=== PATIENT | female | born 1940 | race Caucasian/White ===

== ENCOUNTER 2019-11-04 08:15 | Outpatient (CLI) | payer MEDICARE, SELFPAY ==
--- NOTE | ~2019-11-04 | CT_ITS ---
EXAMINATION: CT chest high resolution wo az DATE: 11/04/2019 10:12 INDICATION: Shortness of breath TECHNIQUE: Computed tomography (CT) of the chest was performed without intravenous contrast. The dose -length product (DLP) was 119.56 mGy-cm. Automated exposure control and iterative reconstruction tech nique were employed. COMPARISON: 06/19/2019 FINDINGS: The lungs are free of acute opacities. There is no pleural effusion or pneumothorax. Cardio megaly is noted. There is calcified coronary artery atherosclerosis. There are no pathologically enla rged thoracic lymph nodes. A cardiac loop recorder is implanted in the subcutaneous tissues of the le ft anterior chest wall. There is widespread calcified atherosclerosis. A right adrenal adenoma is aga in noted. There is severe thoracic spondylosis. IMPRESSION: 1. No acute cardiopulmonary abnormality. Reviewed, dictated and finalized at location A. DIVER
--- NOTE | 2019-11-06 21:38 | WPDPFTINT ---
PFT Interpretation PFT Interpretation: DOS: 11/04/2019 REQUESTING:Dr. Figueroa REASON FOR TESTING: Amiodarone PULMONARY FUNCTION TESTS Results are reproducible. Spirometry: Normal FEV1, FVC, FEV1%. No change after bronchodilator. Lung volumes: Normal total lung capacity. Mild increase in residual volume consistent with air trapping. Normal airway resistance. Diffusion: DLCO 94% normal. Flow volume loop: Normal. IMPRESSION: Normal spirometry with mild air trapping. Compared to a prior study 11/23/2018 air trapping has improved, residual volume was 148%, now 120%. Diffusion has improved. Previously DLCO was 66% now 94%. The patient's height is recorded as one inch shorter on this test, which will change the expected values minimally. Overall testing appears improved. No evidence of lung impairment from amiodarone. Libia Figueroa MD
== END 2019-11-04 08:16 | disposition home or self-care (01) ==
PROVIDERS: PCP Family Medicine; Visit Provider Internal Medicine Critical Care Medicine
DX: R06.09 Other forms of dyspnea (principal)
CPT/HCPCS: 71250; 94060; 94726; 94729

== ENCOUNTER 2019-12-29 12:26 | Observation (INO) | payer MEDICARE, SELFPAY ==
--- NOTE | ~2019-12-29 | US_ITS ---
EXAMINATION: US right upper quadrant DATE: 12/30/2019 09:16 INDICATION: Urinary tract infection. Elevated liver function tests. TECHNIQUE: Multiple grayscale and Doppler ultrasound images of the abdomen were obtained. COMPARISON: CT dated 11/16/2017 FINDINGS: The region of the pancreas is obscured by shadowing bowel gas. Liver has normal echogenicity and cont our, with a smooth surface. No liver lesion identified. No intrahepatic biliary duct dilation suspect ed. Portal venous flow was seen in the hepatopetal, normal direction and has normal Doppler waveform. The gallbladder is normal in appearance. There is no cholelithiasis. The common bile duct measures 6 mm, which is normal. Sonographic Medina sign was reported as negative by the supervisor underwriting clerks.The proxim al inferior vena cava is patent. Right kidney measures 8.6 x 5.5 x 5.2 cm with normal contour and ech ogenicity. No hydronephrosis. IMPRESSION: 1. Normal right upper quadrant ultrasound. Reviewed, dictated and finalized at location A.
[2019-12-29 12:21] VITALS: BP 124/83; PULSE 78; RESP 16; TEMP 36.7; O2SAT 98
[2019-12-29 12:48] LABS: Basophils Percent Auto 0.5 % (0.2-1.2); Eosinophils Absolute Auto 0.3 K/mm3 (0-0.3); Eosinophils Percent Auto 4.5 % (0-4.4); Hematocrit 39.5 % (37.0-47.0); Immature Granulocyte Absolute 0.02 K/mm3 (0.00-0.031); Immature Granulocyte Percent A 0.3 % (0-0.5); Lymphocytes Absolute Auto 0.91 K/mm3 (0.9-3.2); Lymphocytes Percent Auto 14.7 % (18.3-44.2); Mean Corpuscular HGB Conc 30.4 g/dl (32-36); Mean Corpuscular Hemoglobin 29.9 pg (26-34); Mean Corpuscular Volume 98.5 fl (80-100); Mean Platelet Volume 11.4 fl (7.4-10.4); Monocytes Absolute Auto 0.3 K/mm3 (0.1-0.6); Neutrophils Absolute Auto 4.6 K/mm3 (1.3-6.7); Platelet Count Result 192 k/mm3 (150-375); Red Blood Count 4.01 M/mm3 (4.2-5.4); Red Cell Distribution Width 14.8 % (11.5-14.5); White Blood Count 6.2 K/mm3 (4.5-10.0)
[2019-12-29 12:58] LABS: Alanine Aminotransferase 74 U/L (4-35); Albumin Level 3.8 g/dL (3.5-5.1); Alkaline Phosphatase 156 U/L (38-126); Aspartate Amino Transferase 122 U/L (14-36); Bilirubin,Total 0.4 mg/dL (0.2-1.3); Blood Urea Nitrogen 38 mg/dL (7-17); Carbon Dioxide 21 mmol/L (22-30); Chloride 111 mmol/L (98-107); Estimated CRCL calculation 21 ml/min; Estimated Glomerular Filt Rate 34; Glucose 85 mg/dL (65-105); Potassium 5.1 mmol/L (3.4-5.0); Sodium 137 mmol/L (137-145)
[2019-12-29 13:07] LABS: Add Urine Microscopic? YES; Appearance Urine Turbid (Clear); Bacteria Urine 2+ /hpf; Bilirubin Urine Negative (Negative); Blood Urine 3+ (Negative); Color Urine Yellow (Yellow); Glucose Urine UA Negative (Negative); Ketones Urine Negative (Negative); Leukocyte Esterase Ur 3+ LEU/UL (Negative); Mucus Urine Rare /lpf; Nitrate Urine Positive (Negative); Protein Urine 2+ mg/dL (Negative); RBC Urine >75 /hpf (0-2); Specific Grav Ur 1.015 (1.001-1.035); Urobilinogen Urine Negative mg/dL (<2.0); WBC Urine >75 /hpf
--- NOTE | 2019-12-29 13:33 | ED.FEMALEGU ---
HPI - Female Genitourinary General Chief complaint: Urogenital-Female Stated complaint: uti Time Seen by Provider: 12/29/19 13:10 Source: patient Mode of arrival: ambulatory Limitations: no limitations History of Present Illness HPI Narrative: Patient is a 79-year-old female who presents to the emergency department with complaint of UTI. Patient has had intermittent confusion, generalized weakness, falls, and foul urine for the last few days. Daughter reports prior history of UTIs with similar symptoms. Daughter also reports patient had severe sepsis secondary to a urinary tract infection in the past. Patient lives at home with her and is unable to care for her especially with her being confused and family had to come over last night and pick her up off the floor after she fell. Patient denies any injuries and does not remember falling. MD elicited complaint: UTI Pertinent past history: recurrent UTIs Related Data Home Medications Medication Instructions Recorded Confirmed amlodipine 5 mg tablet 0.5 mg PO DAILY 07/29/19 09/19/19 apixaban 5 mg tablet 5 mg PO BID 07/29/19 09/19/19 ezetimibe 10 mg tablet 10 mg PO DAILY 07/29/19 09/19/19 metoprolol succinate 50 mg 50 mg PO DAILY 07/29/19 09/19/19 tablet,extended release 24 hr pantoprazole 40 mg tablet,delayed 40 mg PO QAM 07/29/19 09/19/19 release allopurinol 300 mg PO DAILY 07/31/19 09/19/19 aspirin [Aspir-81] 81 mg PO BID 07/31/19 09/19/19 calcium carbonate [Calcium 600] 600 mg PO BID 07/31/19 09/19/19 ferrous gluconate 236 mg PO DAILY 07/31/19 09/19/19 glucosamine sulfate [Glucosamine] 500 mg PO BID 07/31/19 09/19/19 iron, carbonyl [Feosol] 45 mg PO DAILY 07/31/19 09/19/19 levothyroxine [Synthroid] 75 mcg PO DAILY 07/31/19 09/19/19 multivitamin 1 tablet PO DAILY 07/31/19 09/19/19 omega 2-pcw-eoi-fish oil [Fish Oil] 1 cap PO BID 07/31/19 09/19/19 Allergies Allergy/AdvReac Type Severity Reaction Status Date / Time amiodarone Allergy Unknown Unknown Verified 11/07/19 12:19 amoxicillin Allergy Unknown Unknown Verified 11/07/19 12:19 atorvastatin Allergy Unknown Unknown Verified 11/07/19 12:19 celecoxib Allergy Unknown Unknown Verified 11/07/19 12:19 clavulanic acid Allergy Unknown JOINT Verified 11/07/19 12:19 PAIN codeine Allergy Unknown Unknown Verified 11/07/19 12:19 levofloxacin Allergy Unknown Unknown Verified 11/07/19 12:19 lisinopril Allergy Unknown Unknown Verified 11/07/19 12:19 nitrofurantoin Allergy Unknown Diarrhea Verified 11/07/19 12:19 pitavastatin Allergy Unknown Unknown Verified 11/07/19 12:19 shellfish derived Allergy Unknown Unknown Verified 11/07/19 12:19 shrimp Allergy Unknown Unknown Verified 11/07/19 12:19 Mzogjov-Loz-Lha Reductase Allergy Unknown unknown Verified 11/07/19 12:19 Inhibitor Sulfa (Sulfonamide Allergy Unknown Unknown Verified 11/07/19 12:19 Antibiotics) sulfamethizole Allergy Unknown stomtits Verified 11/07/19 12:19 sulfamethoxazole Allergy Unknown unknown Verified 11/07/19 12:19 trimethoprim Allergy Unknown Unknown Verified 11/07/19 12:19 zolpidem Allergy Unknown Unknown Verified 11/07/19 12:19 Shrimp Allergy Unknown SWELLING Uncoded 10/28/19 09:22 ZOLPIDEM TARTRATE Allergy Unknown unknown Uncoded 10/28/19 09:22 Review of Systems Review of Systems: All systems reviewed & are unremarkable except as noted in HPI and below Constitutional: Constitutional: Denies fatigue and Reports weakness Genitourinary: Genitourinary: Reports dysuria, Reports urinary incontinence and Reports other (Foul-smelling urine) Neurologic: Reports confusion PMFSH Past Medical History Medical History Anemia Anxiety CAD (coronary artery disease) Chronic atrial fibrillation CKD (chronic kidney disease), stage III Depression Diabetic nephropathy associated with type 2 diabetes mellitus Diastolic heart failure Echocardiogram April 2017 demonstrated normal left ventricula
[2019-12-29 13:52] VITALS: BP 133/78; PULSE 87; RESP 18; O2SAT 98
--- NOTE | 2019-12-29 13:57 | PC.NURSE ---
Pt's daughter reports that pt has had some episodes of being confused overnight last night which is what prompted her to bring the patient in. Pt is currently alert and oriented x3. Pt has no recollection of this. Daughter made aware of no visitor policy; asks what will happen if the patient becomes confused again, if she can come and sit with the patient if one is needed. Daniel, Protective Signal Operator made aware, states that at this time they are not allowing family to sit because of covid, but that it could be a possibility and can address at the time. Daughter made aware that this RN will let make the floor aware in report.
--- NOTE | 2019-12-29 15:22 | ADMGEN ---
This patient, Jessica Srinivasan, was admitted to 2 Medical Room 246-. Patient/family oriented to hospital policies and general routines including ID bracelet, bed and alarms, visiting hours, pain management, procedures, bathroom and other care routines, personal items, smoking policy, room service/diet, and visiting hours. Valuables list has been completed. Information on how to activate the Rapid Response Team has been discussed. Patient/Family are encouraged to report perceived risks to care and to ask questions if they do not understand what they are told or what they should do.
[2019-12-29 15:26] VITALS: BP 114/94; PULSE 96; RESP 18; TEMP 36.1; O2SAT 92; BMI 28.0
--- NOTE | 2019-12-29 18:00 | PM.IMHP ---
H&P: HPI History of Present Illness Chief complaint: UTI Narrative: Jessica Srinivasan is a 79-year-old female with history of recurrent urinary tract infections, chronic kidney disease, paroxysmal atrial fibrillation, coronary artery disease, hypertension, and several other comorbidities who presented to the emergency department earlier this afternoon for evaluation of suspected urinary tract infection. She seems to be a pretty good historian, however several times throughout the interview she seemed to fall asleep briefly, then coming to while mumbling nonsensical words. She tells me that she has had frequent problems with urinary tract infections, and over the last several days she notes dysuria and malodorous urine. She has also become progressively weak and family members note that she has been intermittently confused, more so than usual. She tells me that she falls ?all the time? and apparently she fell last evening however she does not recall that. She denies fever, chills, and sweats. No nausea or vomiting. She denies focal weakness and paresthesias. She does not believe that she injured herself in the reported fall yesterday. When I inquire about possible dementia, she believe she may have some underlying memory issues ?and my daughter says I probably do.? Review of Systems Review of Systems: Narrative: Twelve systems were reviewed with pertinent positives and negatives as per HPI. No fever, chills, or sweats. No recent cold or flu symptoms. She denies recent travel and sick contacts. No chest pain or shortness of breath. No cough. No diarrhea. She denies vertigo, paresthesias, and focal weakness. She ambulates with a walker. Denies excessive daytime somnolence and does not believe she has sleep apnea. Except as documented, all other systems were reviewed and are negative. [facility] Past Medical History Medical History (Updated 12/29/19 @ 22:30 by Angelina Pierson PA-C) Anemia Anxiety CAD (coronary artery disease) With history of stents. CKD (chronic kidney disease), stage III Baseline creatinine ranges between 1.4 and 1.7. Depression Diabetic nephropathy associated with type 2 diabetes mellitus Diastolic heart failure Echocardiogram April 2017 demonstrated normal left ventricular systolic function, severe concentric left ventricular hypertrophy, pseudonormal diastolic dysfunction grade 2, ejection fraction 65%, severe left atrial enlargement with severe mitral valve calcifications, mild aortic regurgitation mild tricuspid regurgitation trivial regurgitation of pulmonic valve. DVT (deep venous thrombosis) Dyslipidemia Elevated liver enzymes Essential (primary) hypertension GERD (gastroesophageal reflux disease) GI bleed Glaucoma Gout Hiatal hernia HTN (hypertension) Hypothyroidism IBS (irritable bowel syndrome) Kidney stones MRSA colonization Occlusion and stenosis of right carotid artery Osteoarthritis Osteoporosis Overactive bladder With chronic urinary incontinence Paroxysmal atrial fibrillation Pneumonia Posterior cerebral artery syndrome Unspecified macular degeneration UTI (urinary tract infection) With history of ESBL E coli. Surgical History Surgical History H/O section H/O gastric bypass H/O heart artery stent H/O lithotripsy History of cardiac catheterization History of cataract extraction Maxwell teeth extracted Family History Family History Father Acute myocardial infarction Patient's father is Mother Patient's mother is Family history of thyroid disease Grandparent Diabetes mellitus Cerebrovascular accident Other Hypertension Social History Social History (Updated 12/29/19 @ 22:27 by Angelina Pierson PA-C) Social History: The patient is and lives with her in [place]. Her , Andrea, is her health
[2019-12-29 22:00] VITALS: BP 124/54; PULSE 84; RESP 21; TEMP 36.6; O2SAT 100
[2019-12-29 22:37] LABS: Alveolar/Arterial O2 Gradient 33.3 mmHg; Base Excess ABG -7.8 mEq/l (+/-2.0); Carboxyhemoglobin 0.2 % THb (0-2.0); Fractional Inspired Oxygen 21 %; HCO3 ABG 17.7 mEq/l (22.0-26.0); Methemoglobin ABG 0.3 %THb (0-1.5); Oxygen Saturation ABG 93.7 % (95.0-100.0); Oxyhemoglobin 93.4 % THb (90.0-100.0); PCO2 ABG 35.7 mmHg (35.0-45.0); PO2 ABG 73.7 mmHg (80.0-100.0); PO2 FiO2 Ratio Arterial Blood 3.51 %; Reduced Hemoglobin 6.1 %THb (0-5.0); Total Hemoglobin 11.4 g/dL (12.0-18.0); pH ABG 7.312 (7.350-7.450)
[2019-12-29 22:38] LABS: Device ROOM AIR; Modified Allen's Test Pass; Site Drawn RIGHT RADIAL
[2019-12-29 22:51] LABS: Blood Urea Nitrogen 37 mg/dL (7-17); Calcium 8.4 mg/dL (8.4-10.2); Carbon Dioxide 19 mmol/L (22-30); Chloride 112 mmol/L (98-107); Estimated CRCL calculation 22 ml/min; Estimated Glomerular Filt Rate 31; Glucose 149 mg/dL (65-105); Potassium 4.5 mmol/L (3.4-5.0); Sodium 137 mmol/L (137-145)
[2019-12-29] MEDS: allopurinoL 300 MG TABLET PO (23:04)
[2019-12-29] MEDS: PANTOPRAZOLE 40 MG TABLET PO (23:04)
[2019-12-29] MEDS: EZETIMIBE 10 MG TABLET PO (23:14)
[2019-12-29] MEDS: SODIUM CHLORIDE 0.9% IV 1,000 ML 100 ML IV CONT (23:14)
[2019-12-29 23:20] LABS: Ammonia < 9 umol/L (9-30)
[2019-12-29 23:47] LABS: Hepatitis B Surface Antigen Negative (Negative)
[2019-12-29 23:52] LABS: HAV RESULT Negative (Negative); Hepatitis B Core IgM Result Negative (Negative)
[2019-12-30 00:04] LABS: Hepatitis C Virus Antibody Negative (Negative)
[2019-12-30 05:16] LABS: Hematocrit 36.4 % (37.0-47.0); Hemoglobin 11.5 g/dL (12.0-15.0); Mean Corpuscular HGB Conc 31.6 g/dl (32-36); Mean Corpuscular Hemoglobin 30.4 pg (26-34); Mean Corpuscular Volume 96.3 fl (80-100); Mean Platelet Volume 11.3 fl (7.4-10.4); Platelet Count Result 196 k/mm3 (150-375); Red Blood Count 3.78 M/mm3 (4.2-5.4); Red Cell Distribution Width 14.6 % (11.5-14.5); White Blood Count 5.6 K/mm3 (4.5-10.0)
[2019-12-30 05:31] LABS: Alanine Aminotransferase 61 U/L (4-35); Albumin Level 3.3 g/dL (3.5-5.1); Alkaline Phosphatase 140 U/L (38-126); Aspartate Amino Transferase 62 U/L (14-36); Bilirubin,Total 0.3 mg/dL (0.2-1.3); Blood Urea Nitrogen 35 mg/dL (7-17); Calcium 8.4 mg/dL (8.4-10.2); Carbon Dioxide 22 mmol/L (22-30); Chloride 113 mmol/L (98-107); Estimated CRCL calculation 24 ml/min; Estimated Glomerular Filt Rate 34; Glucose 56 mg/dL (65-105); Magnesium 1.9 mg/dL (1.6-2.3); Phosphorus 3.6 mg/dL (2.5-4.5); Potassium 4.3 mmol/L (3.4-5.0); Sodium 139 mmol/L (137-145)
[2019-12-30 05:56] LABS: Glucose Point of Care 93 (65-105)
[2019-12-30 06:00] VITALS: BP 139/79; PULSE 103; RESP 18; TEMP 36.2; O2SAT 97
[2019-12-30] MEDS: LEVOTHYROXINE SODIUM 75 MCG TABLET PO (07:40)
[2019-12-30 08:07] LABS: Glucose Point of Care 80 (65-105)
[2019-12-30 11:52] LABS: Glucose Point of Care 150 (65-105)
[2019-12-30] MEDS: OMEGA 3 POLYUNSAT FATTY ACIDS 1 GM CAP PO ×2 (12:10→18:30)
[2019-12-30] MEDS: FERROUS GLUCONATE 324 MG TABLET PO (12:10)
[2019-12-30] MEDS: CALCIUM CARBONATE (TUMS) 500 MG (200 MG ELEMENTAL) PO (12:10)
[2019-12-30] MEDS: FLUOXETINE HCL 20 MG CAP 40 MG PO (12:10)
[2019-12-30] MEDS: AMLODIPINE BESYLATE 2.5 MG TABLET PO (12:10)
[2019-12-30] MEDS: FUROSEMIDE 20 MG TABLET PO (12:11)
[2019-12-30] MEDS: MULTIVITAMINS THERAPEUTIC TAB (*BKC) 1 TABLET PO ×2 (12:11→18:31)
[2019-12-30] MEDS: METOPROLOL SUCCINATE EXT REL 50 MG TABCR PO (12:11)
[2019-12-30] MEDS: OPTI-GEN TAB 1 TABLET PO (12:11)
--- NOTE | 2019-12-30 12:15 | PC.NURSE ---
Patient was delayed in taking 0900 medication due to an ultrasound she had to be NPO for and after that therapy was working with her and then the doctor came to assess her. All 0900 medications were then given with no issue.
[2019-12-30 14:00] VITALS: BP 139/93; PULSE 92; RESP 16; TEMP 36.6; O2SAT 98
--- NOTE | 2019-12-30 15:12 | PM.IMPN ---
Progress Note: A&P Assessment and Plan (1) Urinary tract infection: Qualifiers: Hematuria presence: without hematuria Urinary tract infection type: site unspecified Qualified Code(s): N39.0 - Urinary tract infection, site not specified Code(s): N39.0 - Urinary tract infection, site not specified Status: Acute Assessment and Plan: She has been started on ceftriaxone, pending urine culture. 12/30/19 15:12 patient is 79-year-old female with history of recurrent UTI was recently treated for UTI with Klebsiella pneumonia and E coli presented emergency department with a complaint of dysuria frequency of urination malodorous urine, at the time of admission patient was quite confused patient was started on Rocephin, this morning patient old alert oriented and cooperative is feeling much better compared to when she arrived presently see denies any dysuria frequency fever or chills, sees waiting for PT OT to work with her. Will follow up on urine culture and further recommendation to follow (2) Generalized weakness: Code(s): R53.1 - Weakness Status: Acute Assessment and Plan: Presumably secondary to above. No focal deficits to suggest any other pathology. Initiate fall precautions. PT/OT consulted. (3) Elevated liver enzymes: Code(s): R74.8 - Abnormal levels of other serum enzymes Status: Acute Assessment and Plan: This has been noted on previous labs. Check hepatitis panel, right upper quadrant ultrasound, and monitor. Patient is clinically stable denies any complaint abdominal pain nausea or vomiting hepatitis panel is negative as well as liver ultrasound. Most likely secondary to inflammation will continue to monitor (4) Hyperkalemia: Code(s): E87.5 - Hyperkalemia Status: Acute Assessment and Plan: Will repeat potassium this evening after IV fluid rehydration. Will will hydrate and monitor (5) Paroxysmal atrial fibrillation: Code(s): I48.0 - Paroxysmal atrial fibrillation Status: Acute Assessment and Plan: Currently in a sinus rhythm. Continue beta-amparo. She is on apixaban, however given her frequent falls I am going to put this on hold. We will need to further discuss whether or not it is appropriate for her to be on this medication. Rate is controlled (6) HTN (hypertension): Code(s): I10 - Essential (primary) hypertension Status: Acute Assessment and Plan: Blood pressures were reviewed and they are well controlled. Continue antihypertensives and monitor daily. (7) Hypothyroidism: Code(s): E03.9 - Hypothyroidism, unspecified Status: Acute Assessment and Plan: Continue levothyroxine and check TSH. TSH is within normal limits Subjective Date/time seen: 12/30/19 15:12 patient is 79-year-old female with history of recurrent UTI was recently treated for UTI with Klebsiella pneumonia and E coli presented emergency department with a complaint of dysuria frequency of urination malodorous urine, at the time of admission patient was quite confused patient was started on Rocephin, this morning patient old alert oriented and cooperative is feeling much better compared to when she arrived presently see denies any dysuria frequency fever or chills, sees waiting for PT OT to work with her. Review of Systems Review of Systems: All systems reviewed & are unremarkable except as noted in HPI and below Exam Const: General: comfortable and no acute distress HENMT: General nose exam: Normal nares present Mouth: Y
[2019-12-30 16:32] LABS: Glucose Point of Care 116 (65-105)
[2019-12-30] MEDS: allopurinoL 300 MG TABLET PO (20:50)
[2019-12-30] MEDS: EZETIMIBE 10 MG TABLET PO (20:50)
[2019-12-30] MEDS: PANTOPRAZOLE 40 MG TABLET PO (20:50)
[2019-12-30 21:06] LABS: Glucose Point of Care 88 (65-105)
[2019-12-30 22:00] VITALS: BP 142/57; PULSE 90; RESP 20; TEMP 36.6; O2SAT 98
[2019-12-31] MEDS: LEVOTHYROXINE SODIUM 75 MCG TABLET PO (05:50)
[2019-12-31 06:00] VITALS: BP 133/70; PULSE 100; RESP 20; TEMP 36.7; O2SAT 97
[2019-12-31 07:55] VITALS: PULSE 80
[2019-12-31] MEDS: METOPROLOL SUCCINATE EXT REL 50 MG TABCR PO (07:55)
[2019-12-31] MEDS: MULTIVITAMINS THERAPEUTIC TAB (*BKC) 1 TABLET PO ×2 (07:55→17:10)
[2019-12-31] MEDS: FERROUS GLUCONATE 324 MG TABLET PO (07:55)
[2019-12-31] MEDS: FUROSEMIDE 20 MG TABLET PO (07:57)
[2019-12-31] MEDS: AMLODIPINE BESYLATE 2.5 MG TABLET PO (07:57)
[2019-12-31] MEDS: FLUOXETINE HCL 20 MG CAP 40 MG PO (07:57)
[2019-12-31] MEDS: OMEGA 3 POLYUNSAT FATTY ACIDS 1 GM CAP PO ×2 (07:57→17:11)
[2019-12-31] MEDS: OPTI-GEN TAB 1 TABLET PO (07:57)
[2019-12-31] MEDS: CALCIUM CARBONATE (TUMS) 500 MG (200 MG ELEMENTAL) PO (07:58)
[2019-12-31 08:10] LABS: Hematocrit 37.9 % (37.0-47.0); Hemoglobin 11.7 g/dL (12.0-15.0); Mean Corpuscular HGB Conc 30.9 g/dl (32-36); Mean Corpuscular Hemoglobin 29.7 pg (26-34); Mean Corpuscular Volume 96.2 fl (80-100); Mean Platelet Volume 10.9 fl (7.4-10.4); Platelet Count Result 192 k/mm3 (150-375); Red Blood Count 3.94 M/mm3 (4.2-5.4); Red Cell Distribution Width 14.6 % (11.5-14.5); White Blood Count 6.1 K/mm3 (4.5-10.0)
[2019-12-31 08:17] LABS: Blood Urea Nitrogen 39 mg/dL (7-17); Calcium 8.8 mg/dL (8.4-10.2); Carbon Dioxide 23 mmol/L (22-30); Chloride 111 mmol/L (98-107); Estimated CRCL calculation 24 ml/min; Estimated Glomerular Filt Rate 34; Glucose 81 mg/dL (65-105); Potassium 4.1 mmol/L (3.4-5.0); Sodium 139 mmol/L (137-145)
[2019-12-31 08:20] LABS: Glucose Point of Care 73 (65-105)
[2019-12-31 12:18] LABS: Glucose Point of Care 144 (65-105)
[2019-12-31 13:37] VITALS: BP 133/88; PULSE 98; RESP 20; TEMP 36.3; O2SAT 100
--- NOTE | 2019-12-31 14:54 | PM.IMPN ---
Progress Note: A&P Assessment and Plan (1) Urinary tract infection: Qualifiers: Hematuria presence: without hematuria Urinary tract infection type: site unspecified Qualified Code(s): N39.0 - Urinary tract infection, site not specified Code(s): N39.0 - Urinary tract infection, site not specified Status: Acute Assessment and Plan: She has been started on ceftriaxone, and will continue after history even know urine is growing small colony count several organisms. patient is 79-year-old female with history of recurrent UTI was recently treated for UTI with Klebsiella pneumonia and E coli presented emergency department with a complaint of dysuria frequency of urination malodorous urine, at the time of admission patient was quite confused patient was started on Rocephin, this morning patient alert oriented and cooperative is feeling much better compared to when she arrived , denies any dysuria frequency fever or chills, PT OT to work with her. (2) Generalized weakness: Code(s): R53.1 - Weakness Status: Acute Assessment and Plan: Presumably secondary to above. No focal deficits to suggest any other pathology. PT/OT seeing. (3) Elevated liver enzymes: Code(s): R74.8 - Abnormal levels of other serum enzymes Status: Acute Assessment and Plan: This has been noted on previous labs. hepatitis panel and right upper quadrant ultrasound negative Patient is clinically stable denies any complaint abdominal pain nausea or vomiting hepatitis panel is negative as well as liver ultrasound. Most likely secondary to inflammation will continue to monitor serially (4) Hyperkalemia: Code(s): E87.5 - Hyperkalemia Status: Acute Assessment and Plan: repeat potassium this evening after IV fluid rehydration in regular range, 4.1 this am (5) Paroxysmal atrial fibrillation: Code(s): I48.0 - Paroxysmal atrial fibrillation Status: Acute Assessment and Plan: Currently in a sinus rhythm. Continue beta-amparo. She is on apixaban, however given her frequent falls I am going to put this on hold. We will need to further discuss whether or not it is appropriate for her to be on this medication. Rate is controlled (6) HTN (hypertension): Code(s): I10 - Essential (primary) hypertension Status: Acute Assessment and Plan: Blood pressures were reviewed and they are well controlled. Continue antihypertensives and monitor daily.( amlodipine and metoprolol) (7) Hypothyroidism: Code(s): E03.9 - Hypothyroidism, unspecified Status: Acute Assessment and Plan: Continue levothyroxine TSH is within normal limits Subjective Date/time seen: 12/31/19 14:54 Interval history: Date of visit 12/30. 79 year old white female with chronic renal failure stage 3 and recurrent UTI ice admitted with change mental status and recurrent UTI. Hydrated gingerly and given IV ceftriaxone and is much clearer mentally this a.m.. Minimal nausea but eating better and no fever chills Exam Narrative: Exam Narrative: Blood pressure 132/86 pulse is 98 afebrile Lungs clear CV regular rate rhythm Abdomen is soft nontender no masses Extremities without edema good distal pulses Neuro alert oriented x3 cooperative with no focal deficits Objective Data Vital Signs Vital Signs: Vital Signs - 24 hr 12/30/19 22:00 12/31/19 06:00 12/31/19 07:55 Temperature 36.6 C 36.7 C Pulse Rate 90 100 80 Respiratory Rate 20 20 Blood Pressure 142/57 H 133/70 Pulse Oximetry 98 97
[2019-12-31 20:00] VITALS: BP 122/72; PULSE 85; RESP 20; TEMP 36.8; O2SAT 97
[2019-12-31] MEDS: PANTOPRAZOLE 40 MG TABLET PO (20:01)
[2019-12-31] MEDS: EZETIMIBE 10 MG TABLET PO (20:01)
[2019-12-31] MEDS: allopurinoL 300 MG TABLET PO (20:01)
[2019-12-31 20:57] LABS: Glucose Point of Care 121 (65-105)
[2020-01-01 04:00] VITALS: BP 140/88; PULSE 103; RESP 20; TEMP 36.9; O2SAT 97
[2020-01-01] MEDS: LEVOTHYROXINE SODIUM 75 MCG TABLET PO (05:42)
[2020-01-01 06:13] LABS: Hematocrit 41.9 % (37.0-47.0); Hemoglobin 12.8 g/dL (12.0-15.0); Mean Corpuscular HGB Conc 30.5 g/dl (32-36); Mean Corpuscular Hemoglobin 29.6 pg (26-34); Mean Corpuscular Volume 96.8 fl (80-100); Mean Platelet Volume 11.7 fl (7.4-10.4); Platelet Count Result 231 k/mm3 (150-375); Red Blood Count 4.33 M/mm3 (4.2-5.4); Red Cell Distribution Width 14.6 % (11.5-14.5); White Blood Count 7.8 K/mm3 (4.5-10.0)
[2020-01-01 06:23] LABS: Alanine Aminotransferase 66 U/L (4-35); Albumin Level 4.1 g/dL (3.5-5.1); Alkaline Phosphatase 159 U/L (38-126); Aspartate Amino Transferase 69 U/L (14-36); Bilirubin,Total 0.4 mg/dL (0.2-1.3); Blood Urea Nitrogen 44 mg/dL (7-17); Calcium 9.1 mg/dL (8.4-10.2); Carbon Dioxide 24 mmol/L (22-30); Chloride 105 mmol/L (98-107); Estimated CRCL calculation 21 ml/min; Estimated Glomerular Filt Rate 29; Glucose 91 mg/dL (65-105); Potassium 4.1 mmol/L (3.4-5.0); Sodium 137 mmol/L (137-145)
[2020-01-01 07:41] LABS: Glucose Point of Care 90 (65-105)
[2020-01-01] MEDS: CALCIUM CARBONATE (TUMS) 500 MG (200 MG ELEMENTAL) PO (08:13)
[2020-01-01] MEDS: FUROSEMIDE 20 MG TABLET PO (08:13)
[2020-01-01] MEDS: OPTI-GEN TAB 1 TABLET PO (08:13)
[2020-01-01] MEDS: FLUOXETINE HCL 20 MG CAP 40 MG PO (08:13)
[2020-01-01 08:14] VITALS: PULSE 98
[2020-01-01] MEDS: METOPROLOL SUCCINATE EXT REL 50 MG TABCR PO (08:14)
[2020-01-01] MEDS: OMEGA 3 POLYUNSAT FATTY ACIDS 1 GM CAP PO (08:14)
[2020-01-01] MEDS: MULTIVITAMINS THERAPEUTIC TAB (*BKC) 1 TABLET PO (08:14)
[2020-01-01] MEDS: AMLODIPINE BESYLATE 2.5 MG TABLET PO (08:14)
[2020-01-01] MEDS: FERROUS GLUCONATE 324 MG TABLET PO (08:14)
[2020-01-01 11:26] LABS: Glucose Point of Care 125 (65-105)
--- NOTE | 2020-01-02 17:59 | PM.DS ---
DS: Diagnosis Admitting Diagnosis Admitting Diagnosis: Urinary tract infection, site not specified Discharge Diagnosis (1) Urinary tract infection: Qualifiers: Hematuria presence: without hematuria Urinary tract infection type: site unspecified Qualified Code(s): N39.0 - Urinary tract infection, site not specified Code(s): N39.0 - Urinary tract infection, site not specified Status: Acute Assessment and Plan: She was treated with 3 days of IV ceftriaxone, and will continue after history even know urine grew only small colony count several organisms Discharged home on cefdinir 300 b.i.d. for total 5 days treat. patient is 79-year-old female with history of recurrent UTI was recently treated for UTI with Klebsiella pneumonia and E coli presented emergency department with a complaint of dysuria frequency of urination malodorous urine, at the time of admission patient was quite confused patient was started on Rocephin, (2) Generalized weakness: Code(s): R53.1 - Weakness Status: Acute Assessment and Plan: Presumably secondary to above. No focal deficits to suggest any other pathology. PT/OT seeing and ambulating with PT before discharge. (3) Elevated liver enzymes: Code(s): R74.8 - Abnormal levels of other serum enzymes Status: Acute Assessment and Plan: This has been noted on previous labs. hepatitis panel and right upper quadrant ultrasound negative Patient is clinically stable denies any complaint abdominal pain nausea or vomiting hepatitis panel is negative as well as liver ultrasound. Most likely secondary to fatty infiltration (4) Paroxysmal atrial fibrillation: Code(s): I48.0 - Paroxysmal atrial fibrillation Status: Acute Assessment and Plan: Currently in a sinus rhythm. Continue beta-amparo. She is on apixaban, however given her frequent falls she will discuss with primary care whether to continue. Eliquis was restarted on discharge (5) HTN (hypertension): Code(s): I10 - Essential (primary) hypertension Status: Acute Assessment and Plan: Blood pressures were reviewed and they are well controlled. Continue antihypertensives and monitor daily.( amlodipine and metoprolol) (6) Hypothyroidism: Code(s): E03.9 - Hypothyroidism, unspecified Status: Acute Assessment and Plan: Continue levothyroxine TSH is within normal limits DS: Summary Hospital Course Hospital Course: 79-year-old hypertensive white female with paroxysmal AFib on anticoagulation admitted with confusion and falling. Found to have pyuria and with her history of recurring UTIs was empirically started on antibiotics. With antibiotics and mild fluid her mental status improved to baseline but urine culture grew only mixed organisms. With her history and her response we treated her with 3 days of IV ceftriaxone here and continue the cefdinir 300 b.i.d. at home for a total of 5 days treatment Her anticoagulation was continued and she will have further discussions with her primary care whether to continue with her episodes of falling Time Spent with Patient Time attestation: Total time spent providing and/or coordinating discharge services: 35 minutes Exam Narrative: Exam Narrative: Condition on discharge Blood pressure 140/84 pulse is 94 in regular sat 97% on room air afebrile Lungs clear CV regular rate rhythm Abdomen is soft nontender Extremities without edema Neuro alert cooperative pleasant oriented x3 at this point, has ambulated with physical therapy Discharge Plan Discharge Attending physician on
== END 2020-01-01 13:43 | disposition home health service (06) ==
LOC: ANHED 14:26 → ANH2MED 01-01 07:45
PROVIDERS: Family Medicine; Physician Assistant; Admitting Provider Internal Medicine; Emergency Provider Emergency Medicine; PCP Family Medicine; Visit Provider Physician Assistant
DX: N39.0 Urinary tract infection, site not specified (principal); Z87.440 Personal history of urinary (tract) infections; N32.81 Overactive bladder; R53.1 Weakness; R74.8 Abnormal levels of other serum enzymes; I48.0 Paroxysmal atrial fibrillation; E11.22 Type 2 diabetes mellitus with diabetic chronic kidney disease; I12.9 Hypertensive chronic kidney disease with stage 1 through stage 4 chronic kidney disease, or unspecified chronic kidney disease; N18.3 Chronic kidney disease, stage 3 (moderate); E87.5 Hyperkalemia; I25.10 Atherosclerotic heart disease of native coronary artery without angina pectoris; E78.5 Hyperlipidemia, unspecified; M10.9 Gout, unspecified; E03.9 Hypothyroidism, unspecified; W19.XXXA Unspecified fall, initial encounter; Z79.01 Long term (current) use of anticoagulants; Z79.82 Long term (current) use of aspirin; Z79.899 Other long term (current) drug therapy; Z86.718 Personal history of other venous thrombosis and embolism; Z87.891 Personal history of nicotine dependence; Z95.5 Presence of coronary angioplasty implant and graft
CPT/HCPCS: 36415; 36600; 51701; 76705; 80048; 80053; 80069; 80074; 80076; 81001; 82140; 82375; 82607; 82805; 83050; 83735; 84443; 85025; 85027; 87086; 87088; 94762; 96361; 96365; 96366; 97110; 97116; 97161; 97165; 97530; 99285; A9270; G0378; J0696; J7030

== ENCOUNTER 2020-02-12 08:15 | Outpatient (RCR) | payer MEDICARE, SELFPAY ==
--- NOTE | 2020-01-17 16:26 | PTOPEVAL ---
PHYSICAL THERAPY EVALUATION AND PLAN OF CARE Thank you for referring Jessica Srinivasan to [facility]. I recommend Jessica participate in physical therapy 2x/week for 4 weeks. Please review, sign, date and return this plan of care KEYANNA. I agree with and certify that the following plan of care is medically necessary. Referring Physician Date Attending Provider: Fer Arambula MD Evaluation Outpatient Past Medical History Cardiovascular History Hx Atrial Fibrillation Yes Hx Cardiac Catheterization Yes Hx Coronary Stent Yes Hx Hypertension Yes: controlled with weight loss Hx Other Cardiac Disorders Yes: implanted heart monitor Respiratory History Hx Asthma Yes Hx Pneumonia Yes Gastrointestinal History Hx Gastric Bypass Surgery Yes Genitourinary History Hx Kidney Stones Yes Hx Renal Disease Yes: stage 3 Hx Urinary Tract Infection Yes Musculoskeletal History Hx Arthritis Yes: knees Hematological History Hx Blood Transfusions Yes: x2 Hx Blood Transfusion Reaction Yes Endocrine History Hx Hypothyroidism Yes HEENT History Hx Cataracts Yes: removed Integumentary History Hx Skin Disorders No Significant History Reproductive History Hx Section Yes Hx Post Menopausal Yes Evaluation Information Problem Diagnosis bilateral knee pain, OA Onset 1month ago Subjective Information Jessica has a history of Query Text:As Reported By Patient/ bilateral knee OA. The knee Family pain is chronic, but several weeks ago she was having difficulty walking and hospitalized for UTI. The infection has resolved, but her walking and endurance have declined. Prior Level of Function Home Setting Home Type Single Level Environmental Barriers Railing, Bilateral,Stairs, 2-4 Living Situation With Spouse Mobility Assistive Devices (Used Last 3 Walker, Rollator Months) Bathing Equipment Grab Bars,Tub Seat With Back Self Report Pain Assessment Bilateral Knee(s) Reported Pain Level 2 Pain Description Aching,Sharp Lowest Pain Intensity 1 Greatest Pain Intensity 8 Pain Aggravating Factors Walking,Weight Bearing/ Standing Lower Extremity Range of Motion Knee Range of Motion Right Knee Flexion Range of Motion - Active 111 Knee Extension Range of Motion - Active -25 Query Text:
--- NOTE | 2020-02-05 08:28 | PCPTNOTE ---
Patient called & cancelled scheduled appointment this date due to not feeling well.
--- NOTE | 2020-02-14 08:46 | PCPTNOTE ---
Patient called & cancelled scheduled appointment this date due to illness.
--- NOTE | 2020-03-25 08:34 | PCPTNOTE ---
PHYSICAL THERAPY DISCHARGE NOTE Attending Provider: Fer Arambula MD Patient:Jessica Srinivasan Date of :1940 Jessica has not returned for any further treatments since 02/12/2020, therefore she will be discharged at this time. Patient?s initial visit was on 01/17/2020. The goals have not been met. Thank you for referring this patient to [facility]. Please review, sign, date and return this discharge summary KEYANNA. I have been updated about the patient's current status and I agree with discharge from the above service at this time. Referring Physician Date
== END 2020-03-26 14:10 | disposition home or self-care (01) ==
LOC: ANHPT 08:15
PROVIDERS: PCP Family Medicine; Visit Provider Family Medicine
DX: M17.0 Bilateral primary osteoarthritis of knee (principal)
CPT/HCPCS: 97014; 97110; 97162; G0283

== ENCOUNTER 2020-02-29 08:48 | Emergency (ER) | payer MEDICARE, SELFPAY ==
[2020-02-29 09:02] VITALS: BP 126/71; PULSE 80; RESP 16; TEMP 36.6; O2SAT 96
--- NOTE | 2020-02-29 09:49 | ED.EAR ---
HPI - Ear Problem General Chief complaint: Ear Stated complaint: earache x 3 weeks Time Seen by Provider: 02/29/20 08:54 History of Present Illness HPI Narrative: Patient is a 79-year-old female who presents the ER with right ear pain. Was seen 2 weeks ago at her PCPs office and diagnosed with otitis externa. She was given eardrops. Pain persisted so she went to a dentist who thought she may be suffering from TMJ and grinding her teeth but had no actual dental issues. Pain has continued to persist. No fevers or chills or sweats. No change in her ability to hear. Pain is nonradiating. No drainage from her ear. She will take prescribed pain medications and still wake up at night with pain in her ear. No rash to her face or numbness or tingling over her cheek or forehead. She has not been in any hot tubs or lakes. Related Data Home Medications Medication Instructions Recorded Confirmed amlodipine 5 mg tablet 0.5 mg PO DAILY 07/29/19 02/24/20 apixaban 5 mg tablet 10 mg PO BID 07/29/19 02/24/20 ezetimibe 10 mg tablet 10 mg PO HS 07/29/19 02/24/20 metoprolol succinate 50 mg 50 mg PO DAILY 07/29/19 02/24/20 tablet,extended release 24 hr allopurinol 300 mg PO HS 07/31/19 02/24/20 calcium carbonate [Calcium 600] 600 mg PO DAILY 07/31/19 02/24/20 ferrous gluconate 236 mg PO DAILY 07/31/19 02/24/20 glucosamine sulfate [Glucosamine] 500 mg PO BID 07/31/19 02/24/20 iron, carbonyl [Feosol] 45 mg PO DAILY 07/31/19 02/24/20 multivitamin 1 tablet PO BID 07/31/19 02/24/20 omega 5-gnj-tjd-fish oil [Fish Oil] 1 cap PO BID 07/31/19 02/24/20 Bone Density Calcium + D 600 mg PO DAILY 12/29/19 02/24/20 PreserVision AREDS 1 tablet PO DAILY 12/29/19 02/24/20 cranberry extract 500 mg PO DAILY 12/29/19 02/24/20 d-mannose 500 ea PO TID 12/29/19 02/24/20 Allergies Allergy/AdvReac Type Severity Reaction Status Date / Time amiodarone Allergy Unknown Unknown Verified 02/24/20 14:16 amoxicillin Allergy Unknown Unknown Verified 02/24/20 14:16 atorvastatin Allergy Unknown Unknown Verified 02/24/20 14:16 celecoxib Allergy Unknown Unknown Verified 02/24/20 14:16 clavulanic acid Allergy Unknown JOINT Verified 02/24/20 14:16 PAIN codeine Allergy Unknown Unknown Verified 02/24/20 14:16 levofloxacin Allergy Unknown Unknown Verified 02/24/20 14:16 lisinopril Allergy Unknown Unknown Verified 02/24/20 14:16 nitrofurantoin Allergy Unknown Diarrhea Verified 02/24/20 14:16 pitavastatin Allergy Unknown Unknown Verified 02/24/20 14:16 shellfish derived Allergy Unknown Unknown Verified 02/24/20 14:16 shrimp Allergy Unknown Unknown Verified 02/24/20 14:16 Trtjbzk-Bzy-Sys Reductase Allergy Unknown unknown Verified 02/24/20 14:16 Inhibitor Sulfa (Sulfonamide Allergy Unknown Unknown Verified 02/24/20 14:16 Antibiotics) sulfamethizole Allergy Unknown stomtits Verified 02/24/20 14:16 sulfamethoxazole Allergy Unknown unknown Verified 02/24/20 14:16 trimethoprim Allergy Unknown Unknown Verified 02/24/20 14:16 zolpidem Allergy Unknown Unknown Verified 02/24/20 14:16 Shrimp Allergy Unknown SWELLING Uncoded 02/05/20 11:28 ZOLPIDEM TARTRATE Allergy Unknown unknown Uncoded 02/05/20 11:28 Review of Systems Constitutional: Constitutional: Denies chills and Denies fever(s) ENT: Denies nasal congestion and Denies sore throat Comments: Right ear pain PMFSH Social History Social History Social History: The patient is and lives with her in [place]. Her , Andrea, is her healthcare power of resident care assistant. She is listed as a full code. She apparently smoked for 7 years, remotely. No alcohol or drug abuse. Years smoked: 7 Smoking status: Former smoker Tobacco type: cigarettes Second hand tobacco smoke exposure: Yes Smoking end date: 09/11/11 Alcohol intake: never Substance use: never Gender identity (if verbalized by the patient): Female Spiritual care concerns: No Agree
== END 2020-02-29 10:12 | disposition home or self-care (01) ==
PROVIDERS: Emergency Provider Emergency Medicine; PCP Family Medicine
DX: H60.01 Abscess of right external ear (principal); Z87.891 Personal history of nicotine dependence; Z79.01 Long term (current) use of anticoagulants; D64.9 Anemia, unspecified; I25.10 Atherosclerotic heart disease of native coronary artery without angina pectoris; F41.9 Anxiety disorder, unspecified; F32.9 Major depressive disorder, single episode, unspecified; Z86.718 Personal history of other venous thrombosis and embolism; E78.5 Hyperlipidemia, unspecified; E11.22 Type 2 diabetes mellitus with diabetic chronic kidney disease; I13.0 Hypertensive heart and chronic kidney disease with heart failure and stage 1 through stage 4 chronic kidney disease, or unspecified chronic kidney disease; N18.3 Chronic kidney disease, stage 3 (moderate); I50.30 Unspecified diastolic (congestive) heart failure; H40.9 Unspecified glaucoma; K21.9 Gastro-esophageal reflux disease without esophagitis; M10.9 Gout, unspecified; E03.9 Hypothyroidism, unspecified; K58.9 Irritable bowel syndrome, unspecified; Z87.442 Personal history of urinary calculi; Z86.14 Personal history of Methicillin resistant Staphylococcus aureus infection; M19.90 Unspecified osteoarthritis, unspecified site; N32.81 Overactive bladder; M81.0 Age-related osteoporosis without current pathological fracture; Z87.440 Personal history of urinary (tract) infections; H35.30 Unspecified macular degeneration; Z98.84 Bariatric surgery status; Z95.5 Presence of coronary angioplasty implant and graft; Z98.49 Cataract extraction status, unspecified eye
CPT/HCPCS: 99281

== ENCOUNTER 2020-03-15 00:01 | Emergency (ER) | payer MEDICARE, SELFPAY ==
--- NOTE | ~2020-03-15 | CT_ITS ---
EXAMINATION: CT IAC/mastoids BI wo con DATE: 03/15/2020 00:59 INDICATION: Right ear pain TECHNIQUE: Computed tomography (CT) of the temporal bones was performed without intravenous contrast. The dose-length product was 429.71 mGy-cm. COMPARISON: Head CT dated 02/10/2019 FINDINGS: Symmetric increased prominence of the sulci and ventricles consistent with mild age-appropriate diffu se volume loss. There is moderate scattered white matter hypoattenuation consistent with chronic smal l vessel ischemic disease. No acute intracranial hemorrhage, acute infarction or abnormal extra axial fluid collection within the visualized calvarium. Changes of bilateral intraocular lens replacement. . Intracranial calcified cerebral atherosclerosis is noted. RIGHT TEMPORAL BONE: There is prominent soft tissue thickening around the external auditory canal consistent with otitis e xterna. Small right mastoid effusion. There is mild thickening of the right tympanic membrane and min imal density at Prussak space. The internal auditory canal, cochlea, vestibule, semicircular canals, oval window, vestibular aqueduct, ossicles and scutum appear unremarkable. No abnormalities identifie d along the course of the facial nerve. LEFT TEMPORAL BONE: The internal auditory canal, cochlea, vestibule, semicircular canals, oval window, vestibular aqueduc t, ossicles, scutum, Prussak space, facial nerve course, mastoid air cells, tympanic membrane and ext ernal auditory canal normal. IMPRESSION: 1. Right otitis externa with thickening of the tympanic membrane and small right mastoid effusion whi ch could be reactive or related to associated mastoiditis. Minimal density at Prussak space potential ly developing otitis interna. Reviewed, dictated and finalized at location A. IMPRESSION: 1. Right otitis externa with thickening of the tympanic membrane and small righ t mastoid effusion which could be reactive or related to associated mastoiditis . Minimal density at Prussak space potentially developing otitis interna.
[2020-03-15 00:11] VITALS: BP 100/81; PULSE 98; RESP 20; TEMP 36.8; O2SAT 99
--- NOTE | 2020-03-15 00:22 | ED.EAR ---
HPI - Ear Problem General Chief complaint: Ear Stated complaint: earache for 3 weeks Time Seen by Provider: 03/15/20 00:05 Source: RN notes reviewed and old records reviewed History of Present Illness HPI Narrative: Patient presents emergency department from home for right ear pain. Patient states symptoms been ongoing for the past 3 weeks. Patient has been seen in the emergency department as well as by ENT and had an abscess in the right ear drained on 11 March. Patient is currently on clindamycin as well as antibiotic drops. States continues to have pain. States she took Motrin this evening and around 6 PM with no relief. She denies any fevers or chills rhinorrhea sore throat or any other symptoms Related Data Home Medications Medication Instructions Recorded Confirmed amlodipine 5 mg tablet 0.5 mg PO DAILY 07/29/19 03/04/20 apixaban 5 mg tablet 10 mg PO BID 07/29/19 03/04/20 ezetimibe 10 mg tablet 10 mg PO HS 07/29/19 03/04/20 metoprolol succinate 50 mg 50 mg PO DAILY 07/29/19 03/04/20 tablet,extended release 24 hr allopurinol 300 mg PO HS 07/31/19 03/04/20 calcium carbonate [Calcium 600] 600 mg PO DAILY 07/31/19 03/04/20 ferrous gluconate 236 mg PO DAILY 07/31/19 03/04/20 glucosamine sulfate [Glucosamine] 500 mg PO BID 07/31/19 03/04/20 iron, carbonyl [Feosol] 45 mg PO DAILY 07/31/19 03/04/20 multivitamin 1 tablet PO BID 07/31/19 03/04/20 omega 5-pns-hfx-fish oil [Fish Oil] 1 cap PO BID 07/31/19 03/04/20 Bone Density Calcium + D 600 mg PO DAILY 12/29/19 03/04/20 PreserVision AREDS 1 tablet PO DAILY 12/29/19 03/04/20 cranberry extract 500 mg PO DAILY 12/29/19 03/04/20 d-mannose 500 ea PO TID 12/29/19 03/04/20 clindamycin HCl 300 mg PO 03/15/20 coQ10 (ubiquinol) PO 03/15/20 garlic 1,000 mg PO DAILY 03/15/20 [id number]-mapssqzld-SR drp 03/15/20 Allergies Allergy/AdvReac Type Severity Reaction Status Date / Time amiodarone Allergy Unknown Unknown Verified 03/15/20 00:14 amoxicillin Allergy Unknown Unknown Verified 03/15/20 00:14 atorvastatin Allergy Unknown Unknown Verified 03/15/20 00:14 celecoxib Allergy Unknown Unknown Verified 03/15/20 00:14 clavulanic acid Allergy Unknown JOINT Verified 03/15/20 00:14 PAIN codeine Allergy Unknown Unknown Verified 03/15/20 00:14 levofloxacin Allergy Unknown Unknown Verified 03/15/20 00:14 lisinopril Allergy Unknown Unknown Verified 03/15/20 00:14 nitrofurantoin Allergy Unknown Diarrhea Verified 03/15/20 00:14 pitavastatin Allergy Unknown Unknown Verified 03/15/20 00:14 shellfish derived Allergy Unknown Unknown Verified 03/15/20 00:14 shrimp Allergy Unknown Unknown Verified 03/15/20 00:14 Eovcbtd-Spc-Rre Reductase Allergy Unknown unknown Verified 03/15/20 00:14 Inhibitor Sulfa (Sulfonamide Allergy Unknown Unknown Verified 03/15/20 00:14 Antibiotics) sulfamethizole Allergy Unknown stomtits Verified 03/15/20 00:14 sulfamethoxazole Allergy Unknown unknown Verified 03/15/20 00:14 trimethoprim Allergy Unknown Unknown Verified 03/15/20 00:14 zolpidem Allergy Unknown Unknown Verified 03/15/20 00:14 Shrimp Allergy Unknown SWELLING Uncoded 02/05/20 11:28 ZOLPIDEM TARTRATE Allergy Unknown unknown Uncoded 02/05/20 11:28 Review of Systems Review of Systems: Narrative: Gen.: Denies fevers or chills Eyes: Denies eye pain or visual change ENT: See HPI Respiratory: Denies shortness of breath or cough CV: Denies chest pain GI: Denies abdominal pain nausea, emesis Musculoskeletal: Denies neck pain Neuro: Denies headache Skin: Denies rash Except as documented, all other systems reviewed and negative PMFSH Past Medical History Medical History Anemia Anxiety CAD (coronary artery disease) With history of stents. CKD (chronic kidney disease), stage III Baseline creatinine ranges between 1.4 and 1.7. Depression Diabetic nephropathy associated with type 2 diabetes mellitus Diastolic heart failure Echocardiogram April 2017 d
--- NOTE | 2020-03-15 00:45 | PC.NURSE ---
Patient taken to CT.
[2020-03-15 02:11] VITALS: BP 141/88; PULSE 98; RESP 20; O2SAT 99
== END 2020-03-15 02:15 | disposition home or self-care (01) ==
PROVIDERS: Emergency Provider Emergency Medicine; PCP Family Medicine
DX: H60.91 Unspecified otitis externa, right ear (principal); H70.001 Acute mastoiditis without complications, right ear; Z87.891 Personal history of nicotine dependence; D64.9 Anemia, unspecified; F41.9 Anxiety disorder, unspecified; I13.0 Hypertensive heart and chronic kidney disease with heart failure and stage 1 through stage 4 chronic kidney disease, or unspecified chronic kidney disease; E11.22 Type 2 diabetes mellitus with diabetic chronic kidney disease; N18.3 Chronic kidney disease, stage 3 (moderate); I50.30 Unspecified diastolic (congestive) heart failure; Z79.84 Long term (current) use of oral hypoglycemic drugs; F32.9 Major depressive disorder, single episode, unspecified; E11.42 Type 2 diabetes mellitus with diabetic polyneuropathy; E78.5 Hyperlipidemia, unspecified; K21.9 Gastro-esophageal reflux disease without esophagitis; M19.90 Unspecified osteoarthritis, unspecified site; Z87.442 Personal history of urinary calculi; Z87.440 Personal history of urinary (tract) infections
CPT/HCPCS: 70480; 99284; A9270

== ENCOUNTER 2020-03-25 04:39 | Emergency (ER) | payer MEDICARE, SELFPAY ==
[2020-03-25 04:42] VITALS: BP 137/65; PULSE 120; RESP 18; TEMP 36.8; O2SAT 97
--- NOTE | 2020-03-25 04:52 | ED.EAR ---
HPI - Ear Problem General Chief complaint: Ear Stated complaint: EAR PAIN Time Seen by Provider: 03/25/20 04:42 Source: patient and family Mode of arrival: EMS History of Present Illness HPI Narrative: This patient is a 79 year old female who presents for evaluation of right ear pain. PAtient has been dealing with right ear pain and infection over 1 dinorah. She was evaluated by Dr. Phillips for right ear abscess in the beginning a March. Patient was then referred to [facility] for further treatment of her right ear infection. Her states on patient had an abscess drained in right ear at [facility]. She has been using cipro dex ear drops and she has been taking hydrocodone. PAtient has come to ER because she is having severe pain. Denies nausea, vomiting, fever or dizziness. MD Complaint: ear pain and ear discharge Related Data Home Medications Medication Instructions Recorded Confirmed amlodipine 5 mg tablet 0.5 mg PO DAILY 07/29/19 03/04/20 apixaban 5 mg tablet 10 mg PO BID 07/29/19 03/04/20 ezetimibe 10 mg tablet 10 mg PO HS 07/29/19 03/04/20 metoprolol succinate 50 mg 50 mg PO DAILY 07/29/19 03/04/20 tablet,extended release 24 hr allopurinol 300 mg PO HS 07/31/19 03/04/20 calcium carbonate [Calcium 600] 600 mg PO DAILY 07/31/19 03/04/20 ferrous gluconate 236 mg PO DAILY 07/31/19 03/04/20 glucosamine sulfate [Glucosamine] 500 mg PO BID 07/31/19 03/04/20 iron, carbonyl [Feosol] 45 mg PO DAILY 07/31/19 03/04/20 multivitamin 1 tablet PO BID 07/31/19 03/04/20 omega 8-inz-ocb-fish oil [Fish Oil] 1 cap PO BID 07/31/19 03/04/20 Bone Density Calcium + D 600 mg PO DAILY 12/29/19 03/04/20 PreserVision AREDS 1 tablet PO DAILY 12/29/19 03/04/20 cranberry extract 500 mg PO DAILY 12/29/19 03/04/20 d-mannose 500 ea PO TID 12/29/19 03/04/20 clindamycin HCl 300 mg PO 03/15/20 coQ10 (ubiquinol) PO 03/15/20 garlic 1,000 mg PO DAILY 03/15/20 [id number]-AV drp 03/15/20 Allergies Allergy/AdvReac Type Severity Reaction Status Date / Time amiodarone Allergy Unknown Unknown Verified 03/17/20 13:47 amoxicillin Allergy Unknown Unknown Verified 03/17/20 13:47 atorvastatin Allergy Unknown Unknown Verified 03/17/20 13:47 celecoxib Allergy Unknown Unknown Verified 03/17/20 13:47 clavulanic acid Allergy Unknown JOINT Verified 03/17/20 13:47 PAIN codeine Allergy Unknown Unknown Verified 03/17/20 13:47 levofloxacin Allergy Unknown Unknown Verified 03/17/20 13:47 lisinopril Allergy Unknown Unknown Verified 03/17/20 13:47 nitrofurantoin Allergy Unknown Diarrhea Verified 03/17/20 13:47 pitavastatin Allergy Unknown Unknown Verified 03/17/20 13:47 shellfish derived Allergy Unknown Unknown Verified 03/17/20 13:47 shrimp Allergy Unknown Unknown Verified 03/17/20 13:47 Xkmogpm-Abw-Puw Reductase Allergy Unknown unknown Verified 03/17/20 13:47 Inhibitor Sulfa (Sulfonamide Allergy Unknown Unknown Verified 03/17/20 13:47 Antibiotics) sulfamethizole Allergy Unknown stomtits Verified 03/17/20 13:47 sulfamethoxazole Allergy Unknown unknown Verified 03/17/20 13:47 trimethoprim Allergy Unknown Unknown Verified 03/17/20 13:47 zolpidem Allergy Unknown Unknown Verified 03/17/20 13:47 Shrimp Allergy Unknown SWELLING Uncoded 03/17/20 13:47 Review of Systems Review of Systems: All systems reviewed & are unremarkable except as noted in HPI and below Constitutional: Constitutional: Denies chills and Denies fever(s) ENT: Denies vertigo, Denies dizziness, Reports ear discharge and Reports otalgia Respiratory: Respiratory: Denies cough and Denies dyspnea Gastrointestinal: Gastrointestinal: Denies nausea and Denies vomiting PMFSH Past Medical History Medical History Anemia Anxiety CAD (coronary artery disease) With history of stents. CKD (chronic kidney disease), stage III Baseline creatinine ranges between 1.4 and 1.7. Depression Diabetic nephropathy associated with type 2 diab
[2020-03-25] MEDS: ONDANSETRON HCL ODT 4 MG TABLET PO (04:56)
--- NOTE | 2020-03-25 05:00 | PC.NURSE ---
pt incontinent of urine upon arrival. rasta care provided and full linen change. pt at bedside. pt medicated at this time, will continue to monitor pt for baseline status changes.
[2020-03-25 06:40] VITALS: BP 156/83; PULSE 80; RESP 18; TEMP 36.9; O2SAT 96
== END 2020-03-25 06:53 | disposition home or self-care (01) ==
PROVIDERS: Emergency Provider General Practice; PCP Family Medicine
DX: H60.501 Unspecified acute noninfective otitis externa, right ear (principal); Z87.891 Personal history of nicotine dependence; Z95.5 Presence of coronary angioplasty implant and graft; Z98.84 Bariatric surgery status; Z98.49 Cataract extraction status, unspecified eye; D64.9 Anemia, unspecified; I25.10 Atherosclerotic heart disease of native coronary artery without angina pectoris; E78.5 Hyperlipidemia, unspecified; Z86.718 Personal history of other venous thrombosis and embolism; E11.22 Type 2 diabetes mellitus with diabetic chronic kidney disease; I13.0 Hypertensive heart and chronic kidney disease with heart failure and stage 1 through stage 4 chronic kidney disease, or unspecified chronic kidney disease; N18.3 Chronic kidney disease, stage 3 (moderate); I50.30 Unspecified diastolic (congestive) heart failure; K21.9 Gastro-esophageal reflux disease without esophagitis; H40.9 Unspecified glaucoma; E03.9 Hypothyroidism, unspecified; K58.9 Irritable bowel syndrome, unspecified; M10.9 Gout, unspecified; Z87.442 Personal history of urinary calculi; Z86.14 Personal history of Methicillin resistant Staphylococcus aureus infection; M81.0 Age-related osteoporosis without current pathological fracture; M19.90 Unspecified osteoarthritis, unspecified site; N32.81 Overactive bladder; I48.0 Paroxysmal atrial fibrillation; Z79.01 Long term (current) use of anticoagulants; Z79.84 Long term (current) use of oral hypoglycemic drugs
CPT/HCPCS: 96372; 99283; A9270; J1170

== ENCOUNTER 2020-04-04 16:40 | Inpatient (IN) | payer MEDICARE, SELFPAY ==
--- NOTE | ~2020-04-04 | CT_ITS ---
EXAMINATION: CT abdomen pelvis wo con DATE: 04/08/2020 13:10 INDICATION: Bilateral kidney stones. TECHNIQUE: Computed tomography (CT) of the abdomen and pelvis was performed without intravenous contr ast. Automated exposure control and iterative reconstruction technique were employed. The dose-length product was 305.87 mGy-cm. COMPARISON: CT abdomen and pelvis 11/16/2017 FINDINGS: The visualized portions of the lung bases demonstrate small pleural effusions and mild depe ndent atelectasis. There is left atrial enlargement of the heart. There are coronary artery calcifica tions. No pericardial effusion. There are surgical changes of the stomach. There are widespread arter ial calcifications. The liver, gallbladder, spleen, pancreas, and left adrenal gland are normal. Ther e is a 3.8 cm mass in right adrenal gland measuring low-attenuation without change in size, consisten t with an adenoma. Right kidney is normal. There are three 2 mm stones in left kidney. There is gas i n the bladder lumen, likely from recent instrumentation. There are no dilated loops of bowel. There a re no pathologically enlarged lymph nodes. There is no free intraperitoneal fluid. There is severe th oracic spondylosis and moderate lumbar spondylosis. IMPRESSION: 1. Small nonobstructing left kidney stones. 2. Small pleural effusions. Reviewed, dictated and finalized at location A.
--- NOTE | ~2020-04-04 | CT_ITS ---
EXAMINATION: CT brain wo con DATE: 04/07/2020 10:05 INDICATION: Altered mental status. TECHNIQUE: Computed tomography (CT) of the head was performed without intravenous contrast. The mA wa s adjusted according to patient size. Iterative reconstruction technique was employed. The dose-lengt h product was 605.33 mGy-cm. COMPARISON: Head CT 02/10/2019 FINDINGS: There are scattered areas of low attenuation in the cerebral white matter. There is no intr acranial hemorrhage, acute infarction, or abnormal intracranial mass lesion. The ventricles are sam l in size. There are likely changes of ocular lens replacement surgeries. The paranasal sinuses are c lear. There is a small right mastoid effusion. There is thickening of the wall of right external harriett tory canal. IMPRESSION: 1. Extensive nonspecific cerebral white matter disease, which likely represents chronic small vessel ischemic disease. 2. Thickening of the wall of right external auditory canal, which may be cerumen or otitis externa. C orrelate with physical exam. Reviewed, dictated and finalized at location A. IMPRESSION: 1. Extensive nonspecific cerebral white matter disease, which likely represents chronic small vessel ischemic disease. 2. Thickening of the wall of right external auditory canal, which may be cerume n or otitis externa. Correlate with physical exam.
--- NOTE | ~2020-04-04 | MR_ITS ---
EXAMINATION: MR brain/brain stem wo con EXAM DATE: 04/08/2020 13:07 INDICATION: Persistent altered mental status. Atrial fibrillation. TECHNIQUE: Magnetic resonance imaging (MRI) of the brain/brain stem obtained without contrast. Sagitt al T1, axial diffusion, gradient echo (T2*), T1, T2, FLAIR sequences obtained. Correlation is made t o head CT from yesterday. FINDINGS: There are no areas of restricted diffusion to suggest acute infarction. There are 2 punctat e old right cerebellar infarctions. There is punctate old right thalamic hemosiderin deposit. No intr aparenchymal brain mass lesion. There is moderate periventricular and subcortical T2/FLAIR signal hyp erintensity, nonspecific but probably related to small vessel ischemic disease (microangiopathy). T here is mild prominence of the sulci and ventricles related to cerebral atrophy. There are no extra -axial collections. Flow voids are seen in the cerebral arteries on the T2-weighted sequences consis tent with their expected patency. The orbits are unremarkable. Soft tissue is unremarkable. IMPRESSION: 1. No acute intracranial findings. 2. Chronic age related findings. 3. Old right cerebellar, right thalamic infarctions. Reviewed, dictated and finalized at location A.
--- NOTE | ~2020-04-04 | XR_ITS ---
EXAMINATION: XR abdomen/kub 1V EXAM DATE: 04/08/2020 13:27 INDICATION: Acute kidney insufficiency, chronic urinary tract infection. TECHNIQUE: Frontal projection(s) of the abdomen for interpretation. Correlation is made to CT abdomen pelvis earlier same date. FINDINGS: There is large amount of bowel gas obscuring the renal contours. It is difficult to identi fy the left nephrolithiasis through this. Some bony degenerative changes. Extensive arteriosclerosis. Gastroesophageal junction surgical changes. There is no organomegaly. IMPRESSION: Cannot identify left nephrolithiasis. Reviewed, dictated and finalized at location A.
[2020-04-04 17:02] VITALS: BP 112/72; PULSE 72; RESP 16; TEMP 37.1; O2SAT 100
[2020-04-04] MEDS: SODIUM CHLORIDE 0.9% IV 500 ML 999 ML IV CONT (18:06)
[2020-04-04] MEDS: ERTAPENEM 1 GM/NS 50 ML 1 GM/50 ML BAG IVPB (18:06)
[2020-04-04 18:07] LABS: Basophils Absolute Auto 0.1 K/mm3 (0.0-0.1); Basophils Percent Auto 0.9 % (0.2-1.2); Eosinophils Absolute Auto 0.4 K/mm3 (0-0.3); Eosinophils Percent Auto 6.8 % (0-4.4); Hematocrit 36.1 % (37.0-47.0); Hemoglobin 10.9 g/dL (12.0-15.0); Immature Granulocyte Absolute 0.03 K/mm3 (0.00-0.031); Immature Granulocyte Percent A 0.5 % (0-0.5); Lymphocytes Absolute Auto 1.17 K/mm3 (0.9-3.2); Lymphocytes Percent Auto 18.2 % (18.3-44.2); Mean Corpuscular HGB Conc 30.2 g/dl (32-36); Mean Corpuscular Volume 99.4 fl (80-100); Monocytes Absolute Auto 0.4 K/mm3 (0.1-0.6); Monocytes Percent Auto 6.7 % (2.6-8.5); Neutrophils Absolute Auto 4.3 K/mm3 (1.3-6.7); Neutrophils Percent Auto 66.9 % (45.5-73.1); Platelet Count Result 288 k/mm3 (150-375); Red Blood Count 3.63 M/mm3 (4.2-5.4); White Blood Count 6.4 K/mm3 (4.5-10.0)
[2020-04-04 18:15] LABS: Add Urine Microscopic? YES; Appearance Urine Turbid (Clear); Bacteria Urine 4+ /hpf; Bilirubin Urine Negative (Negative); Blood Urine 3+ (Negative); Color Urine Red (Yellow); Glucose Urine UA Negative (Negative); Ketones Urine Negative (Negative); Leukocyte Esterase Ur 3+ LEU/UL (Negative); Mucus Urine Few /lpf; Nitrate Urine Positive (Negative); Protein Urine 2+ mg/dL (Negative); RBC Urine >75 /hpf (0-2); Specific Grav Ur 1.015 (1.001-1.035); Urobilinogen Urine Negative mg/dL (<2.0); WBC Urine >75 /hpf
[2020-04-04 18:19] LABS: Lactic Acid Reflex 0.8 mmol/L (0.7-2.1)
[2020-04-04 18:19] LABS: Alanine Aminotransferase 44 U/L (4-35); Albumin Level 3.6 g/dL (3.5-5.1); Alkaline Phosphatase 79 U/L (38-126); Anion Gap 12.2 mmol/L (7-16); Aspartate Amino Transferase 61 U/L (14-36); Bilirubin,Total 0.3 mg/dL (0.2-1.3); Blood Urea Nitrogen 42 mg/dL (7-17); Calcium 8.3 mg/dL (8.4-10.2); Carbon Dioxide 20 mmol/L (22-30); Chloride 110 mmol/L (98-107); Estimated CRCL calculation 18 ml/min; Estimated Glomerular Filt Rate 24; Glucose 86 mg/dL (65-105); Potassium 5.2 mmol/L (3.4-5.0); Sodium 137 mmol/L (137-145)
[2020-04-04 19:11] VITALS: BP 147/90; PULSE 87; O2SAT 95
--- NOTE | 2020-04-04 19:11 | ED.ABDPAIN ---
HPI - Abdominal Pain General Chief Complaint: Urogenital-Female Stated Complaint: UTI Time Seen by Provider: 04/04/20 17:30 Source: patient and family Mode of arrival: ambulatory Limitations: no limitations History of Present Illness HPI narrative: Patient is a 79-year-old female who presents per request of outside hospital where she was recently admitted after a near surgery for evaluation of positive urinary cultures is currently on ciprofloxacin and has been compliant with it patient was having symptoms what sounded like discolored urine in her hospital visit but has since noting she does not have any current dysuria hematuria or abdominal pain. Patient notes mild discomfort with her right ear that is unchanged since the surgery. Patient has had frequent urinary tract infection history . Patient denies fever chills nausea vomiting or URI symptoms Related Data Home Medications Medication Instructions Recorded Confirmed amlodipine 5 mg tablet 0.5 mg PO DAILY 07/29/19 03/04/20 apixaban 5 mg tablet 10 mg PO BID 07/29/19 03/04/20 ezetimibe 10 mg tablet 10 mg PO HS 07/29/19 03/04/20 metoprolol succinate 50 mg 50 mg PO DAILY 07/29/19 03/04/20 tablet,extended release 24 hr allopurinol 300 mg PO HS 07/31/19 03/04/20 calcium carbonate [Calcium 600] 600 mg PO DAILY 07/31/19 03/04/20 ferrous gluconate 236 mg PO DAILY 07/31/19 03/04/20 glucosamine sulfate [Glucosamine] 500 mg PO BID 07/31/19 03/04/20 iron, carbonyl [Feosol] 45 mg PO DAILY 07/31/19 03/04/20 multivitamin 1 tablet PO BID 07/31/19 03/04/20 omega 4-bwh-nmf-fish oil [Fish Oil] 1 cap PO BID 07/31/19 03/04/20 Bone Density Calcium + D 600 mg PO DAILY 12/29/19 03/04/20 PreserVision AREDS 1 tablet PO DAILY 12/29/19 03/04/20 cranberry extract 500 mg PO DAILY 12/29/19 03/04/20 d-mannose 500 ea PO TID 12/29/19 03/04/20 clindamycin HCl 300 mg PO 03/15/20 coQ10 (ubiquinol) PO 03/15/20 garlic 1,000 mg PO DAILY 03/15/20 [id number]-VU drp 03/15/20 Allergies Allergy/AdvReac Type Severity Reaction Status Date / Time amiodarone Allergy Unknown Unknown Verified 03/17/20 13:47 amoxicillin Allergy Unknown Unknown Verified 03/17/20 13:47 atorvastatin Allergy Unknown Unknown Verified 03/17/20 13:47 celecoxib Allergy Unknown Unknown Verified 03/17/20 13:47 clavulanic acid Allergy Unknown JOINT Verified 03/17/20 13:47 PAIN codeine Allergy Unknown Unknown Verified 03/17/20 13:47 levofloxacin Allergy Unknown Unknown Verified 03/17/20 13:47 lisinopril Allergy Unknown Unknown Verified 03/17/20 13:47 nitrofurantoin Allergy Unknown Diarrhea Verified 03/17/20 13:47 pitavastatin Allergy Unknown Unknown Verified 03/17/20 13:47 shellfish derived Allergy Unknown Unknown Verified 03/17/20 13:47 shrimp Allergy Unknown Unknown Verified 03/17/20 13:47 Pjtekis-Mno-Wmc Reductase Allergy Unknown unknown Verified 03/17/20 13:47 Inhibitor Sulfa (Sulfonamide Allergy Unknown Unknown Verified 03/17/20 13:47 Antibiotics) sulfamethizole Allergy Unknown stomtits Verified 03/17/20 13:47 sulfamethoxazole Allergy Unknown unknown Verified 03/17/20 13:47 trimethoprim Allergy Unknown Unknown Verified 03/17/20 13:47 zolpidem Allergy Unknown Unknown Verified 03/17/20 13:47 Shrimp Allergy Unknown SWELLING Uncoded 03/17/20 13:47 Review of Systems Review of Systems: All systems reviewed & are unremarkable except as noted in HPI and below PMFSH Past Medical History Medical History Anemia Anxiety CAD (coronary artery disease) With history of stents. CKD (chronic kidney disease), stage III Baseline creatinine ranges between 1.4 and 1.7. Depression Diabetic nephropathy associated with type 2 diabetes mellitus Diastolic heart failure Echocardiogram April 2017 demonstrated normal left ventricular systolic function, severe concentric left ventricular hypertrophy, pseudonormal diastolic dysfunction grade 2, ejection fraction 65%, severe left atrial enla
[2020-04-04 20:18] VITALS: BP 132/55; PULSE 94; RESP 20; O2SAT 95
[2020-04-04 21:35] VITALS: BP 143/81; PULSE 92; RESP 18; TEMP 36.3; O2SAT 100; BMI 27.3
[2020-04-04 21:40] VITALS: BMI 27.3
--- NOTE | 2020-04-04 22:15 | ADMGEN ---
This patient, Jessica Srinivasan, was admitted to [facility] Surg Room 315-01 at 2135. Patient/family oriented to hospital policies and general routines including ID bracelet, bed and alarms, visiting hours, pain management, procedures, bathroom and other care routines, personal items, smoking policy, room service/diet, and visiting hours. Valuables list has been completed. Information on how to activate the Rapid Response Team has been discussed. Patient/Family are encouraged to report perceived risks to care and to ask questions if they do not understand what they are told or what they should do.
[2020-04-04] MEDS: LACTATED RINGERS 1,000 ML 75 ML IV CONT (22:31)
[2020-04-04] MEDS: FAMOTIDINE 20 MG/2 ML VIAL IV PUSH (22:32)
[2020-04-05 06:00] VITALS: BP 153/74; PULSE 81; RESP 18; TEMP 36.6; O2SAT 97
[2020-04-05 06:43] LABS: Basophils Absolute Auto 0.1 K/mm3 (0.0-0.1); Eosinophils Absolute Auto 0.5 K/mm3 (0-0.3); Eosinophils Percent Auto 7.7 % (0-4.4); Hemoglobin 9.8 g/dL (12.0-15.0); Immature Granulocyte Absolute 0.01 K/mm3 (0.00-0.031); Immature Granulocyte Percent A 0.2 % (0-0.5); Lymphocytes Absolute Auto 1.27 K/mm3 (0.9-3.2); Lymphocytes Percent Auto 21.7 % (18.3-44.2); Mean Corpuscular HGB Conc 30.6 g/dl (32-36); Mean Corpuscular Volume 97.9 fl (80-100); Mean Platelet Volume 10.7 fl (7.4-10.4); Monocytes Absolute Auto 0.5 K/mm3 (0.1-0.6); Monocytes Percent Auto 7.7 % (2.6-8.5); Neutrophils Absolute Auto 3.6 K/mm3 (1.3-6.7); Neutrophils Percent Auto 61.7 % (45.5-73.1); Platelet Count Result 236 k/mm3 (150-375); Red Blood Count 3.27 M/mm3 (4.2-5.4); Red Cell Distribution Width 14.8 % (11.5-14.5); White Blood Count 5.9 K/mm3 (4.5-10.0)
[2020-04-05 06:57] LABS: Anion Gap 9.7 mmol/L (7-16); Blood Urea Nitrogen 36 mg/dL (7-17); Calcium 8.4 mg/dL (8.4-10.2); Carbon Dioxide 22 mmol/L (22-30); Chloride 110 mmol/L (98-107); Estimated CRCL calculation 20 ml/min; Estimated Glomerular Filt Rate 27; Glucose 80 mg/dL (65-105); Potassium 4.7 mmol/L (3.4-5.0); Sodium 137 mmol/L (137-145)
[2020-04-05] MEDS: FAMOTIDINE 20 MG/2 ML VIAL IV PUSH ×2 (08:17→21:08)
--- NOTE | 2020-04-05 09:35 | PM.IMHP ---
H&P: HPI History of Present Illness Chief complaint: urinary tract infection Narrative: Jessica Srinivasan is a 79 year old female who presented to the emergency room after being called and told by [facility] that she had a resistant UTI and needs IV antibiotics. The patient was just hospitalized and underwent an ear biopsy and had a UTI with a urine culture on March 31. Records are in the chart. She states she is not having any pain or burning but she is having some confusion which is usually her typical symptoms of UTIs. She has about 6 per year and used to see Dr. Marcum but got frustrated with that and has not followed up. She used to be on suppressive therapy but no longer is. She has lots of antibiotic allergies but she has never seen an motel operator to sort these out. She gets diarrhea on and off but has not had any in the last few days. She has never been diagnosed with C diff. She feels weak but that is been going on for a while and the UTI she thinks is making it worse. She denies nausea, vomiting, fevers, chills, chest pain, shortness of breath, rashes or wounds or back pain. Her ear is feeling better. she ate a big breakfast with no issues. Review of Systems Review of Systems: All systems reviewed & are unremarkable except as noted in HPI and below PMFSH Past Medical History Medical History (Updated 04/05/20 @ 10:51 by Raegan Pereira PA-C) Anemia Anxiety CAD (coronary artery disease) With history of stents. CKD (chronic kidney disease), stage III Baseline creatinine ranges between 1.4 and 1.7. Depression Diastolic heart failure Echocardiogram April 2017 demonstrated normal left ventricular systolic function, severe concentric left ventricular hypertrophy, pseudonormal diastolic dysfunction grade 2, ejection fraction 65%, severe left atrial enlargement with severe mitral valve calcifications, mild aortic regurgitation mild tricuspid regurgitation trivial regurgitation of pulmonic valve. DVT (deep venous thrombosis) Dyslipidemia Elevated liver enzymes Essential (primary) hypertension GERD (gastroesophageal reflux disease) GI bleed Glaucoma Gout Hallucinations Hiatal hernia HTN (hypertension) Hypothyroidism IBS (irritable bowel syndrome) Kidney calculus Kidney stones MRSA colonization Occlusion and stenosis of right carotid artery Osteoarthritis Osteoporosis Overactive bladder With chronic urinary incontinence Paroxysmal atrial fibrillation Pneumonia Posterior cerebral artery syndrome Unspecified macular degeneration UTI (urinary tract infection) With history of ESBL E coli. Surgical History Surgical History (Updated 04/05/20 @ 09:38 by Raegan Pereira PA-C) H/O section H/O gastric bypass H/O heart artery stent H/O lithotripsy History of cardiac catheterization History of cataract extraction S/P ear surgery [place] teeth extracted Family History Family History Father Acute myocardial infarction Patient's father is Hypertension Mother Patient's mother is Family history of thyroid disease Grandparent Diabetes mellitus Cerebrovascular accident Social History Social History (Updated 04/05/20 @ 10:52 by Raegan Pereira PA-C) Social History: Patient would like Her Andrea as her surrogate decision maker if needed. She smoked for couple years in high school but has not smoked since. She does not do drugs or drink alcohol. She is retired clerical worker. Years smoked: 7 Smoking status: Former smoker Tobacco type: cigarettes Second hand tobacco smoke exposure: Yes Smoking end date: 09/11/11 Alcohol intake: never Substance use: never Gender identity (if verbalized by the patient): Female Spiritual care concerns: No Agree to blood products: Yes Meds Home Medications and Allergies Home Medications Medication Instructions Recorded Confirmed Type amlo
[2020-04-05] MEDS: FLUoxetine HCL 20 MG CAPSULE 40 MG PO (10:37)
[2020-04-05] MEDS: APIXABAN 5 MG TABLET PO ×2 (10:37→17:46)
[2020-04-05] MEDS: ASPIRIN 81 MG CHEWABLE TABLET PO (10:37)
[2020-04-05] MEDS: amLODIPine BESYLATE 5 MG TABLET PO (10:38)
[2020-04-05] MEDS: FERROUS GLUCONATE 324 MG TABLET PO (10:38)
[2020-04-05] MEDS: FUROSEMIDE 20 MG TABLET PO (10:38)
[2020-04-05] MEDS: OPTI-GEN TAB 1 TABLET PO (10:38)
[2020-04-05 10:39] VITALS: PULSE 106
[2020-04-05] MEDS: METOPROLOL SUCCINATE EXT REL 50 MG TABCR PO (10:39)
[2020-04-05 14:00] VITALS: BP 125/93; PULSE 95; RESP 18; TEMP 36.7; O2SAT 99
--- NOTE | 2020-04-05 14:31 | PCPTNOTE ---
This patient has a h/o TKA surgery, and she remarks that as a result, knee is weak, and tends to buckle with standing/ambulatory surgery...her sometimes stands by at home when patient is ambulating...situation explained to nursing, and patient may ambulate with nursing staff...she is at her baseline and has been d/c'd from PT
[2020-04-05] MEDS: ERTAPENEM 1 GM/NS 50 ML 1 GM/50 ML BAG IVPB (17:47)
[2020-04-05] MEDS: PHARMACIST COMMUNICATION ORDER 1 EACH XX (18:03)
[2020-04-05] MEDS: PANTOPRAZOLE 40 MG TABLET PO (21:08)
[2020-04-05] MEDS: EZETIMIBE 10 MG TABLET PO (21:08)
[2020-04-05 21:44] VITALS: BP 145/54; PULSE 78; RESP 16; TEMP 36.9; O2SAT 99
[2020-04-06 06:00] VITALS: BP 140/71; PULSE 96; RESP 20; TEMP 36.6; O2SAT 98
[2020-04-06] MEDS: LEVOTHYROXINE SODIUM 75 MCG TABLET PO (06:10)
[2020-04-06 06:29] LABS: Hematocrit 30.3 % (37.0-47.0); Hemoglobin 9.5 g/dL (12.0-15.0); Mean Corpuscular HGB Conc 31.4 g/dl (32-36); Mean Corpuscular Volume 95.6 fl (80-100); Mean Platelet Volume 10.5 fl (7.4-10.4); Platelet Count Result 228 k/mm3 (150-375); Red Blood Count 3.17 M/mm3 (4.2-5.4); Red Cell Distribution Width 14.5 % (11.5-14.5); White Blood Count 6.6 K/mm3 (4.5-10.0)
[2020-04-06 07:04] LABS: Anion Gap 11.3 mmol/L (7-16); Blood Urea Nitrogen 34 mg/dL (7-17); Calcium 8.3 mg/dL (8.4-10.2); Carbon Dioxide 24 mmol/L (22-30); Chloride 106 mmol/L (98-107); Estimated CRCL calculation 20 ml/min; Estimated Glomerular Filt Rate 27; Glucose 77 mg/dL (65-105); Magnesium 1.9 mg/dL (1.6-2.3); Phosphorus 3.6 mg/dL (2.5-4.5); Potassium 4.3 mmol/L (3.4-5.0); Sodium 137 mmol/L (137-145)
[2020-04-06 08:00] VITALS: PULSE 96; RESP 20; O2SAT 98
[2020-04-06] MEDS: APIXABAN 5 MG TABLET PO (09:22)
[2020-04-06] MEDS: ASPIRIN 81 MG CHEWABLE TABLET PO (09:22)
[2020-04-06] MEDS: FUROSEMIDE 20 MG TABLET PO (09:22)
[2020-04-06] MEDS: METOPROLOL SUCCINATE EXT REL 50 MG TABCR PO (09:23)
[2020-04-06] MEDS: FERROUS GLUCONATE 324 MG TABLET PO (09:23)
[2020-04-06] MEDS: FLUoxetine HCL 20 MG CAPSULE 40 MG PO (09:23)
[2020-04-06] MEDS: OPTI-GEN TAB 1 TABLET PO (09:25)
[2020-04-06] MEDS: amLODIPine BESYLATE 5 MG TABLET PO (09:25)
[2020-04-06] MEDS: FAMOTIDINE 20 MG/2 ML VIAL IV PUSH ×2 (09:26→21:16)
--- NOTE | 2020-04-06 11:01 | PM.IMPN ---
Progress Note: A&P Assessment and Plan (1) Urinary tract infection: Code(s): N39.0 - Urinary tract infection, site not specified Status: Acute Assessment and Plan: ----- patient had a urine culture positive at [facility] on March 31 which grew resistant bacteria. They are both sensitive to meropenem so we will continue ertapenem. We have sent a UA at this time and are awaiting our urine culture. she is now having gross hematuria so catheter will be placed. It is likely that it is from her UTI. Her creatinine is stable. I suspect this will improve with treatment.patient has had about 6 UTIs any year and sees Dr. Marcum and was on some type of suppression therapy for while but that ended. She also has lots of allergies to medications but has never seen an test clerk. I suggested that she do this. The patient is feeling better, will monitor (2) Chronic atrial fibrillation: Code(s): I48.20 - Chronic atrial fibrillation, unspecified Status: Chronic Assessment and Plan: ----- patient has chronic atrial fibrillation and is currently rate controlled. Will continue metoprolol and Eliquis at this time. She currently does not have any chest pain. (3) CKD (chronic kidney disease), stage III: Code(s): N18.3 - Chronic kidney disease, stage 3 (moderate) Status: Acute Assessment and Plan: Creatinine is 1.8 today with a GFR of 27. This is chronic (4) Elevated liver enzymes: Code(s): R74.8 - Abnormal levels of other serum enzymes Status: Acute Assessment and Plan: ----- patient was seen by her primary care physician in january for this. She has a negative right upper quadrant ultrasound and a negative hepatitis panel. Unknown etiology. Her primary care plans to have her follow-up with GI outpatient. (5) HTN (hypertension): Code(s): I10 - Essential (primary) hypertension Status: Acute Assessment and Plan: ----- Last blood pressure 140/71. We will continue metoprolol, amlodipine, and Lasix. (6) Diastolic heart failure: Qualifiers: Heart failure chronicity: chronic Qualified Code(s): I50.32 - Chronic diastolic (congestive) heart failure Code(s): I50.30 - Unspecified diastolic (congestive) heart failure Status: Chronic Assessment and Plan: ----- Echo April 2017 showed severe concentric left hypertrophy with grade 2 diastolic dysfunction in the EF is 65%. She is currently euvolemic at this time. Monitor. Continue hypertensive medications and aspirin. (7) S/P ear surgery: Code(s): Z98.890 - Other specified postprocedural states Status: Acute Assessment and Plan: looks like she had a biopsy a [facility] and will follow-up with [facility] on April 10 for results. Continue home ear drops. is going to bring them in Time Spent With Patient Time with patient: 25 - 35 minutes Subjective Date/time seen: 04/06/20 11:01 Interval history: Pt is a 79-year-old female here for resistant UTI. Patient was seen today and states she feels okay. Her confusion and dysuria is better. Nursing staff states that she started to have red blood in her depends. Patient is unsure when that started. Pt denies nausea, vomiting, fevers, chills, constipation, diarrhea, chest pain, sob, or abdominal pain. She is eating and drinking well Review of Systems Review of Systems: All systems reviewed & are unremarkable except as noted in HPI and below Exam Narrative: Exam Narrative: General:Well developed well nourished patient HEENT: Normocephalic, atraumatic, PERRL, Sclerae anicteric, oral mucosa moist. outer portion of the right ear within normal limits , slight pain to palpation. Neck: Supple Resp: CTA Heart: irregularly irregular with no murmurs Abd: Soft, nontender. No pain to palpation. Positive bowel sounds Skin: Warm and dry Extremities: No swelling, erythema or pain to palpation
[2020-04-06 14:00] VITALS: BP 149/89; PULSE 66; RESP 16; TEMP 37; O2SAT 99
[2020-04-06] MEDS: ERTAPENEM 1 GM/NS 50 ML 1 GM/50 ML BAG IVPB (16:55)
--- NOTE | 2020-04-06 17:21 | PC.NURSE ---
Returned from OR per [BED ]. Report received from [RR.
[2020-04-06] MEDS: EZETIMIBE 10 MG TABLET PO (21:16)
[2020-04-06] MEDS: PANTOPRAZOLE 40 MG TABLET PO (21:16)
[2020-04-06 22:00] VITALS: BP 162/93; PULSE 98; RESP 16; TEMP 36.2; O2SAT 98
[2020-04-07] MEDS: LEVOTHYROXINE SODIUM 75 MCG TABLET PO (05:49)
[2020-04-07 06:00] VITALS: BP 155/92; PULSE 92; RESP 18; TEMP 37.1; O2SAT 99
[2020-04-07 06:15] LABS: Hematocrit 34.8 % (37.0-47.0); Hemoglobin 11.1 g/dL (12.0-15.0); Mean Corpuscular HGB Conc 31.9 g/dl (32-36); Mean Corpuscular Hemoglobin 30.4 pg (26-34); Mean Corpuscular Volume 95.3 fl (80-100); Mean Platelet Volume 10.7 fl (7.4-10.4); Platelet Count Result 245 k/mm3 (150-375); Red Blood Count 3.65 M/mm3 (4.2-5.4); Red Cell Distribution Width 14.3 % (11.5-14.5); White Blood Count 5.9 K/mm3 (4.5-10.0)
[2020-04-07 06:45] LABS: Alanine Aminotransferase 45 U/L (4-35); Albumin Level 3.5 g/dL (3.5-5.1); Alkaline Phosphatase 85 U/L (38-126); Anion Gap 9.3 mmol/L (7-16); Aspartate Amino Transferase 59 U/L (14-36); Bilirubin,Total 0.2 mg/dL (0.2-1.3); Blood Urea Nitrogen 28 mg/dL (7-17); CRP < 0.5 mg/dL (<1.0); Calcium 8.8 mg/dL (8.4-10.2); Carbon Dioxide 28 mmol/L (22-30); Chloride 105 mmol/L (98-107); Estimated CRCL calculation 22 ml/min; Estimated Glomerular Filt Rate 31; Glucose 86 mg/dL (65-105); Potassium 4.3 mmol/L (3.4-5.0); Sodium 138 mmol/L (137-145)
[2020-04-07] MEDS: FLUoxetine HCL 20 MG CAPSULE 40 MG PO (08:45)
[2020-04-07] MEDS: ASPIRIN 81 MG CHEWABLE TABLET PO (08:45)
[2020-04-07] MEDS: OPTI-GEN TAB 1 TABLET PO (08:45)
[2020-04-07] MEDS: amLODIPine BESYLATE 5 MG TABLET PO (08:45)
[2020-04-07] MEDS: METOPROLOL SUCCINATE EXT REL 50 MG TABCR PO (08:45)
[2020-04-07] MEDS: FUROSEMIDE 20 MG TABLET PO (08:45)
[2020-04-07] MEDS: FAMOTIDINE 20 MG/2 ML VIAL IV PUSH (08:46)
[2020-04-07 10:12] LABS: Lactic Acid Reflex 0.8 mmol/L (0.7-2.1)
[2020-04-07 10:31] LABS: Ammonia < 9 umol/L (9-30)
--- NOTE | 2020-04-07 13:41 | WPDINFPN2 ---
Progress Note: A&P Assessment and Plan (1) Asymptomatic bacteriuria: Code(s): R82.71 - Bacteriuria Status: Acute Assessment and Plan: Asymptomatic bacteriuria, CRI, chronic overactive bladder with incontinence, past kidney stones, multiple allergies REC Pull Coulter, stop antibiotic, observe for any symptoms specific for uti Subjective Date/time seen: 04/07/20 13:41 Objective Data Vital Signs Vital Signs: Vital Signs - 24 hr 04/06/20 14:00 04/06/20 22:00 04/07/20 06:00 Temperature 37.0 C 36.2 C L 37.1 C Pulse Rate 66 98 92 Respiratory Rate 16 16 18 Blood Pressure 149/89 H 162/93 H 155/92 H Pulse Oximetry 99 98 99 Intake/Output Intake/Output: Intake & Output 04/04/20 04/05/20 04/06/20 04/07/20 23:59 23:59 23:59 23:59 Intake Total 550 1570 850 340 Output Total 155 1000 1350 Balance 550 1415 -150 -1010 Meds/Results Medications: Active Medications Generic Name Dose Route Start Last Admin Trade Name Mikeq PRN Reason Stop Dose Admin Amlodipine Besylate 5 mg 04/05/20 09:00 04/07/20 08:45 Norvasc PO 5 mg DAILY ANURAG Administration Apixaban 5 mg 04/05/20 09:40 04/06/20 09:22 Eliquis PO 5 mg BID ANURAG Administration Aspirin 81 mg 04/05/20 09:00 04/07/20 08:45 Aspirin Chewable PO 81 mg DAILY ANURAG Administration Ezetimibe 10 mg 04/05/20 21:00 04/06/20 21:16 Zetia PO 10 mg HS ANURAG Administration Famotidine 20 mg 04/04/20 21:00 04/07/20 08:46 Pepcid Iv IV PUSH 20 mg Q12HR ANURAG Administration Ferrous Gluconate 324 mg 04/05/20 09:00 04/06/20 09:23 Ferrous Gluconate PO 324 mg DAILY ANURAG Administration Fluoxetine HCl 40 mg 04/05/20 09:00 04/07/20 08:45 Prozac PO 40 mg DAILY ANURAG Administration Furosemide 20 mg 04/05/20 09:00 04/07/20 08:45 Lasix Tablet PO 20 mg DAILY ANURAG Administration Ertapenem 1 gm in 50 mls @ 100 mls/hr 04/05/20 18:00 04/06/20 17:25 Invanz 1 Gm/Ns 50 Ml IVPB Infused Q24H ANURAG Infusion Levothyroxine Sodium 75 mcg 04/05/20 06:30 04/07/20 05:49 Synthroid PO 75 mcg DAILY@0630 ANURAG Administration Metoprolol Succinate 50 mg 04/05/20 09:00 04/07/20 08:45 Toprol Xl PO 50 mg DAILY ANURAG Administration Multivitamins/Minerals 1 tablet 04/05/20 09:00 04/07/20 08:45 Ocuvite PO 05/06/20 09:01 1 tablet DAILY ANURAG Administration Ondansetron HCl 4 mg 04/04/20 19:21 Zofran Inj IV PUSH Q4H PRN Nausea Pantoprazole Sodium 40 mg 04/05/20 21:00 04/06/20 21:16 Protonix PO 40 mg HS ANURAG Administration Radiology Results: ITS Impressions Head CT 04/07/20 10:08 IMPRESSION: 1. Extensive nonspecific cerebral white matter disease, which likely represents chronic small vessel ischemic disease. 2. Thickening of the wall of right external auditory canal, which may be cerumen or otitis externa. Correlate with physical exam. Labs Labs: Laboratory Results - last 24 hr 04/07/20 04/07/20 04/07/20 06:01 06:01 09:50 WBC 5.9 RBC 3.65 L Hgb 11.1 L Hct 34.8 L MCV 95.3 MCH 30.4 MCHC 31.9 L RDW 14.3 Plt Count 245 MPV 10.7 H Sodium 138 Potassium 4.3 Chloride 105 Carbon Dioxide 28 Anion Gap 9.3 BUN 28 H Creatinine 1.60 H Estim Creat Clear Calc 22 Estimated GFR 31 L Glucose 86 Lactic Acid 0.8 Calcium 8.8 Total Bilirubin 0.2 Direct Bilirubin 0.0 AST 59 H ALT 45 H Alkaline Phosphatase 85 Ammonia C-Reactive Protein < 0.5 Total Protein 6.0 L Albumin 3.5 TSH (Reflex) 04/07/20 04/07/20 09:50 09:50 WBC RBC Hgb Hct MCV MCH MCHC RDW Plt Count MPV Sodium Potassium Chloride Carbon Dioxide Anion Gap BUN Creatinine Estim Creat Clear Calc Estimated GFR Glucose Lactic Acid Calcium Total Bilirubin Direct Bilirubin AST ALT Alkaline Phosphatase Ammonia < 9 L C-Reac
--- NOTE | 2020-04-07 13:44 | PM.IMPN ---
Progress Note: A&P Assessment and Plan (1) Urinary tract infection: Code(s): N39.0 - Urinary tract infection, site not specified Status: Acute Assessment and Plan: ----- patient had a urine culture positive at [facility] on March 31 which grew resistant bacteria. They are both sensitive to meropenem so we will continue ertapenem. She was having hematuria, dysuria, and confusing which are getting better with treatment. We have sent a UA which confirms the UTI. Hematuria is better. Will restart anticoagulation and watch to see how her urine is. It is likely that it is from her UTI. Her creatinine is stable. I suspect this will improve with treatment.patient has had about 6 UTIs any year and sees Dr. Marcum and was on some type of suppression therapy for while but that ended. She also has lots of allergies to medications but has never seen an brazing machine setter. I suggested that she do this. (2) Chronic atrial fibrillation: Code(s): I48.20 - Chronic atrial fibrillation, unspecified Status: Chronic Assessment and Plan: ----- patient has chronic atrial fibrillation and is currently rate controlled. Will continue metoprolol and Eliquis tonight. She currently does not have any chest pain. (3) CKD (chronic kidney disease), stage III: Code(s): N18.3 - Chronic kidney disease, stage 3 (moderate) Status: Acute Assessment and Plan: Creatinine is 1.6. This is chronic (4) Elevated liver enzymes: Code(s): R74.8 - Abnormal levels of other serum enzymes Status: Acute Assessment and Plan: ----- patient was seen by her primary care physician in january for this. She has a negative right upper quadrant ultrasound and a negative hepatitis panel. Unknown etiology. Her primary care plans to have her follow-up with GI outpatient. (5) HTN (hypertension): Code(s): I10 - Essential (primary) hypertension Status: Acute Assessment and Plan: ----- Last blood pressure 155/92 before her home meds this AM. We will continue metoprolol, amlodipine, and Lasix. (6) Diastolic heart failure: Qualifiers: Heart failure chronicity: chronic Qualified Code(s): I50.32 - Chronic diastolic (congestive) heart failure Code(s): I50.30 - Unspecified diastolic (congestive) heart failure Status: Chronic Assessment and Plan: ----- Echo April 2017 showed severe concentric left hypertrophy with grade 2 diastolic dysfunction in the EF is 65%. She is currently euvolemic at this time. Monitor. Continue hypertensive medications and aspirin. (7) S/P ear surgery: Code(s): Z98.890 - Other specified postprocedural states Status: Acute Assessment and Plan: looks like she had a biopsy a [facility] which was positive for infection but no other pathology. She is to finish up her ear drops and f/u with them outpt. Subjective Date/time seen: 04/07/20 13:44 Interval history: Pt is a 79-year-old female here for resistant UTI. Patient was seen today after being told by the nursing staff that she was confused this morning. Patient's was in the room and states that patient was confused and is doing a little bit better but not at baseline. He says he has seen her worse than this but this is not how she normally is. She typically gets like this with a UTI. They both agree that her urine is looking better. Prior to admission it was dark, tea like with blood. She is eating and drinking well. No diarrhea, cp, sob, or fevers. Exam Narrative: Exam Narrative: General:Well developed well nourished patient resting in the chair in NAD HEENT: Normocephalic, atraumatic, PERRL, Sclerae anicteric, oral mucosa moist. outer portion of the right ear within normal limits , slight pain to palpation. Neck: Supple Resp: CTA Heart: irregularly irregular with no murmurs Abd: Soft, nontender. No pain to palpation. Positive bowel sounds S
[2020-04-07 14:00] VITALS: BP 159/89; PULSE 88; RESP 16; TEMP 36.4; O2SAT 100
--- NOTE | 2020-04-07 15:07 | CONS_ITS ---
DATE OF CONSULTATION: 04/07/2020 REASON FOR CONSULTATION: Abnormal UA. HISTORY OF PRESENT ILLNESS: The patient is a 79-year-old female who has had chronic overactive bladder and urinary incontinence. She has seen Dr. Marcum as well as Dr. Addison. In the past, she has had previous lithotripsy for staghorn calculus. Her renal ultrasound, September of 2018 showed a single nonobstructing calculus that was small. She also had findings of medical renal disease and in fact does have stage 3 chronic renal insufficiency. A Coulter catheter was placed here 2 days after admission, yesterday, otherwise no chronic catheter. Placement apparently was for I and O monitoring. She has had a known right otic mass and was admitted to an [facility] 4 days before admission. A urinalysis was obtained apparently as a preop investigation only. The operation was carried out on involving at least a biopsy and perhaps full excision. The mass was found to be nonmalignant and she was discharged from that hospital one-day before admission. The same hospital called her on the day of admission and are suggested that she go to the emergency room due to two organisms in her urine culture that were not predicted to respond to oral antibiotics. She did so. She has been on ertapenem. Consultation requested this morning. The patient herself had noted dark colored urine and has had gross hematuria in the past. She reports multiple urinary tract infections in the past at least one of which was manifested by urethral burning. However, she has currently no other symptoms of urine infection. She has been on no recent antibiotics and no fever, chills, sweats, CVA pain or flank pain. ALLERGIES: MULTIPLE, WHICH ARE REVIEWED. HABITS: She quit smoking 8 years ago. No alcohol. PRESENT MEDICATIONS: No immunosuppressants. PAST MEDICAL HISTORY: In addition to the above, cataract extractions, cardiac cath, coronary stents, gastric bypass, , macular degeneration, posterior cerebral artery defect, past pneumonia, PAF, osteoporosis, osteoarthritis, MRSA colonized, IBS, hypothyroidism, hypertension, hiatal hernia, gout, glaucoma, GI hemorrhage, GERD, hypertension, hyperlipidemia, DVT, diastolic heart failure, depression, anxiety, and anemia. REVIEW OF SYSTEMS: 14-point review otherwise negative. FAMILY HISTORY: Not pertinent to her present illness. SOCIAL HISTORY: She is , retired, lives locally. PHYSICAL EXAMINATION: GENERAL: This is an elderly female appears her actual age. VITAL SIGNS: She has been afebrile since arrival, 155/92, 92, 18, 99% room air. SKIN: No generalized rashes. Some ecchymoses consistent with phlebotomy and IV sticks. NODES: No cervical adenopathy. EENT: Pupils equal, round, and reactive to light. No conjunctival injection. Oropharynx, oral mucosa normal. NECK: No masses. No meningismus. LUNGS: Clear to auscultation and percussion. BACK: No CVAT. CARDIAC: Regular rate and rhythm. No murmurs or gallops. Pulses 1+. ABDOMEN: Nontender, soft. No organomegaly. Lower abdominal scar noted with abnormal contour. : Coulter catheter draining clear yellow urine, mildly dark in color. EXTREMITIES: Without clubbing, cyanosis, or edema. LABORATORY DATA: White blood cell count consistently normal. I reviewed her other labs. Urine culture in process. Blood cultures, no growth so far. RADIOLOGY: Previous ultrasound as above. ASSESSMENT: 1. Asymptomatic bacteria. I discussed with the patient that dark-colored urine is not a symptom in itself of urine infection. I think that she does not have a true urine infection, but I would like to have the Coulter catheter removed in order to further assess. 2. Chronic overactive bladder with urinary incont
[2020-04-07] MEDS: FERROUS GLUCONATE 324 MG TABLET PO (18:19)
[2020-04-07] MEDS: APIXABAN 5 MG TABLET PO (18:21)
[2020-04-07] MEDS: MELATONIN 5 MG TABLET PO (20:35)
[2020-04-07] MEDS: EZETIMIBE 10 MG TABLET PO (20:35)
[2020-04-07] MEDS: LORazepam 0.5 MG TABLET PO (20:35)
[2020-04-07] MEDS: PANTOPRAZOLE 40 MG TABLET PO (20:36)
[2020-04-07 22:00] VITALS: BP 145/54; PULSE 121; RESP 16; TEMP 36.2; O2SAT 99
[2020-04-08 06:00] VITALS: BP 144/74; PULSE 78; RESP 16; TEMP 36.6; O2SAT 99
[2020-04-08 06:14] LABS: Hematocrit 33.1 % (37.0-47.0); Hemoglobin 10.3 g/dL (12.0-15.0)
[2020-04-08] MEDS: LEVOTHYROXINE SODIUM 75 MCG TABLET PO (06:27)
[2020-04-08 06:42] LABS: Blood Urea Nitrogen 36 mg/dL (7-17); Calcium 8.5 mg/dL (8.4-10.2); Carbon Dioxide 28 mmol/L (22-30); Chloride 105 mmol/L (98-107); Estimated CRCL calculation 21 ml/min; Estimated Glomerular Filt Rate 29; Glucose 86 mg/dL (65-105); Sodium 138 mmol/L (137-145)
[2020-04-08] MEDS: APIXABAN 5 MG TABLET PO ×2 (09:51→17:08)
[2020-04-08] MEDS: OPTI-GEN TAB 1 TABLET PO (09:51)
[2020-04-08 09:52] VITALS: PULSE 78
[2020-04-08] MEDS: METOPROLOL SUCCINATE EXT REL 50 MG TABCR PO (09:52)
[2020-04-08] MEDS: amLODIPine BESYLATE 5 MG TABLET PO (09:52)
[2020-04-08] MEDS: FUROSEMIDE 20 MG TABLET PO (09:52)
[2020-04-08] MEDS: FLUoxetine HCL 20 MG CAPSULE 40 MG PO (09:52)
[2020-04-08] MEDS: FAMOTIDINE 20 MG TABLET PO ×2 (09:53→21:04)
[2020-04-08] MEDS: FERROUS GLUCONATE 324 MG TABLET PO (09:53)
[2020-04-08] MEDS: ASPIRIN 81 MG CHEWABLE TABLET PO (09:53)
--- NOTE | 2020-04-08 12:38 | WPDURCON ---
Assessment and Plan Assessment and plan (1) Acute kidney injury superimposed on chronic kidney disease: Code(s): N17.9 - Acute kidney failure, unspecified; N18.9 - Chronic kidney disease, unspecified Status: Acute Assessment and Plan: Will obtain a CT/KUB to rule out obstruction from known bilateral kidney stones. (2) Kidney calculus: Code(s): N20.0 - Calculus of kidney Status: Acute (3) UTI (urinary tract infection): Code(s): N39.0 - Urinary tract infection, site not specified Status: Acute Assessment and Plan: Continue Ertapenem, will ensure infection isn't from an obstructing stone. Patient is aware of stones but was not interested in a Litho to remove them as a source of infection. Cysto was negative in 04/28. This has been an ongoing issue for her for many years. She was recommended to treat her infections as they come along by Dr. Marcum d/t high resistance to antibioitcs and allergies to antibiotics. She also uses Estrace cream to prevent UTI's. Urology Consult Note HPI Date Seen: 04/08/20 Requesting Physician: Raegan Pereira PA-C Primary Care Provider: Fer Arambula MD Consult Narrative Narrative: Jessica Srinivasan is a 79 year old female who presented to the ER after recently being discharge from an outside hospital for re-evaluation of UTI. She has two strands of bacteria growing in her culture E-Coli and Klebsiella, both sensitive to Ertapenem which she continues to be on. She has a normal WBC, however he creatinine is slowly rising, and is now at 1.70. She is a patient of Dr. Marcum and myself and has been seen many times d/t chronic UTI's in the office. Most recently she was seen in 04/29 by me. She has had a negative cystoscopy in 04/28 and a BRANT in 2018 as well that showed bilateral renal stones that were non obstructive. She had decided to not pursue a lithotripsy for those stones, but was aware that they could be a source of recurrent infection. The patient is confused today and is not a good historian. All information came from the chart. Review of Systems Review of Systems: ROS unobtainable: Yes unobtainable due to mental status PMFSH Past Medical History Medical History Anemia Anxiety CAD (coronary artery disease) With history of stents. CKD (chronic kidney disease), stage III Baseline creatinine ranges between 1.4 and 1.7. Depression Diastolic heart failure Echocardiogram April 2017 demonstrated normal left ventricular systolic function, severe concentric left ventricular hypertrophy, pseudonormal diastolic dysfunction grade 2, ejection fraction 65%, severe left atrial enlargement with severe mitral valve calcifications, mild aortic regurgitation mild tricuspid regurgitation trivial regurgitation of pulmonic valve. DVT (deep venous thrombosis) Dyslipidemia Elevated liver enzymes Essential (primary) hypertension GERD (gastroesophageal reflux disease) GI bleed Glaucoma Gout Hallucinations Hiatal hernia HTN (hypertension) Hypothyroidism IBS (irritable bowel syndrome) Kidney calculus Kidney stones MRSA colonization Occlusion and stenosis of right carotid artery Osteoarthritis Osteoporosis Overactive bladder With chronic urinary incontinence Paroxysmal atrial fibrillation Pneumonia Posterior cerebral artery syndrome Unspecified macular degeneration UTI (urinary tract infection) With history of ESBL E coli. Surgical History Surgical History H/O section H/O gastric bypass H/O heart artery stent H/O lithotripsy History of cardiac catheterization History of cataract extraction S/P ear surgery [place] teeth extracted Family History Family History Father Acute myocardial infarction Patient's father is Hypertension Mother Patient's mother i
--- NOTE | 2020-04-08 12:49 | PC.NURSE ---
pt to MRI per stretcher.
[2020-04-08 14:00] VITALS: BP 140/71; PULSE 80; RESP 18; TEMP 36.8; O2SAT 100
--- NOTE | 2020-04-08 14:08 | PM.IMPN ---
Progress Note: A&P Assessment and Plan (1) Acute encephalopathy: Code(s): G93.40 - Encephalopathy, unspecified Status: Acute Assessment and Plan: ----- etiology unclear at this time. Initially thought to be due to UTI but the patient was not getting any better with treatment. TSH, ammonia, and electrolytes are within normal limits. Patient had a normal brain CT and MRI. There shows an old stroke but nothing acute. She has no signs of meningitis or other infection. Medications reviewed, I do not suspect medication induced confusion is the etiology at this time. There is a possibility that this is hospital delirium/lack of sleep. states she was not confused when she got the phone call by her doctor to come into the emergency room because she had a resistant UTI. The confusion did not start until being in the hospital. I have consulted Neurology and I recommend their recommendations. For completeness sake, I will order an ABG. Check b12 in AM. CRP normal with no fevers, bacteremia less likely. At this juncture, hospital psychosis may be the etiology. it also could be from the imipenem since that is only new medication she is taking. This was stopped late last night so we will see how she does without overnight. I have given her medications to help her sleep to see if that improves her mental status. (2) Urinary tract infection: Code(s): N39.0 - Urinary tract infection, site not specified Status: Acute Assessment and Plan: ----- patient had a urine culture positive at [facility] on March 31 which grew resistant bacteria. They are both sensitive to meropenem And she was started on that But that has been discontinued. See above (3) Chronic atrial fibrillation: Code(s): I48.20 - Chronic atrial fibrillation, unspecified Status: Chronic Assessment and Plan: ----- patient has chronic atrial fibrillation and is currently rate controlled. Will continue metoprolol and Eliquis tonight. She currently does not have any chest pain. (4) CKD (chronic kidney disease), stage III: Code(s): N18.3 - Chronic kidney disease, stage 3 (moderate) Status: Acute Assessment and Plan: Creatinine is 1.7. This is chronic (5) Elevated liver enzymes: Code(s): R74.8 - Abnormal levels of other serum enzymes Status: Acute Assessment and Plan: ----- patient was seen by her primary care physician in january for this. She has a negative right upper quadrant ultrasound and a negative hepatitis panel. Unknown etiology. Her primary care plans to have her follow-up with GI outpatient. (6) HTN (hypertension): Code(s): I10 - Essential (primary) hypertension Status: Acute Assessment and Plan: ----- Last blood pressure 144/74 before her home meds this AM. We will continue metoprolol, amlodipine, and Lasix. (7) Diastolic heart failure: Qualifiers: Heart failure chronicity: chronic Qualified Code(s): I50.32 - Chronic diastolic (congestive) heart failure Code(s): I50.30 - Unspecified diastolic (congestive) heart failure Status: Chronic Assessment and Plan: ----- Echo April 2017 showed severe concentric left hypertrophy with grade 2 diastolic dysfunction in the EF is 65%. She is currently euvolemic at this time. Monitor. Continue hypertensive medications and aspirin. (8) S/P ear surgery: Code(s): Z98.890 - Other specified postprocedural states Status: Acute Assessment and Plan: looks like she had a biopsy a [facility] which was positive for otitis externa but no other pathology. She is to finish up her ear drops and f/u with them outpt. Subjective Date/time seen: 04/08/20 14:08 Interval history: Pt is a 79-year-old female here altered mental status. Patient was seen today with at bedside. Patient is still confused and not at baseline. Although she can't ans
[2020-04-08 14:36] LABS: Alveolar/Arterial O2 Gradient 18.9 mmHg; Carboxyhemoglobin 0.4 % THb (0-2.0); Fractional Inspired Oxygen 21 %; HCO3 ABG 23.4 mEq/l (22.0-26.0); Methemoglobin ABG 0.3 %THb (0-1.5); Oxygen Saturation ABG 96.6 % (95.0-100.0); Oxyhemoglobin 94.9 % THb (90.0-100.0); PCO2 ABG 37.6 mmHg (35.0-45.0); PO2 ABG 85.8 mmHg (80.0-100.0); PO2 FiO2 Ratio Arterial Blood 4.09 %; Reduced Hemoglobin 4.4 %THb (0-5.0); Total Hemoglobin 11.9 g/dL (12.0-18.0); pH ABG 7.411 (7.350-7.450)
[2020-04-08 14:37] LABS: Device ROOM AIR; Modified Allen's Test Pass; Site Drawn RIGHT RADIAL
--- NOTE | 2020-04-08 14:51 | WPDNEURCNPN ---
Assessment and Plan Assessment and plan (1) Acute encephalopathy: Code(s): G93.40 - Encephalopathy, unspecified Status: Acute (2) Asymptomatic bacteriuria: Code(s): R82.71 - Bacteriuria Status: Acute (3) S/P ear surgery: Code(s): Z98.890 - Other specified postprocedural states Status: Acute (4) CKD (chronic kidney disease), stage III: Code(s): N18.3 - Chronic kidney disease, stage 3 (moderate) Status: Acute (5) Acute dehydration: Code(s): E86.0 - Dehydration Status: Acute (6) Atrial fibrillation: Code(s): I48.91 - Unspecified atrial fibrillation Status: Acute (7) Atherosclerotic heart disease of [place] coronary artery with other forms of angina pectoris: Code(s): I25.118 - Atherosclerotic heart disease of [place] coronary artery with other forms of angina pectoris Status: Acute (8) HTN (hypertension): Code(s): I10 - Essential (primary) hypertension Status: Acute (9) Weakness: Code(s): R53.1 - Weakness Status: Acute Additional Plan at this point we should continue observing her for any further changes in her mental status and left have follow-up at the [facility] for her ear problems I will be happy to follow her up tomorrow see how well she is doing Consult date: 04/08/20 Time Seen: 14:00 HPI: Jessica Srinivasan is a 79 year old female she is a right-handed and was admitted because of presumed urinary tract infection however the Infectious Disease felt it is bacteriuria rather than true urinary tract infection and the antibiotic has been stopped she has some confusional state since she has been in the hospital which seems like clearing it up and she gave me a relatively proper history about her issues with lesion in her ear but at times drifted off she denies any headache nausea vomiting chest pain shortness of breath fever chills or sore throat Patient's CT brain and the MRI is unremarkable as for as any new lesion is concerned The patient has follow-up appointment at [facility] for the results of the biopsy taken from her lesion in the right ear At the time of this examination the patient seems to me that if she did is have some confusional state is definitely getting better Is worth mentioning that the review of the records from [facility] reveals the woman does have an incidental finding of 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 CKD (chronic kidney disease), stage III Baseline creatinine ranges between 1.4 and 1.7. Depression Diastolic heart failure Echocardiogram April 2017 demonstrated normal left ventricular systolic function, severe concentric left ventricular hypertrophy, pseudonormal diastolic dysfunction grade 2, ejection fraction 65%, severe left atrial enlargement with severe mitral valve calcifications, mild aortic regurgitation mild tricuspid regurgitation trivial regurgitation of pulmonic valve. DVT (deep venous thrombosis) Dyslipidemia Elevated liver enzymes Essential (primary) hypertension GERD (gastroesophageal reflux disease) GI bleed Glaucoma Gout Hallucinations Hiatal hernia HTN (hypertension) Hypothyroidism IBS (irritable bowel syndrome) Kidney calculus Kidney stones MRSA colonization Occlusion and stenosis of right carotid artery Osteoarthritis Osteoporosis Overactive bladder With chronic urinary incontinence Paroxysmal atrial fibrillation Pneumonia Posterior cerebral artery syndrome Unspecified macular degeneration UTI (urinary tract infectio
--- NOTE | 2020-04-08 16:49 | WPDINFPN2 ---
Progress Note: A&P Assessment and Plan (1) Asymptomatic bacteriuria: Code(s): R82.71 - Bacteriuria Status: Acute Assessment and Plan: 1. Asymptomatic bacteriuria, 2 ESBL producerss, but with ongoing hematuria raising possibility of hemorrhagic infectious cystitis. CT shows air in bladder (perhaps from [place] yesterday), no wall thckening. 2. CRI 3. chronic overactive bladder with incontinence 4. kidney stones, more now than last imaging September last year 5. multiple allergies REC Given above possibilities, will resume antibiotic using imipenem 250 q8, 7 days Subjective Date/time seen: 04/08/20 16:49 Interval history: she notes subjective hematuria. + chronic incontinence. No dysuria no frequency. Feels like she cannot think quite straight, Dr. Mei has seen Exam Narrative: Exam Narrative: afebrile Const: General: no acute distress Neck: Neck: supple Resp: Effort & Inspection: normal respiratory effort Auscultation: clear to auscultation bilaterally Cardio: Rate: regular rate Rhythm: regular rhythm GI: Inspection: non-distended GI Palp: Yes Soft to palpation and No Tenderness to palpation present (GI) Skin: General skin exam: normal color and no rashes or lesions noted Objective Data Vital Signs Vital Signs: Vital Signs - 24 hr 04/07/20 22:00 04/08/20 06:00 04/08/20 09:52 Temperature 36.2 C L 36.6 C Pulse Rate 121 H 78 78 Respiratory Rate 16 16 Blood Pressure 145/54 H 144/74 H Pulse Oximetry 99 99 04/08/20 14:00 Temperature 36.8 C Pulse Rate 80 Respiratory Rate 18 Blood Pressure 140/71 Pulse Oximetry 100 Intake/Output Intake/Output: Intake & Output 04/05/20 04/06/20 04/07/20 04/08/20 23:59 23:59 23:59 23:59 Intake Total 1570 850 880 540 Output Total 155 1000 2150 Balance 1415 -150 -1270 540 Meds/Results Medications: Active Medications Generic Name Dose Route Start Last Admin Trade Name Freq PRN Reason Stop Dose Admin Amlodipine Besylate 5 mg 04/05/20 09:00 04/08/20 09:52 Norvasc PO 5 mg DAILY ANURAG Administration Apixaban 5 mg 04/05/20 09:40 04/08/20 09:51 Eliquis PO 5 mg BID ANURAG Administration Aspirin 81 mg 04/05/20 09:00 04/08/20 09:53 Aspirin Chewable PO 81 mg DAILY ANURAG Administration Ezetimibe 10 mg 04/05/20 21:00 04/07/20 20:35 Zetia PO 10 mg HS ANURAG Administration Famotidine 20 mg 04/07/20 21:00 04/08/20 09:53 Pepcid PO 20 mg Q12HR ANURAG Administration Ferrous Gluconate 324 mg 04/05/20 09:00 04/08/20 09:53 Ferrous Gluconate PO 324 mg DAILY ANURAG Administration Fluoxetine HCl 40 mg 04/05/20 09:00 04/08/20 09:52 Prozac PO 40 mg DAILY ANURAG Administration Furosemide 20 mg 04/05/20 09:00 04/08/20 09:52 Lasix Tablet PO 20 mg DAILY ANURAG Administration Levothyroxine Sodium 75 mcg 04/05/20 06:30 04/08/20 06:27 Synthroid PO 75 mcg DAILY@0630 ANURAG Administration Lorazepam 0.5 mg 04/07/20 19:41 04/07/20 20:35 Ativan Tablet PO 0.5 mg Q6H PRN Administration Anxiety Melatonin 5 mg 04/07/20 21:00 04/07/20 20:35 Melatonin PO 5 mg HS ANURAG Administration Metoprolol Succinate 50 mg 04/05/20 09:00 04/08/20 09:52 Toprol Xl PO 50 mg DAILY ANURAG Administration Multivitamins/Minerals 1 tablet 04/05/20 09:00 04/08/20 09:51 Ocuvite PO 05/06/20 09:01 1 tablet DAILY ANURAG Administration Ondansetron HCl 4 mg 04/07/20 19:39 Zofran Odt PO Q6H PRN Nausea And Vomiting Pantoprazole Sodium 40 mg 04/05/20 21:00 04/07/20 20:36 Protonix PO 40 mg HS ANURAG Administration Radiology Results: ITS Impressions Head CT 04/07/20 10:08 IMPRESSION: 1. Extensive nonspecific cerebral white matter disease, which likely represents chronic small vessel ischemic disease. 2. Thickening of the wall of right external auditory canal, which may be cerumen or otitis externa. Correlate with physical exam. Brain MRI 0
[2020-04-08] MEDS: IMIPENEM/CILASTATIN SODIUM 250 MG in DEXTROSE 5% 100 ML 300 MG IVPB (18:06)
[2020-04-08] MEDS: EZETIMIBE 10 MG TABLET PO (21:03)
[2020-04-08] MEDS: PANTOPRAZOLE 40 MG TABLET PO (21:04)
[2020-04-08] MEDS: MELATONIN 5 MG TABLET PO (21:04)
[2020-04-08] MEDS: LORazepam 0.5 MG TABLET PO (21:04)
[2020-04-08 22:00] VITALS: BP 133/65; PULSE 80; RESP 18; TEMP 36.5; O2SAT 99
[2020-04-09] MEDS: IMIPENEM/CILASTATIN SODIUM 250 MG in DEXTROSE 5% 100 ML 300 MG IVPB ×3 (00:07→18:27)
[2020-04-09 05:55] VITALS: BP 116/80; PULSE 87; RESP 18; TEMP 36.2; O2SAT 98
[2020-04-09] MEDS: LEVOTHYROXINE SODIUM 75 MCG TABLET PO (05:59)
[2020-04-09 06:15] LABS: Basophils Absolute Auto 0.1 K/mm3 (0.0-0.1); Basophils Percent Auto 0.9 % (0.2-1.2); Eosinophils Absolute Auto 0.3 K/mm3 (0-0.3); Eosinophils Percent Auto 5.5 % (0-4.4); Hematocrit 30.6 % (37.0-47.0); Hemoglobin 9.5 g/dL (12.0-15.0); Immature Granulocyte Absolute 0.03 K/mm3 (0.00-0.031); Immature Granulocyte Percent A 0.5 % (0-0.5); Lymphocytes Absolute Auto 1.25 K/mm3 (0.9-3.2); Lymphocytes Percent Auto 21.6 % (18.3-44.2); Mean Corpuscular Volume 96.5 fl (80-100); Mean Platelet Volume 11.1 fl (7.4-10.4); Monocytes Absolute Auto 0.4 K/mm3 (0.1-0.6); Monocytes Percent Auto 6.9 % (2.6-8.5); Neutrophils Absolute Auto 3.7 K/mm3 (1.3-6.7); Neutrophils Percent Auto 64.6 % (45.5-73.1); Platelet Count Result 231 k/mm3 (150-375); Red Blood Count 3.17 M/mm3 (4.2-5.4); Red Cell Distribution Width 14.4 % (11.5-14.5); White Blood Count 5.8 K/mm3 (4.5-10.0)
[2020-04-09 06:28] LABS: Alanine Aminotransferase 61 U/L (4-35); Albumin Level 3.1 g/dL (3.5-5.1); Alkaline Phosphatase 69 U/L (38-126); Anion Gap 10.1 mmol/L (7-16); Aspartate Amino Transferase 93 U/L (14-36); Bilirubin,Total 0.4 mg/dL (0.2-1.3); Blood Urea Nitrogen 42 mg/dL (7-17); Calcium 8.3 mg/dL (8.4-10.2); Carbon Dioxide 26 mmol/L (22-30); Chloride 103 mmol/L (98-107); Estimated CRCL calculation 22 ml/min; Estimated Glomerular Filt Rate 31; Glucose 85 mg/dL (65-105); Phosphorus 3.5 mg/dL (2.5-4.5); Potassium 4.1 mmol/L (3.4-5.0); Sodium 135 mmol/L (137-145)
[2020-04-09] MEDS: FAMOTIDINE 20 MG TABLET PO ×2 (09:50→21:06)
[2020-04-09] MEDS: APIXABAN 5 MG TABLET PO ×2 (09:50→18:32)
[2020-04-09] MEDS: FERROUS GLUCONATE 324 MG TABLET PO (09:50)
[2020-04-09] MEDS: amLODIPine BESYLATE 5 MG TABLET PO (09:50)
[2020-04-09] MEDS: FUROSEMIDE 20 MG TABLET PO (09:50)
[2020-04-09] MEDS: OPTI-GEN TAB 1 TABLET PO (09:50)
[2020-04-09 09:51] VITALS: PULSE 100
[2020-04-09] MEDS: ASPIRIN 81 MG CHEWABLE TABLET PO (09:51)
[2020-04-09] MEDS: METOPROLOL SUCCINATE EXT REL 50 MG TABCR PO (09:51)
[2020-04-09] MEDS: FLUoxetine HCL 20 MG CAPSULE 40 MG PO (09:51)
[2020-04-09 10:58] LABS: Folic Acid > 20.0 ng/mL (2.76->20)
--- NOTE | 2020-04-09 12:31 | PM.IMPN ---
Progress Note: A&P Assessment and Plan (1) Acute encephalopathy: Code(s): G93.40 - Encephalopathy, unspecified Status: Acute Assessment and Plan: Etiology unclear at this time. Initially thought to be due to UTI but the patient was not getting any better with treatment. TSH, ammonia, and electrolytes are within normal limits. Patient had a normal brain CT and MRI. There shows an old stroke but nothing acute. She has no signs of meningitis or other infection. states she was not confused when she got the phone call by her doctor to come into the emergency room because she had a resistant UTI. The confusion did not start until being in the hospital. Considerations include adverse medication reaction and hospital delirium/lack of sleep. Neurology is on board and input is appreciated. ABG was normal. Vitamin B12 is sufficient and CRP is also normal. Ammonia level was normal. At this juncture, hospital psychosis may be the etiology. Additional considerations include imipenem since that is only new medication she is taking. She did get some sleep overnight and her feels that her mental status is improving today. She is much less confused and is no longer anxious or tangential. Continue to monitor. (2) Urinary tract infection: Code(s): N39.0 - Urinary tract infection, site not specified Status: Acute Assessment and Plan: Urine culture was positive at [facility] on March 31 and grew resistant bacteria. They are both sensitive to meropenem. Meropenem was discontinued and imipenem was initiated. See above. (3) Chronic atrial fibrillation: Code(s): I48.20 - Chronic atrial fibrillation, unspecified Status: Chronic Assessment and Plan: Patient has chronic atrial fibrillation and is currently rate controlled. Continue metoprolol and Eliquis. She currently does not have any chest pain. (4) CKD (chronic kidney disease), stage III: Code(s): N18.3 - Chronic kidney disease, stage 3 (moderate) Status: Acute Assessment and Plan: Creatinine is 1.6 and BUN 42. This is chronic. Avoid nephrotoxins and renally dose medications. Continue to monitor. (5) Elevated liver enzymes: Code(s): R74.8 - Abnormal levels of other serum enzymes Status: Acute Assessment and Plan: She was seen by her primary care physician in January for this. She has a negative right upper quadrant ultrasound and a negative hepatitis panel. Unknown etiology. Her primary care plans to have her follow-up with GI outpatient. Continue to monitor. (6) HTN (hypertension): Code(s): I10 - Essential (primary) hypertension Status: Acute Assessment and Plan: Blood pressures were reviewed and are well-controlled. Continue metoprolol, amlodipine, and Lasix. (7) Diastolic heart failure: Qualifiers: Heart failure chronicity: chronic Qualified Code(s): I50.32 - Chronic diastolic (congestive) heart failure Code(s): I50.30 - Unspecified diastolic (congestive) heart failure Status: Chronic Assessment and Plan: Echo April 2017 showed severe concentric left hypertrophy with grade 2 diastolic dysfunction in the EF is 65%. She is currently euvolemic at this time. Monitor. Continue hypertensive medications and aspirin. (8) S/P ear surgery: Code(s): Z98.890 - Other specified postprocedural states Status: Acute Assessment and Plan: She had a biopsy at [facility] which was positive for otitis externa but no other pathology. She is to finish up her ear drops and f/u with them outpt. Follow-up with U as scheduled. Subjective Date/time seen: 04/09/20 12:31 Interval history: Mrs. Srinivasan is a 79 y.o. female who is seen in follow-up for altered mental status and drug-resistant UTI. Her is at the bedside and thinks that her mental status is improving. She exhibits mild confusion but he notes that she
--- NOTE | 2020-04-09 13:55 | WPDINFPN2 ---
Progress Note: A&P Assessment and Plan (1) Asymptomatic bacteriuria: Code(s): R82.71 - Bacteriuria Status: Acute Assessment and Plan: 1. Asymptomatic bacteriuria, 2 ESBL producerss, but with ongoing hematuria raising possibility of hemorrhagic infectious cystitis. CT shows air in bladder (perhaps from [place] yesterday), no wall thckening. 2. CRI 3. chronic overactive bladder with incontinence 4. kidney stones, more now than last imaging September last year 5. multiple allergies REC imipenem 250 q8, # 2 / 7 days. Ok discharge planning, though she is not inclined to go to any temporary SNF, due to coronavirus concern. DIscussed Subjective Date/time seen: 04/09/20 13:55 Interval history: less hematuria by her observation. No SP pain Exam Narrative: Exam Narrative: afebrile Const: General: no acute distress Resp: Effort & Inspection: normal respiratory effort Auscultation: clear to auscultation bilaterally Cardio: Rate: regular rate Rhythm: regular rhythm Heart sounds: no murmurs GI: Inspection: non-distended GI Palp: Yes Soft to palpation, No Tenderness to palpation present (GI) and No Guarding due to palpation present (GI) Objective Data Vital Signs Vital Signs: Vital Signs - 24 hr 04/08/20 14:00 04/08/20 22:00 04/09/20 05:55 Temperature 36.8 C 36.5 C 36.2 C L Pulse Rate 80 80 87 Respiratory Rate 18 18 18 Blood Pressure 140/71 133/65 116/80 Pulse Oximetry 100 99 98 04/09/20 09:51 Temperature Pulse Rate 100 Respiratory Rate Blood Pressure Pulse Oximetry Intake/Output Intake/Output: Intake & Output 04/06/20 04/07/20 04/08/20 04/09/20 23:59 23:59 23:59 23:59 Intake Total 348 243 4307 190 Output Total 1000 2150 Balance -150 -1270 1110 190 Meds/Results Medications: Active Medications Generic Name Dose Route Start Last Admin Trade Name Freq PRN Reason Stop Dose Admin Amlodipine Besylate 5 mg 04/05/20 09:00 04/09/20 09:50 Norvasc PO 5 mg DAILY ANURAG Administration Apixaban 5 mg 04/05/20 09:40 04/09/20 09:50 Eliquis PO 5 mg BID ANURAG Administration Aspirin 81 mg 04/05/20 09:00 04/09/20 09:51 Aspirin Chewable PO 81 mg DAILY ANURAG Administration Ezetimibe 10 mg 04/05/20 21:00 04/08/20 21:03 Zetia PO 10 mg HS ANURAG Administration Famotidine 20 mg 04/07/20 21:00 04/09/20 09:50 Pepcid PO 20 mg Q12HR ANURAG Administration Ferrous Gluconate 324 mg 04/05/20 09:00 04/09/20 09:50 Ferrous Gluconate PO 324 mg DAILY ANURAG Administration Fluoxetine HCl 40 mg 04/05/20 09:00 04/09/20 09:51 Prozac PO 40 mg DAILY ANURAG Administration Furosemide 20 mg 04/05/20 09:00 04/09/20 09:50 Lasix Tablet PO 20 mg DAILY ANURAG Administration Imipenem/Cilastatin Sodium 250 100 mls @ 300 mls/hr 04/08/20 17:00 04/09/20 09:54 mg/ Dextrose IVPB 04/15/20 17:01 300 mls/hr Q8H ANURAG Administration Levothyroxine Sodium 75 mcg 04/05/20 06:30 04/09/20 05:59 Synthroid PO 75 mcg DAILY@0630 ANURAG Administration Lorazepam 0.5 mg 04/07/20 19:41 04/08/20 21:04 Ativan Tablet PO 0.5 mg Q6H PRN Administration Anxiety Melatonin 5 mg 04/07/20 21:00 04/08/20 21:04 Melatonin PO 5 mg HS ANURAG Administration Metoprolol Succinate 50 mg 04/05/20 09:00 04/09/20 09:51 Toprol Xl PO 50 mg DAILY ANURAG Administration Multivitamins/Minerals 1 tablet 04/05/20 09:00 04/09/20 09:50 Ocuvite PO 05/06/20 09:01 1 tablet DAILY ANURAG Administration Ondansetron HCl 4 mg 04/07/20 19:39 Zofran Odt PO Q6H PRN Nausea And Vomiting Pantoprazole Sodium 40 mg 04/05/20 21:00 04/08/20 21:04 Protonix PO 40 mg HS ANURAG Administration Radiology Results: ITS Impressions Head CT 04/07/20 10:08 IMPRESSION: 1. Extensive nonspecific cerebral white matter disease, which likely represents chronic small vessel ischemic disease. 2. Thickening of the wall of right external au
[2020-04-09 14:00] VITALS: BP 98/61; PULSE 86; RESP 18; TEMP 36.9; O2SAT 98
[2020-04-09] MEDS: LORazepam 0.5 MG TABLET PO (18:31)
[2020-04-09 20:00] VITALS: PULSE 93; RESP 18; O2SAT 98
[2020-04-09] MEDS: EZETIMIBE 10 MG TABLET PO (21:06)
[2020-04-09] MEDS: MELATONIN 5 MG TABLET PO (21:06)
[2020-04-09] MEDS: PANTOPRAZOLE 40 MG TABLET PO (21:06)
[2020-04-09 22:00] VITALS: BP 114/71; PULSE 93; RESP 18; TEMP 36.4; O2SAT 98
[2020-04-10] MEDS: IMIPENEM/CILASTATIN SODIUM 250 MG in DEXTROSE 5% 100 ML 300 MG IVPB ×3 (00:30→17:19)
[2020-04-10] MEDS: LEVOTHYROXINE SODIUM 75 MCG TABLET PO (05:11)
[2020-04-10 06:00] VITALS: BP 120/75; PULSE 76; RESP 18; TEMP 36.4; O2SAT 99
[2020-04-10 06:19] LABS: Basophils Percent Auto 0.6 % (0.2-1.2); Eosinophils Absolute Auto 0.3 K/mm3 (0-0.3); Eosinophils Percent Auto 5.1 % (0-4.4); Hematocrit 31.6 % (37.0-47.0); Immature Granulocyte Absolute 0.01 K/mm3 (0.00-0.031); Immature Granulocyte Percent A 0.2 % (0-0.5); Lymphocytes Absolute Auto 1.35 K/mm3 (0.9-3.2); Lymphocytes Percent Auto 21.7 % (18.3-44.2); Mean Corpuscular HGB Conc 31.6 g/dl (32-36); Mean Corpuscular Hemoglobin 30.2 pg (26-34); Mean Corpuscular Volume 95.5 fl (80-100); Mean Platelet Volume 11.3 fl (7.4-10.4); Monocytes Absolute Auto 0.5 K/mm3 (0.1-0.6); Monocytes Percent Auto 7.9 % (2.6-8.5); Neutrophils Percent Auto 64.5 % (45.5-73.1); Platelet Count Result 223 k/mm3 (150-375); Red Blood Count 3.31 M/mm3 (4.2-5.4); Red Cell Distribution Width 14.2 % (11.5-14.5); White Blood Count 6.2 K/mm3 (4.5-10.0)
[2020-04-10 07:21] LABS: Alanine Aminotransferase 62 U/L (4-35); Albumin Level 3.2 g/dL (3.5-5.1); Alkaline Phosphatase 80 U/L (38-126); Anion Gap 9.4 mmol/L (7-16); Aspartate Amino Transferase 77 U/L (14-36); Bilirubin,Total 0.3 mg/dL (0.2-1.3); Blood Urea Nitrogen 47 mg/dL (7-17); Calcium 8.5 mg/dL (8.4-10.2); Carbon Dioxide 28 mmol/L (22-30); Chloride 103 mmol/L (98-107); Estimated CRCL calculation 20 ml/min; Estimated Glomerular Filt Rate 27; Glucose 82 mg/dL (65-105); Magnesium 2.1 mg/dL (1.6-2.3); Potassium 4.4 mmol/L (3.4-5.0); Sodium 136 mmol/L (137-145)
[2020-04-10] MEDS: FLUoxetine HCL 20 MG CAPSULE 40 MG PO (09:00)
[2020-04-10 09:46] VITALS: PULSE 92
[2020-04-10] MEDS: METOPROLOL SUCCINATE EXT REL 50 MG TABCR PO (09:46)
[2020-04-10] MEDS: APIXABAN 5 MG TABLET PO ×2 (09:47→17:22)
[2020-04-10] MEDS: FAMOTIDINE 20 MG TABLET PO ×2 (09:47→20:34)
[2020-04-10] MEDS: OPTI-GEN TAB 1 TABLET PO (09:47)
[2020-04-10] MEDS: amLODIPine BESYLATE 5 MG TABLET PO (09:47)
[2020-04-10] MEDS: ASPIRIN 81 MG CHEWABLE TABLET PO (09:47)
[2020-04-10] MEDS: FUROSEMIDE 20 MG TABLET PO (09:47)
[2020-04-10] MEDS: FERROUS GLUCONATE 324 MG TABLET PO (09:47)
[2020-04-10] MEDS: LIDOCAINE HCL 1% LOCAL INJ 2 ML AMPUL 5 ML INFILTRATE (13:45)
[2020-04-10 14:00] VITALS: BP 102/69; PULSE 87; RESP 18; TEMP 36.7; O2SAT 99
--- NOTE | 2020-04-10 16:03 | PM.IMPN ---
Progress Note: A&P Assessment and Plan (1) Acute encephalopathy: Code(s): G93.40 - Encephalopathy, unspecified Status: Acute Assessment and Plan: Etiology unclear at this time. Initially thought to be due to UTI and probably is. TSH, ammonia, and electrolytes are within normal limits. Patient had a normal brain CT and MRI. There shows an old stroke but nothing acute. . states she was not confused when she got the phone call by her doctor to come into the emergency room because she had a resistant UTI. The confusion did not start until being in the hospital. Considerations include adverse medication reaction and hospital delirium/lack of sleep. Neurology is on board and input is appreciated. ABG was normal. Vitamin B12 is sufficient and CRP is also normal. Ammonia level was normal. At this juncture, hospital psychosis may be the etiology. Additional considerations include imipenem since that is only new medication she is taking. She is much less confused and is no longer anxious or tangential and feels is at her baseline. . Continue to monitor. (2) Urinary tract infection: Code(s): N39.0 - Urinary tract infection, site not specified Status: Acute Assessment and Plan: Urine culture was positive at [facility] on March 31 and grew resistant bacteria. ESBL ecoli and klebsiella They are both sensitive to meropenem. Meropenem was discontinued and imipenem was initiated. See above. (3) Chronic atrial fibrillation: Code(s): I48.20 - Chronic atrial fibrillation, unspecified Status: Chronic Assessment and Plan: Patient has chronic atrial fibrillation and is currently rate controlled. Continue metoprolol and Eliquis. She currently does not have any chest pain. (4) CKD (chronic kidney disease), stage III: Code(s): N18.3 - Chronic kidney disease, stage 3 (moderate) Status: Acute Assessment and Plan: Creatinine is 1.8 and BUN 47. This is chronic. . Continue to monitor. (5) Elevated liver enzymes: Code(s): R74.8 - Abnormal levels of other serum enzymes Status: Acute Assessment and Plan: She was seen by her primary care physician in January for this. She has a negative right upper quadrant ultrasound and a negative hepatitis panel. Unknown etiology. Her primary care plans to have her follow-up with GI outpatient. Continue to monitor. (6) HTN (hypertension): Code(s): I10 - Essential (primary) hypertension Status: Acute Assessment and Plan: Blood pressures were reviewed and are well-controlled toward low side . Continue metoprolol, amlodipine, and Lasix. (7) Diastolic heart failure: Qualifiers: Heart failure chronicity: chronic Qualified Code(s): I50.32 - Chronic diastolic (congestive) heart failure Code(s): I50.30 - Unspecified diastolic (congestive) heart failure Status: Chronic Assessment and Plan: Echo April 2017 showed severe concentric left hypertrophy with grade 2 diastolic dysfunction in the EF is 65%. She is currently euvolemic at this time. Monitor. Continue hypertensive medications and aspirin. (8) S/P ear surgery: Code(s): Z98.890 - Other specified postprocedural states Status: Acute Assessment and Plan: She had a biopsy at [facility] which was positive for otitis externa but no other pathology. She is to finish up her ear drops and f/u with them outpt. Follow-up with [facility] as scheduled. Subjective Date/time seen: 04/10/20 16:03 Interval history: Date of visit. Mrs. Srinivasan is a 79 y.o. female who is seen in follow-up for altered mental status and drug-resistant UTI. Her is at the bedside and thinks that her mental status is about at her baseline . She exhibits mild confusion but apparently she is forgetfull and rarely knows day or date. . She reports chronic incontinence but denies hematuria, dysuria, and urgency. She
--- NOTE | 2020-04-10 16:08 | WPDNEUROPN ---
Progress Note: A&P Assessment and Plan (1) Acute encephalopathy: Code(s): G93.40 - Encephalopathy, unspecified Status: Acute (2) UTI (urinary tract infection): Code(s): N39.0 - Urinary tract infection, site not specified Status: Acute (3) S/P ear surgery: Code(s): Z98.890 - Other specified postprocedural states Status: Acute (4) CKD (chronic kidney disease), stage III: Code(s): N18.3 - Chronic kidney disease, stage 3 (moderate) Status: Acute (5) Atrial fibrillation: Code(s): I48.91 - Unspecified atrial fibrillation Status: Acute (6) Atherosclerotic heart disease of [place] coronary artery with other forms of angina pectoris: Code(s): I25.118 - Atherosclerotic heart disease of [place] coronary artery with other forms of angina pectoris Status: Acute (7) Weakness: Code(s): R53.1 - Weakness Status: Acute Additional Plan patient is being discharged to home with the IV antibiotic I believe she needs to be evaluated for slowly progressive dementia based on my evaluation however at this point it is difficult to discern the encephalopathic process her related to ongoing UTI which is being treated with IV antibiotics as per Infectious Disease Review of Systems Review of Systems: All systems reviewed & are unremarkable except as noted in HPI and below Exam Const: General: comfortable and no acute distress HENMT: General nose exam: Normal nares present Mouth: Yes moist mucous membranes Eyes: General: appearance normal, both eyes and all related structures Neck: Neck: supple and no JVD Resp: Effort & Inspection: normal respiratory effort Auscultation: clear to auscultation bilaterally Cardio: Rate: regular rate Rhythm: regular rhythm GI: Auscultation: normal bowel sounds Neuro: Other: patient is awake alert oriented x3 however does have cognitive deficit and drifts off from the conversation point she also has evidence of peripheral neuropathy and the knee joint arthritis which is complicating the factor for her ability to ambulate otherwise no lateralizing focal motor weakness is noted Extrem: Other: arthritic changes in the lower extremities particularly the knees Psych: Other: encephalopathy superimposed probably on underlying slowly coming on dementia Objective Data Vital Signs Vital Signs: Vital Signs - 24 hr 04/09/20 20:00 04/09/20 22:00 04/10/20 06:00 Temperature 36.4 C L 36.4 C L Pulse Rate 93 93 76 Respiratory Rate 18 18 18 Blood Pressure 114/71 120/75 Pulse Oximetry 98 98 99 04/10/20 09:46 04/10/20 14:00 Temperature 36.7 C Pulse Rate 92 87 Respiratory Rate 18 Blood Pressure 102/69 Pulse Oximetry 99 Intake/Output Intake/Output: Intake & Output 04/07/20 04/08/20 04/09/20 04/10/20 23:59 23:59 23:59 23:59 Intake Total 880 1110 1540 440 Output Total 2150 Balance -1270 1110 1540 440 Meds/Results Medications: Active Medications Generic Name Dose Route Start Last Admin Trade Name Freq PRN Reason Stop Dose Admin Amlodipine Besylate 5 mg 04/05/20 09:00 04/10/20 09:47 Norvasc PO 5 mg DAILY ANURAG Administration Apixaban 5 mg 04/05/20 09:40 04/10/20 09:47 Eliquis PO 5 mg BID ANURAG Administration Aspirin 81 mg 04/05/20 09:00 04/10/20 09:47 Aspirin Chewable PO 81 mg DAILY ANURAG Administration Ezetimibe 10 mg 04/05/20 21:00 04/09/20 21:06 Zetia PO 10 mg HS ANURAG Administration Famotidine 20 mg 04/07/20 21:00 04/10/20 09:47 Pepcid PO 20 mg Q12HR ANURAG Administration Ferrous Gluconate 324 mg 04/05/20 09:00 04/10/20 09:47 Ferrous Gluconate PO 324 mg DAILY ANURAG Administration Fluoxetine HCl 40 mg 04/05/20 09:00 04/09/20 09:51 Prozac PO 40 mg DAILY ANURAG Administration Furosemide 20 mg 04/05/20 09:00 04/10/20 09:47 Lasix Tablet PO 20 mg DAILY ANURAG Administration Imipenem/Cilastatin Sodium 250 100 mls @ 300 mls
[2020-04-10] MEDS: EZETIMIBE 10 MG TABLET PO (20:34)
[2020-04-10] MEDS: MELATONIN 5 MG TABLET PO (20:34)
[2020-04-10] MEDS: PANTOPRAZOLE 40 MG TABLET PO (20:34)
[2020-04-10] MEDS: SALINE LOCK FLUSH 10 ML IV PUSH (20:34)
[2020-04-10 22:00] VITALS: BP 106/61; PULSE 77; RESP 18; TEMP 37; O2SAT 98
[2020-04-11] MEDS: IMIPENEM/CILASTATIN SODIUM 250 MG in DEXTROSE 5% 100 ML 300 MG IVPB ×2 (01:26→08:52)
[2020-04-11 06:00] VITALS: BP 136/77; PULSE 86; RESP 18; TEMP 36.2; O2SAT 97
[2020-04-11] MEDS: LEVOTHYROXINE SODIUM 75 MCG TABLET PO (06:16)
[2020-04-11] MEDS: SALINE LOCK FLUSH 10 ML IV PUSH (06:17)
[2020-04-11 06:46] LABS: Blood Urea Nitrogen 44 mg/dL (7-17); Calcium 8.5 mg/dL (8.4-10.2); Carbon Dioxide 30 mmol/L (22-30); Chloride 100 mmol/L (98-107); Estimated CRCL calculation 19 ml/min; Estimated Glomerular Filt Rate 26; Glucose 91 mg/dL (65-105); Sodium 136 mmol/L (137-145)
[2020-04-11] MEDS: FLUoxetine HCL 20 MG CAPSULE 40 MG PO (08:47)
[2020-04-11] MEDS: FAMOTIDINE 20 MG TABLET PO (08:47)
[2020-04-11] MEDS: APIXABAN 5 MG TABLET PO (08:47)
[2020-04-11] MEDS: ASPIRIN 81 MG CHEWABLE TABLET PO (08:47)
[2020-04-11] MEDS: FUROSEMIDE 20 MG TABLET PO (08:48)
[2020-04-11] MEDS: amLODIPine BESYLATE 5 MG TABLET PO (08:48)
[2020-04-11 08:49] VITALS: PULSE 92
[2020-04-11] MEDS: OPTI-GEN TAB 1 TABLET PO (08:49)
[2020-04-11] MEDS: METOPROLOL SUCCINATE EXT REL 50 MG TABCR PO (08:49)
[2020-04-11] MEDS: FERROUS GLUCONATE 324 MG TABLET PO (11:00)
--- NOTE | 2020-04-11 17:24 | PM.DS ---
DS: Admitting Diagnosis Admitting Diagnosis Admitting Diagnosis: Urinary tract infection, site not specified DS: Discharge Diagnosis Discharge Diagnosis (1) Acute encephalopathy: Code(s): G93.40 - Encephalopathy, unspecified Status: Acute Assessment and Plan: Etiology unclear at this time. Initially thought to be due to UTI and probably is. TSH, ammonia, and electrolytes are within normal limits. Patient had a normal brain CT and MRI. There shows an old stroke but nothing acute. The confusion did not start until being in the hospital. Considerations include adverse medication reaction and hospital delirium/lack of sleep. Neurology is on board and feel as I do that the patient probably has ongoing dementia. ABG was normal. Vitamin B12 is sufficient and CRP is also normal. Ammonia level was normal. She is much less confused and is no longer anxious or tangential and feels is at her baseline. able to be discharged home (2) Urinary tract infection: Code(s): N39.0 - Urinary tract infection, site not specified Status: Acute Assessment and Plan: Urine culture was positive at [facility] on March 31 and grew resistant bacteria. ESBL ecoli and klebsiella They are both sensitive to meropenem. Meropenem was discontinued and imipenem was initiated. seen by ID who recommended full 7 day treatment. mid 9 IV was placed and she will continue 4 more days of antibiotic at home to complete the course (3) Chronic atrial fibrillation: Code(s): I48.20 - Chronic atrial fibrillation, unspecified Status: Chronic Assessment and Plan: Patient has chronic atrial fibrillation and is currently rate controlled. Continue metoprolol and Eliquis. She currently does not have any chest pain. (4) CKD (chronic kidney disease), stage III: Code(s): N18.3 - Chronic kidney disease, stage 3 (moderate) Status: Acute Assessment and Plan: Creatinine is 1.9 at discharge and will have BMP drawn in 1 week. (5) Elevated liver enzymes: Code(s): R74.8 - Abnormal levels of other serum enzymes Status: Acute Assessment and Plan: She was seen by her primary care physician in January for this. She has a negative right upper quadrant ultrasound and a negative hepatitis panel. Unknown etiology. Her primary care plans to have her follow-up with GI outpatient. Continue to monitor. (6) HTN (hypertension): Code(s): I10 - Essential (primary) hypertension Status: Acute Assessment and Plan: Blood pressures were reviewed and are well-controlled toward low side . Continue metoprolol, amlodipine, and Lasix. (7) Diastolic heart failure: Qualifiers: Heart failure chronicity: chronic Qualified Code(s): I50.32 - Chronic diastolic (congestive) heart failure Code(s): I50.30 - Unspecified diastolic (congestive) heart failure Status: Chronic Assessment and Plan: Echo April 2017 showed severe concentric left hypertrophy with grade 2 diastolic dysfunction in the EF is 65%. She is currently euvolemic at this time. Continue hypertensive medications and aspirin. (8) S/P ear surgery: Code(s): Z98.890 - Other specified postprocedural states Status: Acute Assessment and Plan: She had a biopsy at [facility] which was positive for otitis externa but no other pathology. She is to finish up her ear drops and f/u with them outpt. Follow-up with [facility] as scheduled. DS: Summary Hospital Course Hospital Course: 79-year-old hypertensive female with chronic renal failure stage 3 to 4 with recurrent urinary tract infections and recently cultured ESBL E coli and Klebsiella both sensitive to imipenem. No oral medication covered the pathogens and she was contacted to come to the emergency room and be admitted for treatment of the same. Here she was more confused and had an extensive workup for altered mental statu
== END 2020-04-11 11:35 | disposition home health service (06) | DRG 690 ==
LOC: ANHED 19:33 → ANH3MEDSUR 19:58
PROVIDERS: Emergency Medicine Emergency Medical Services; Internal Medicine; Physician Assistant; Admitting Provider Internal Medicine; Emergency Provider Emergency Medicine; PCP Family Medicine; Visit Provider Physician Assistant
DX: N39.0 Urinary tract infection, site not specified (principal); G93.49 Other encephalopathy; I50.32 Chronic diastolic (congestive) heart failure; I48.20 Chronic atrial fibrillation, unspecified; I13.0 Hypertensive heart and chronic kidney disease with heart failure and stage 1 through stage 4 chronic kidney disease, or unspecified chronic kidney disease; N17.9 Acute kidney failure, unspecified; B96.20 Unspecified Escherichia coli [E. coli] as the cause of diseases classified elsewhere; B96.1 Klebsiella pneumoniae [K. pneumoniae] as the cause of diseases classified elsewhere; E86.0 Dehydration; D64.9 Anemia, unspecified; I25.10 Atherosclerotic heart disease of native coronary artery without angina pectoris; I12.9 Hypertensive chronic kidney disease with stage 1 through stage 4 chronic kidney disease, or unspecified chronic kidney disease; E11.22 Type 2 diabetes mellitus with diabetic chronic kidney disease; N18.3 Chronic kidney disease, stage 3 (moderate); E11.42 Type 2 diabetes mellitus with diabetic polyneuropathy; K21.9 Gastro-esophageal reflux disease without esophagitis; H40.9 Unspecified glaucoma; K46.9 Unspecified abdominal hernia without obstruction or gangrene; M19.90 Unspecified osteoarthritis, unspecified site; M81.0 Age-related osteoporosis without current pathological fracture; R74.8 Abnormal levels of other serum enzymes; H35.30 Unspecified macular degeneration; R31.9 Hematuria, unspecified; N32.81 Overactive bladder; F03.90 Unspecified dementia, unspecified severity, without behavioral disturbance, psychotic disturbance, mood disturbance, and anxiety; R32 Unspecified urinary incontinence; K58.9 Irritable bowel syndrome, unspecified; F41.8 Other specified anxiety disorders; E78.5 Hyperlipidemia, unspecified; E03.9 Hypothyroidism, unspecified; M1A.9XX0 Chronic gout, unspecified, without tophus (tophi); Z98.890 Other specified postprocedural states; Z98.42 Cataract extraction status, left eye; Z98.41 Cataract extraction status, right eye; Z95.5 Presence of coronary angioplasty implant and graft; Z87.891 Personal history of nicotine dependence; Z86.718 Personal history of other venous thrombosis and embolism; Z98.84 Bariatric surgery status
CPT/HCPCS: 36415; 36569; 36600; 51701; 70450; 70551; 74018; 74176; 80048; 80053; 80076; 81001; 82140; 82375; 82607; 82746; 82805; 83050; 83605; 83735; 84100; 84443; 85014; 85018; 85025; 85027; 86140; 87040; 87077; 87086; 87088; 87186; 96365; 96366; 96367; 96375; 96376; 97110; 97161; 97165; 97530; 97535; 99285; A9270; C1751; G0378; J0131; J0743; J1335; J7040; J7120

== ENCOUNTER 2020-05-13 11:17 | Outpatient (CLI) | payer MEDICARE, SELFPAY ==
--- NOTE | ~2020-05-13 | DEXA_ITS ---
Bone Density Report Name: Jessica Srinivasan Age: 79 Sex: Female Ethnicity: White Date of : 1940 Indication: postmenopausal; height loss; Referring Provider: Sade Gomez Study: Bone densitometry was performed. Exam Date: May 13, 2020 Accession number: [id number] Bone Density: Region BMD T-score Z-score Classification AP Spine (L1-L4) 1.216 1.5 4.1 Normal Femoral Neck (Left) 0.695 -1.4 0.8 Osteopenia Total Hip (Left) 0.800 -1.2 0.8 Osteopenia Total Hip Bilateral Avg 0.764 -1.5 0.5 Osteopenia Femoral Neck (Right) 0.692 -1.4 0.8 Osteopenia Total Hip (Right) 0.727 -1.8 0.2 Osteopenia World Health Organization criteria for BMD impression classify patients as: Normal (T-score at or above -1.0), Osteopenia (T-score between -1.0 and -2.5), or Osteoporosis (T-score at or below -2.5). 10-year Fracture Risk(1): Major Osteoporotic Fracture 12% Hip Fracture 2.6% Reported Risk Factors: [place] (), Neck BMD=0.692, BMI=26.8 (1) FRAX(R) Version 3.08. Fracture probability calculated for an untreated patient. Fracture probability may be lower if the patient has received treatment. Previous Exams: Region Exam Age BMD T-score BMD Change BMD Change Date g/cm2 vs Baseline vs Previous AP Spine(L1-L4) 05/13/2020 79 1.216 1.5 -0.139(-10.3%) -0.049(-3.9%)* 08/04/2017 77 1.265 2.0 -0.090(-6.6%)# -0.175(-12.2%) 03/22/2012 71 1.440 3.6 0.085(6.3%)# 0.085(6.3%)# 02/20/2007 66 1.355 2.8 Total Hip(Left) 05/13/2020 79 0.800 -1.2 -0.329(-29.1%) -0.104(-11.5%) 08/04/2017 77 0.905 -0.3 -0.225(-19.9%) -0.222(-19.7%) 03/22/2012 71 1.127 1.5 -0.002(-0.2%)# -0.002(-0.2%)# 02/20/2007 66 1.130 1.5 Total Hip(Right) 05/13/2020 79 0.727 -1.8 -0.383(-34.5%) -0.185(-20.2%) 08/04/2017 77 0.912 -0.2 -0.198(-17.9%) -0.133(-12.7%) 03/22/2012 71 1.045 0.8 -0.065(-5.9%)# -0.065(-5.9%)# 02/20/2007 66 1.110 1.4 *Denotes significance at 95% confidence level, LSC for AP Spine = 0.022 g/cm2, LSC for Total Hip = 0.027 g/cm2 Clinical Information Provided by Patient: Has used the following medications: Vitamin D, Calcium Patient maximum height was 61.5 Menopause Age: 52 No regular weight bearing exercise Onset of menses at age 12 Number of children 1 Impression: The patient has low bone mass, based on the Right Total Hip T-score. The patient has an estimated ten-year risk of hip frac
--- NOTE | ~2020-05-13 | MM_ITS ---
EXAMINATION: MM screening [facility] BI w [facility] HISTORY: Screening TECHNIQUE: Craniocaudal and mediolateral oblique 3-D tomosynthesis images were obtained and synthetic 2-D images were generated. CAD analysis was submitted and interpreted. COMPARISON: Comparison to multiple prior studies sequentially, with oldest reviewed study dated 03/2014. BREAST PARENCHYMAL COMPOSITION: The breasts are heterogeneously dense, which may obscure small masses . FINDINGS: There are benign bilateral breast calcifications. There is no evidence of suspicious mass, calcification, or architectural distortion to suggest malignancy in either breast. There has been no suspicious interval change. IMPRESSION: 1. No mammographic evidence of malignancy. 2. Recommend routine screening mammography in one year. BI-RADS Category 2: Benign finding(s). Reviewed, dictated and finalized at location A.
== END 2020-05-13 11:18 | disposition home or self-care (01) ==
PROVIDERS: PCP Family Medicine; Visit Provider Student in an Organized Health Care Education/Training Program
DX: Z12.31 Encounter for screening mammogram for malignant neoplasm of breast (principal); Z78.0 Asymptomatic menopausal state; M85.89 Other specified disorders of bone density and structure, multiple sites
CPT/HCPCS: 77063; 77067; 77080

== ENCOUNTER 2020-07-31 07:44 | Outpatient (RCR) | payer MEDICARE, SELFPAY ==
[2020-07-31 07:55] VITALS: BP 108/56; PULSE 65; RESP 16; TEMP 36.2; O2SAT 97
--- NOTE | 2020-07-31 10:59 | PC.NURSE ---
0750 Patient to treatment room per w/c for Midline insertion and first dose of Ertapenem 500 mg IV. Patient alert and oriented x 4.
== END 2020-10-29 23:59 | disposition home or self-care (01) ==
LOC: ANHVASCINF 07:44
PROVIDERS: PCP Family Medicine; Visit Provider Internal Medicine Infectious Disease
DX: N39.0 Urinary tract infection, site not specified (principal)
CPT/HCPCS: 36569; 96365; C1751; J1335

== ENCOUNTER 2020-08-04 12:29 | Outpatient (NON) | payer MEDICARE, SELFPAY ==
[2020-08-04 13:29] LABS: Hemoglobin 11.6 g/dL (12.0-15.0); Mean Corpuscular HGB Conc 31.4 g/dl (32-36); Mean Corpuscular Hemoglobin 29.7 pg (26-34); Mean Corpuscular Volume 94.6 fl (80-100); Mean Platelet Volume 11.1 fl (7.4-10.4); Platelet Count Result 224 k/mm3 (150-375); Red Blood Count 3.91 M/mm3 (4.2-5.4); Red Cell Distribution Width 14.2 % (11.5-14.5)
[2020-08-04 13:46] LABS: Alanine Aminotransferase 110 U/L (4-35); Albumin Level 3.1 g/dL (3.5-5.1); Alkaline Phosphatase 92 U/L (38-126); Anion Gap 6 mmol/L (8-16); Aspartate Amino Transferase 97 U/L (14-36); Bilirubin,Total 0.1 mg/dL (0.2-1.3); Blood Urea Nitrogen 39 mg/dL (7-17); Calcium 8.4 mg/dL (8.4-10.2); Carbon Dioxide 21 mmol/L (22-30); Chloride 112 mmol/L (98-107); Estimated Glomerular Filt Rate 34; Glucose 115 mg/dL (65-105); Potassium 4.7 mmol/L (3.4-5.0); Sodium 139 mmol/L (137-145)
== END 2020-08-04 12:30 ==
PROVIDERS: PCP Family Medicine; Visit Provider Internal Medicine Infectious Disease
DX: Z45.2 Encounter for adjustment and management of vascular access device (principal); Z79.2 Long term (current) use of antibiotics; N39.0 Urinary tract infection, site not specified; I10 Essential (primary) hypertension
CPT/HCPCS: 80053; 85027

== ENCOUNTER 2020-08-10 10:36 | Observation (INO) | payer MEDICARE, SELFPAY ==
--- NOTE | ~2020-08-10 | XR_ITS ---
EXAMINATION: XR chest 1V portable DATE: 08/10/2020 11:26 INDICATION: Altered mental status. TECHNIQUE: A single frontal view of the chest was obtained. COMPARISON: Chest 2 views 07/31/2019, CT abdomen and pelvis 04/08/2020 FINDINGS: There are Bradford B-lines, consistent with mild pulmonary edema. No pleural effusion or pneu mothorax. Cardiomegaly is noted. There is an implanted electronic device in left anterior chest wall. IMPRESSION: 1. Mild pulmonary edema. 2. Cardiomegaly. Reviewed, dictated and finalized at location A. COVERER
--- NOTE | ~2020-08-10 | CT_ITS ---
EXAMINATION: CT brain wo con EXAM DATE: 08/10/2020 11:39 INDICATION: Altered mental status. TECHNIQUE: Spiral CT of the head was performed without contrast. Axial, coronal and sagittal images were reviewed. The dose-length product (DLP) for this examination was 605.33 mGy-cm. The exposure w as tailored according to patient size, and iterative reconstruction (ASIR) was used as additional dos e reduction technique. Comparison is made to prior examination from 04/07/2020. FINDINGS: There is no acute intraparenchymal hemorrhage. No evidence of intraparenchymal brain mass lesion. No evidence of acute infarction. Please note that initial head CT has limited sensitivity f or small or acute infarctions. There is moderate periventricular and subcortical hypodensity, nonspec ific but probably related to small vessel ischemic disease. There is mild prominence of the sulci a nd ventricles related to cerebral atrophy. There is intracranial carotid arteriosclerosis. There a re no extra-axial collections. There is no mass effect or midline shift. Patient has had bilateral ocular lens surgery. Soft tissue is unremarkable. The visualized sinuses and mastoid air cells are well aerated. IMPRESSION: 1. No acute intracranial findings. 2. Chronic age related findings. Reviewed, dictated and finalized at location A. OID ARCHITECT
--- NOTE | 2020-08-10 10:37 | ECG_ITS ---
Measurements Intervals Jay Em Rate: 94 P: OR: 0 QRS: -12 QRSD: 79 T: 23 QT: 348 QTc: 435 Interpretive Statements ATRIAL FIBRILLATION BORDERLINE R WAVE PROGRESSION, ANTERIOR LEADS BORDERLINE T WAVE ABNORMALITY- ANTEROLAT/INF LEADS BASELINE ARTIFACT- I, III, AVL, AVF ABNORMAL ECG Electronically Signed On 08-10-2020 10:46:06 ESTIMATION MANAGER by Devonte Miller D.O.
--- NOTE | 2020-08-10 10:43 | ED.AMS ---
HPI - Altered Mental Status General Chief Complaint: Altered Mental Status Stated Complaint: RECENT UTI History of Present Illness HPI narrative: 80-year-old female with history of recurrent urinary tract infection, chronic kidney disease, paroxysmal atrial fibrillation, coronary artery disease, hypertension presents to the emergency department for confusion. Just finished IV antibiotics for a UTI on Monday. Shortly after this she began complaining of dyuria followed by confusion. Per her daughter this is typical of her UTIs. History is limited by mental status change. Related Data Home Medications Medication Instructions Recorded Confirmed amlodipine 5 mg tablet 5 mg PO DAILY 07/29/19 08/10/20 apixaban 5 mg tablet 5 mg PO BID 07/29/19 08/10/20 ezetimibe 10 mg tablet 10 mg PO HS 07/29/19 08/10/20 metoprolol succinate 50 mg 50 mg PO DAILY 07/29/19 08/10/20 tablet,extended release 24 hr calcium carbonate [Calcium 600] 600 mg PO DAILY 07/31/19 08/10/20 glucosamine sulfate [Glucosamine] 500 mg PO BID 07/31/19 08/10/20 multivitamin 1 tablet PO BID 07/31/19 08/10/20 omega [id number]-tlf-fish oil [Fish Oil] 1 cap PO BID 07/31/19 08/10/20 Bone Density Calcium + D 600 mg PO DAILY 12/29/19 08/10/20 PreserVision AREDS 1 tablet PO DAILY 12/29/19 08/10/20 garlic 1,000 mg PO DAILY 03/15/20 08/10/20 aspirin 81 mg PO DAILY 04/04/20 08/10/20 ciprofloxacin-dexamethasone 5 drp RIGHTEAR BID 04/04/20 08/10/20 [Ciprodex] ferrous gluconate 324 mg PO DAILY 04/04/20 08/10/20 vitamin A-vit C-vit E-zinc-Cu 2 tablet PO BID 04/28/20 08/10/20 tablet lorazepam 0.5 mg PO PRN PRN 08/10/20 08/10/20 melatonin 10 mg PO HS PRN 08/10/20 08/10/20 Allergies Allergy/AdvReac Type Severity Reaction Status Date / Time amiodarone Allergy Unknown Unknown Verified 08/15/20 06:48 amoxicillin Allergy Unknown Unknown Verified 08/15/20 06:48 atorvastatin Allergy Unknown Unknown Verified 08/15/20 06:48 celecoxib Allergy Unknown Unknown Verified 08/15/20 06:48 clavulanic acid Allergy Unknown JOINT Verified 08/15/20 06:48 PAIN codeine Allergy Unknown Unknown Verified 08/15/20 06:48 Fish Containing Products Allergy Unknown Unknown Verified 08/15/20 06:48 levofloxacin Allergy Unknown Unknown Verified 08/15/20 06:48 lisinopril Allergy Unknown Unknown Verified 08/15/20 06:48 nitrofurantoin Allergy Unknown Diarrhea Verified 08/15/20 06:48 pitavastatin Allergy Unknown Unknown Verified 08/15/20 06:48 shellfish derived Allergy Unknown Unknown Verified 08/15/20 06:48 shrimp Allergy Unknown Unknown Verified 08/15/20 06:48 Obeijgn-Vjx-Gpq Reductase Allergy Unknown unknown Verified 08/15/20 06:48 Inhibitor Sulfa (Sulfonamide Allergy Unknown Unknown Verified 08/15/20 06:48 Antibiotics) sulfamethizole Allergy Unknown stomtits Verified 08/15/20 06:48 sulfamethoxazole Allergy Unknown unknown Verified 08/15/20 06:48 trimethoprim Allergy Unknown Unknown Verified 08/15/20 06:48 zolpidem Allergy Unknown Unknown Verified 08/15/20 06:48 Review of Systems Review of Systems: ROS unobtainable: Yes unobtainable due to mental status PMFSH Past Medical History Medical History Anxiety Chronic anemia Chronic atrial fibrillation Chronic kidney disease, stage 4 (severe) Baseline creatinine between 1.5 and 1.90. Coronary artery disease With history of stents. Depression Diastolic heart failure Echocardiogram April 2017 demonstrated normal left ventricular systolic function, severe concentric left ventricular hypertrophy, pseudonormal diastolic dysfunction grade 2, ejection fraction 65%, severe left atrial enlargement with severe mitral valve calcifications, mild aortic regurgitation mild tricuspid regurgitation trivial regurgitation of pulmonic valve. DVT (deep venous thrombosis) Dyslipidemia Elevated LFTs This is a chronic finding. Essential hypertension Gastroesophageal reflux disease GI bleed Glaucoma Gout Hiatal herni
[2020-08-10 10:45] VITALS: BP 144/76; PULSE 93; RESP 18; TEMP 36.6; O2SAT 93
[2020-08-10 11:06] LABS: Basophils Absolute Auto 0.1 K/mm3 (0.0-0.1); Basophils Percent Auto 0.8 % (0.2-1.2); Eosinophils Absolute Auto 0.4 K/mm3 (0-0.3); Eosinophils Percent Auto 5.4 % (0-4.4); Hematocrit 38.5 % (37.0-47.0); Hemoglobin 11.9 g/dL (12.0-15.0); Immature Granulocyte Absolute 0.02 K/mm3 (0.00-0.031); Immature Granulocyte Percent A 0.3 % (0-0.5); Lymphocytes Absolute Auto 1.18 K/mm3 (0.9-3.2); Lymphocytes Percent Auto 18.1 % (18.3-44.2); Mean Corpuscular HGB Conc 30.9 g/dl (32-36); Mean Corpuscular Hemoglobin 29.8 pg (26-34); Mean Corpuscular Volume 96.3 fl (80-100); Mean Platelet Volume 10.2 fl (7.4-10.4); Monocytes Absolute Auto 0.4 K/mm3 (0.1-0.6); Monocytes Percent Auto 6.3 % (2.6-8.5); Neutrophils Absolute Auto 4.5 K/mm3 (1.3-6.7); Neutrophils Percent Auto 69.1 % (45.5-73.1); Platelet Count Result 208 k/mm3 (150-375); Red Cell Distribution Width 13.9 % (11.5-14.5); White Blood Count 6.5 K/mm3 (4.5-10.0)
[2020-08-10 11:14] LABS: Alanine Aminotransferase 59 U/L (4-35); Albumin Level 3.3 g/dL (3.5-5.1); Alkaline Phosphatase 110 U/L (38-126); Anion Gap 5 mmol/L (8-16); Aspartate Amino Transferase 53 U/L (14-36); Bilirubin,Total 0.3 mg/dL (0.2-1.3); Blood Urea Nitrogen 32 mg/dL (7-17); Calcium 8.9 mg/dL (8.4-10.2); Carbon Dioxide 26 mmol/L (22-30); Chloride 109 mmol/L (98-107); Estimated CRCL calculation 24 ml/min; Estimated Glomerular Filt Rate 36; Glucose 82 mg/dL (65-105); Potassium 4.5 mmol/L (3.4-5.0); Sodium 140 mmol/L (137-145)
[2020-08-10] MEDS: SODIUM CHLORIDE 0.9% IV 500 ML 999 ML IV CONT (11:15)
[2020-08-10 13:20] LABS: Add Urine Microscopic? YES; Appearance Urine Cloudy (Clear); Bacteria Urine Trace /hpf; Bilirubin Urine Negative (Negative); Blood Urine 3+ (Negative); Color Urine Yellow (Yellow); Glucose Urine UA Negative (Negative); Ketones Urine Negative (Negative); Leukocyte Esterase Ur 3+ LEU/UL (Negative); Mucus Urine Rare /lpf; Nitrate Urine Negative (Negative); Protein Urine 1+ mg/dL (Negative); RBC Urine >75 /hpf (0-2); Specific Grav Ur 1.012 (1.001-1.035); Squamous Epithelial Cell Urine Many /hpf (Few); Urobilinogen Urine Negative mg/dL (<2.0); WBC Urine >75 /hpf
[2020-08-10 13:33] VITALS: BP 138/83; PULSE 86; RESP 20; O2SAT 95
[2020-08-10 14:01] VITALS: BP 155/80; PULSE 88; RESP 20; O2SAT 99
[2020-08-10] MEDS: ERTAPENEM 1 GM/NS 50 ML 1 GM/50 ML BAG IVPB (16:02)
--- NOTE | 2020-08-10 17:00 | PM.IMHP ---
H&P: HPI History of Present Illness Date/Time: 08/10/20 17:00 Chief complaint: uti Narrative: Jessica Srinivasan is a 80-year-old female with history of recurrent urinary tract infection, chronic kidney disease, paroxysmal atrial fibrillation, coronary artery disease, hypertension, and several other comorbidities who presented to the emergency department earlier this morning from home for evaluation of confusion. She is not able to provide me with much in the way of history given her confusion and as such a majority is following history is obtained via a review of her electronic medical records as well as discussions with her daughter who is at bedside, with the patient's permission. I have seen the patient previously and at that time I was concerned she may have underlying dementia however daughter assures me that the patient is very sharp and she has no evidence to suggest dementia when she is feeling well. In any event, she recently had a PICC line inserted and was receiving IV antibiotics as an outpatient for multidrug resistant Klebsiella pneumoniae urinary tract infection. In fact she finished her antibiotics on Monday, and within a day or so she once again began complaining of dysuria and she has been confused with hallucinations, such as speaking with that family members. Daughter also notes that she has chronic incontinence but has been worse than usual, reportedly. Urinalysis today is leukocyte esterase positive with multiple white blood cells and trace bacteria. She is afebrile however and has a normal white blood cell count. Aside from dysuria and confusion, the patient has no complaints. She specifically denies fever, chills, sweats, nausea, vomiting, and diarrhea. Her was diagnosed with COVID-19 just today and with further questioning the patient and her daughter deny that she has had symptoms of such, specifically denying headache, sinus congestion, otalgia, rhinorrhea, cough, shortness of breath, and diarrhea. Review of Systems Review of Systems: Narrative: Twelve systems were reviewed with pertinent positives and negatives as per HPI. Except as documented, all other systems were reviewed and are negative. [facility] Past Medical History Medical History (Updated 08/10/20 @ 23:20 by Angelina Pierson PA-C) Anxiety Chronic anemia Chronic atrial fibrillation Chronic kidney disease, stage 4 (severe) Baseline creatinine between 1.5 and 1.90. Coronary artery disease With history of stents. Depression Diastolic heart failure Echocardiogram April 2017 demonstrated normal left ventricular systolic function, severe concentric left ventricular hypertrophy, pseudonormal diastolic dysfunction grade 2, ejection fraction 65%, severe left atrial enlargement with severe mitral valve calcifications, mild aortic regurgitation mild tricuspid regurgitation trivial regurgitation of pulmonic valve. DVT (deep venous thrombosis) Dyslipidemia Elevated LFTs This is a chronic finding. Essential hypertension Gastroesophageal reflux disease GI bleed Glaucoma Gout Hiatal hernia Hypothyroidism Irritable bowel syndrome Kidney stones Lung nodule MRSA colonization Occlusion and stenosis of right carotid artery Osteoarthritis Osteoporosis Overactive bladder With chronic urinary incontinence Paroxysmal atrial fibrillation Pneumonia Posterior cerebral artery syndrome Unspecified macular degeneration Urinary incontinence Urinary tract infection With history of ESBL E coli and multidrug resistant Klebsiella pneumoniae urinary tract infections. Surgical History Surgical History (Updated 08/10/20 @ 23:17 by Angelina Pierson PA-C) History of cardiac catheterization History of cataract extraction History of section History of ear surgery History of gastric bypass History of heart artery stent History of lithotripsy [place] teeth extracted Family History Family History Father
[2020-08-10 17:05] VITALS: BP 138/78; PULSE 78; RESP 18; O2SAT 99
[2020-08-10 17:20] VITALS: BP 158/75; PULSE 78; PULSE 82; RESP 18; RESP 20; TEMP 36.3; O2SAT 97; O2SAT 99; BMI 23.8
--- NOTE | 2020-08-10 17:34 | PC.NURSE ---
This patient, Jessica Srinivasan, was admitted to [facility] Surg Room 325-01. Patient/family oriented to hospital policies and general routines including ID bracelet, bed and alarms, visiting hours, pain management, procedures, bathroom and other care routines, personal items, smoking policy, room service/diet, and visiting hours. Information on how to activate the Rapid Response Team has been discussed. Patient/Family are encouraged to report perceived risks to care and to ask questions if they do not understand what they are told or what they should do. PT ADMITTED AT 1720
[2020-08-10 20:00] VITALS: BP 146/69; PULSE 84; RESP 18; TEMP 36.4; O2SAT 99
[2020-08-10] MEDS: LACTATED RINGERS 1,000 ML 75 ML IV CONT (21:24)
[2020-08-11] VITALS: BP 141/86; PULSE 89; RESP 18; TEMP 36.7; O2SAT 98
[2020-08-11 01:02] LABS: SARS-CoV-2 RNA PCR Negative
[2020-08-11 04:00] VITALS: BP 149/75; PULSE 94; RESP 18; TEMP 36.8; O2SAT 96
[2020-08-11 06:35] LABS: Basophils Percent Auto 0.6 % (0.2-1.2); Eosinophils Absolute Auto 0.3 K/mm3 (0-0.3); Eosinophils Percent Auto 4.6 % (0-4.4); Hematocrit 38.2 % (37.0-47.0); Hemoglobin 11.8 g/dL (12.0-15.0); Immature Granulocyte Absolute 0.02 K/mm3 (0.00-0.031); Immature Granulocyte Percent A 0.3 % (0-0.5); Lymphocytes Absolute Auto 1.26 K/mm3 (0.9-3.2); Lymphocytes Percent Auto 18.5 % (18.3-44.2); Mean Corpuscular HGB Conc 30.9 g/dl (32-36); Mean Corpuscular Hemoglobin 28.9 pg (26-34); Mean Corpuscular Volume 93.4 fl (80-100); Mean Platelet Volume 10.4 fl (7.4-10.4); Monocytes Absolute Auto 0.5 K/mm3 (0.1-0.6); Monocytes Percent Auto 7.6 % (2.6-8.5); Neutrophils Absolute Auto 4.7 K/mm3 (1.3-6.7); Neutrophils Percent Auto 68.4 % (45.5-73.1); Platelet Count Result 203 k/mm3 (150-375); Red Blood Count 4.09 M/mm3 (4.2-5.4); Red Cell Distribution Width 13.7 % (11.5-14.5); White Blood Count 6.8 K/mm3 (4.5-10.0)
[2020-08-11] MEDS: LEVOTHYROXINE SODIUM 75 MCG TABLET PO (07:16)
[2020-08-11 07:32] LABS: Thyroid Stimulating Hormone Reflex 0.941 uIU/mL (0.465-4.68)
[2020-08-11 07:54] LABS: Alanine Aminotransferase 45 U/L (4-35); Albumin Level 3.1 g/dL (3.5-5.1); Alkaline Phosphatase 107 U/L (38-126); Anion Gap 6 mmol/L (8-16); Aspartate Amino Transferase 40 U/L (14-36); Bilirubin,Total 0.3 mg/dL (0.2-1.3); Blood Urea Nitrogen 29 mg/dL (7-17); Calcium 8.7 mg/dL (8.4-10.2); Carbon Dioxide 24 mmol/L (22-30); Chloride 111 mmol/L (98-107); Estimated CRCL calculation 25 ml/min; Estimated Glomerular Filt Rate 40; Glucose 79 mg/dL (65-105); Potassium 4.7 mmol/L (3.4-5.0); Sodium 141 mmol/L (137-145)
[2020-08-11 08:54] LABS: Folic Acid > 20.0 ng/mL (2.76->20)
[2020-08-11] MEDS: ASPIRIN 81 MG CHEWABLE TABLET PO (09:27)
[2020-08-11] MEDS: amLODIPine BESYLATE 5 MG TABLET PO (09:28)
[2020-08-11] MEDS: FLUoxetine HCL 20 MG CAPSULE 40 MG PO (09:28)
[2020-08-11] MEDS: APIXABAN 5 MG TABLET PO ×2 (09:28→21:13)
[2020-08-11] MEDS: FUROSEMIDE 20 MG TABLET PO (09:28)
[2020-08-11] MEDS: FERROUS GLUCONATE 324 MG TABLET PO (09:28)
[2020-08-11 09:29] VITALS: PULSE 94
[2020-08-11] MEDS: METOPROLOL SUCCINATE EXT REL 50 MG TABCR PO (09:29)
[2020-08-11] MEDS: OMEGA 3 POLYUNSAT FATTY ACIDS 1 GM CAP PO ×2 (09:29→18:11)
[2020-08-11] MEDS: MULTIVITAMINS THERAPEUTIC TAB (*BKC) 1 TABLET PO ×2 (09:29→18:11)
[2020-08-11] MEDS: OPTI-GEN TAB 1 TABLET PO (09:29)
[2020-08-11 14:00] VITALS: BP 131/90; PULSE 101; RESP 20; TEMP 36.9; O2SAT 98
--- NOTE | 2020-08-11 14:24 | PM.IMPN ---
Progress Note: A&P Assessment and Plan (1) Abnormal urinalysis: Code(s): R82.90 - Unspecified abnormal findings in urine Status: Acute Assessment and Plan: 08/11/20 14:24 Patient is 80-year-old female was brought to the emergency department with a confusion was not able to provide any review of systems or history, it was suspected the patient has a history of recurrent UTI and when she has a UTI patient presents with similar symptoms of confusion acute mental status change, patient was admitted in April with similar presentation patient had extensive workup the CT scan of the brain and MRI which were normal similarly vitamin B12 and CRP levels were normal, and that time she was found to have UTI with ESBL E coli and Klebsiella pneumonia patient was seen by ID and started on imipenem, currently urine is suspicious for UTI patient was started on ertapenem from the ER will continue, will follow-up on the urine culture and sensitivity and further recommendation to follow, patient will be seen by Dr. ramirez pending his opinion and further recommendation. today patient seems still confused unable to provide detailed review of symptom (2) Confusion: Code(s): R41.0 - Disorientation, unspecified Status: Acute Assessment and Plan: Plan is above (3) Chronic anemia: Code(s): D64.9 - Anemia, unspecified Status: Acute Assessment and Plan: Clinically stable (4) Chronic kidney disease, stage 4 (severe): Code(s): N18.4 - Chronic kidney disease, stage 4 (severe) Status: Inactive Assessment and Plan: Acute on chronic most likely dehydration patient is gently hydrated (5) Elevated LFTs: Code(s): R79.89 - Other specified abnormal findings of blood chemistry Status: Acute Assessment and Plan: Improving (6) Essential hypertension: Code(s): I10 - Essential (primary) hypertension Status: Inactive Assessment and Plan: Will continue home regimen and monitor (7) Paroxysmal atrial fibrillation: Code(s): I48.0 - Paroxysmal atrial fibrillation Status: Acute Assessment and Plan: Rate is controlled anticoagulated (8) Hypothyroidism: Code(s): E03.9 - Hypothyroidism, unspecified Status: Acute Assessment and Plan: Will continue home regimen (9) Diastolic heart failure: Qualifiers: Heart failure chronicity: chronic Qualified Code(s): I50.32 - Chronic diastolic (congestive) heart failure Code(s): I50.30 - Unspecified diastolic (congestive) heart failure Status: Chronic Assessment and Plan: Patient appears euvolemic (10) Elevated liver enzymes: Code(s): R74.8 - Abnormal levels of other serum enzymes Status: Acute Subjective Date/time seen: 08/11/20 14:24 Patient is 80-year-old female was brought to the emergency department with a confusion was not able to provide any review of systems or history, it was suspected the patient has a history of recurrent UTI and when she has a UTI patient presents with similar symptoms of confusion acute mental status change, patient was admitted in April with similar presentation patient had extensive workup the CT scan of the brain and MRI which were normal similarly vitamin B12 and CRP levels were normal, and that time she was found to have UTI with ESBL E coli and Klebsiella pneumonia patient was seen by ID and started on imipenem, currently urine is suspicious for UTI patient was started on ertapenem from the ER will continue, will follow-up on the urine culture and sensitivity and further recommendation to follow, patient will be seen by Dr. ramirez pending his opinion and further recommendation. today patient seems still confused unable to provide detailed review of symptom Review of Systems Review of Systems: ROS unobtainable: Yes unobtainable due to medical condition Exam Narrative: Exam Narrative: Patient is comfortable
[2020-08-11] MEDS: ERTAPENEM 1 GM/NS 50 ML 1 GM/50 ML BAG IVPB (18:07)
[2020-08-11] MEDS: EZETIMIBE 10 MG TABLET PO (21:13)
[2020-08-11] MEDS: PANTOPRAZOLE 40 MG TABLET PO (21:13)
[2020-08-11 22:00] VITALS: BP 139/62; PULSE 86; RESP 18; TEMP 36.2; O2SAT 99
[2020-08-12 04:12] VITALS: BP 146/86; PULSE 57; RESP 18; TEMP 36.1; O2SAT 99
[2020-08-12] MEDS: LEVOTHYROXINE SODIUM 75 MCG TABLET PO (06:03)
[2020-08-12 06:55] LABS: Basophils Absolute Auto 0.1 K/mm3 (0.0-0.1); Basophils Percent Auto 0.9 % (0.2-1.2); Eosinophils Absolute Auto 0.3 K/mm3 (0-0.3); Eosinophils Percent Auto 4.3 % (0-4.4); Hematocrit 41.4 % (37.0-47.0); Hemoglobin 12.9 g/dL (12.0-15.0); Immature Granulocyte Absolute 0.02 K/mm3 (0.00-0.031); Immature Granulocyte Percent A 0.3 % (0-0.5); Lymphocytes Percent Auto 19.3 % (18.3-44.2); Mean Corpuscular HGB Conc 31.2 g/dl (32-36); Mean Platelet Volume 10.8 fl (7.4-10.4); Monocytes Absolute Auto 0.5 K/mm3 (0.1-0.6); Monocytes Percent Auto 6.7 % (2.6-8.5); Neutrophils Absolute Auto 4.6 K/mm3 (1.3-6.7); Neutrophils Percent Auto 68.5 % (45.5-73.1); Platelet Count Result 229 k/mm3 (150-375); Red Blood Count 4.45 M/mm3 (4.2-5.4); Red Cell Distribution Width 13.3 % (11.5-14.5); White Blood Count 6.7 K/mm3 (4.5-10.0)
[2020-08-12 07:16] LABS: Alanine Aminotransferase 48 U/L (4-35); Albumin Level 3.5 g/dL (3.5-5.1); Alkaline Phosphatase 112 U/L (38-126); Anion Gap 6 mmol/L (8-16); Aspartate Amino Transferase 48 U/L (14-36); Bilirubin,Total 0.4 mg/dL (0.2-1.3); Blood Urea Nitrogen 34 mg/dL (7-17); Calcium 8.9 mg/dL (8.4-10.2); Carbon Dioxide 27 mmol/L (22-30); Chloride 105 mmol/L (98-107); Estimated CRCL calculation 24 ml/min; Estimated Glomerular Filt Rate 36; Glucose 86 mg/dL (65-105); Potassium 4.4 mmol/L (3.4-5.0); Sodium 138 mmol/L (137-145)
[2020-08-12 08:00] VITALS: PULSE 83; RESP 18; O2SAT 98
[2020-08-12] MEDS: MULTIVITAMINS THERAPEUTIC TAB (*BKC) 1 TABLET PO (08:57)
[2020-08-12] MEDS: ASPIRIN 81 MG CHEWABLE TABLET PO (08:57)
[2020-08-12] MEDS: OMEGA 3 POLYUNSAT FATTY ACIDS 1 GM CAP PO (08:57)
[2020-08-12 08:58] VITALS: PULSE 57
[2020-08-12] MEDS: amLODIPine BESYLATE 5 MG TABLET PO (08:58)
[2020-08-12] MEDS: APIXABAN 5 MG TABLET PO (08:58)
[2020-08-12] MEDS: FLUoxetine HCL 20 MG CAPSULE 40 MG PO (08:58)
[2020-08-12] MEDS: OPTI-GEN TAB 1 TABLET PO (08:58)
[2020-08-12] MEDS: FUROSEMIDE 20 MG TABLET PO (08:58)
[2020-08-12] MEDS: METOPROLOL SUCCINATE EXT REL 50 MG TABCR PO (08:58)
[2020-08-12] MEDS: FERROUS GLUCONATE 324 MG TABLET PO (08:59)
--- NOTE | 2020-08-12 13:00 | WPDINFPN2 ---
Progress Note: A&P Assessment and Plan (1) Confusion: Code(s): R41.0 - Disorientation, unspecified Status: Acute Assessment and Plan: 1. Confusion, I don't think due to UTI 2. Chronic bacteriuria 3. Chronic overactive bladder REC Ertapenem, adjust per culture. If you wish to continue therapy, 7 days appropriate. See my prior notes - and urology's - regarding public relations associate management. Call if other Qs Subjective Date/time seen: 08/12/20 13:00 Objective Data Vital Signs Vital Signs: Vital Signs - 24 hr 08/11/20 14:00 08/11/20 22:00 08/12/20 04:12 Temperature 36.9 C 36.2 C L 36.1 C L Pulse Rate 101 H 86 57 L Respiratory Rate 20 18 18 Blood Pressure 131/90 139/62 146/86 H Pulse Oximetry 98 99 99 08/12/20 08:58 Temperature Pulse Rate 57 L Respiratory Rate Blood Pressure Pulse Oximetry Intake/Output Intake/Output: Intake & Output 08/09/20 08/10/20 08/11/20 08/12/20 23:59 23:59 23:59 23:59 Intake Total 550 1760 480 Output Total 0 Balance 550 1760 480 Meds/Results Medications: Active Medications Generic Name Dose Route Start Last Admin Trade Name Mikeq PRN Reason Stop Dose Admin Amlodipine Besylate 5 mg 08/11/20 09:00 08/12/20 08:58 Amlodipine Besylate 5 Mg Tablet PO 5 mg DAILY ANURAG Administration Apixaban 5 mg 08/11/20 09:00 08/12/20 08:58 Apixaban 5 Mg Tablet PO 5 mg Q12HR ANURAG Administration Aspirin 81 mg 08/11/20 08:00 08/12/20 08:57 Aspirin 81 Mg Chewable Tablet PO 81 mg DAILY@0800 ANURAG Administration Calcium Carbonate 500 mg 08/11/20 09:00 08/12/20 08:57 Calcium/Vitamin D 500 Mg Tablet PO 500 mg QAM ANURAG Administration Ezetimibe 10 mg 08/11/20 21:00 08/11/20 21:13 Ezetimibe 10 Mg Tablet PO 10 mg HS ANURAG Administration Ferrous Gluconate 324 mg 08/11/20 08:00 08/12/20 08:59 Ferrous Gluconate 324 Mg Tablet PO 324 mg DAILY@0800 ANURAG Administration Fish Oil 1 gm 08/11/20 09:00 08/12/20 08:57 Faber 3 Polyunsat Fatty Acids 1 Gm Cap PO 1 gm BID ANURAG Administration Fluoxetine HCl 40 mg 08/11/20 09:00 08/12/20 08:58 Fluoxetine Hcl 20 Mg Capsule PO 40 mg DAILY ANURAG Administration Furosemide 20 mg 08/11/20 09:00 08/12/20 08:58 Furosemide 20 Mg Tablet PO 20 mg DAILY ANURAG Administration Ertapenem 1 gm in 50 mls @ 100 mls/hr 08/11/20 16:00 08/11/20 18:07 Invanz 1 Gm/Ns 50 Ml IVPB 100 mls/hr Q24H ANURAG Administration Levothyroxine Sodium 75 mcg 08/11/20 06:30 08/12/20 06:03 Levothyroxine Sodium 75 Mcg Tablet PO 75 mcg DAILY@0630 ANURAG Administration Melatonin 10 mg 08/10/20 23:30 Melatonin 5 Mg Tablet PO HS PRN Sleep Metoprolol Succinate 50 mg 08/11/20 09:00 08/12/20 08:58 Metoprolol Succinate Ext Rel 50 Mg Tabcr PO 50 mg DAILY ANURAG Administration Multivitamins Therapeutic 1 tablet 08/11/20 09:00 08/12/20 08:57 Multivitamins Therapeutic Tab (*Bkc) PO 1 tablet BID ANURAG Administration Multivitamins/Minerals 1 tablet 08/11/20 09:00 08/12/20 08:58 Opti-Gen Tab PO 1 tablet QAM ANURAG Administration Non-Formulary Medication 600 mg 08/11/20 09:00 Calcium Carbonate [Calcium 600] PO 09/10/20 09:01 DAILY [facility] Non-Formulary Medication 5 drop 08/11/20 09:00 Ciprofloxacin-Dexamethasone [Ciprodex] RIGHT EAR 09/10/20 09:01 BID [facility] Non-Formulary Medication 2 tablet 08/11/20 09:00 Vitamin A-Vit C-Vit E-Zinc-Cu PO 09/10/20 09:01 BID [facility] Pantoprazole Sodium 40 mg 08/11/20 21:00 08/11/20 21:13 Pantoprazole 40 Mg Tablet PO 40 mg HS ANURAG Administration Radiology Results: ITS Impressions Chest X-Ray 08/10/20 11:36 IMPRESSION: 1. Mild pulmonary edema. 2. Cardiomegaly. Head CT 08/10/20 11:41 IMPRESSION: 1. No acute intracranial findings. 2. Chronic age related findings. Labs Labs: Laboratory Results - last 24 hr 08/12/20 08/12/20 06:27 06:27 WBC 6.7
[2020-08-12 14:00] VITALS: BP 109/63; PULSE 83; RESP 18; TEMP 36.9; O2SAT 98
[2020-08-12] MEDS: ERTAPENEM 1 GM/NS 50 ML 1 GM/50 ML BAG IVPB (15:13)
--- NOTE | 2020-08-12 16:09 | PM.DS ---
DS: Admitting Diagnosis Admitting Diagnosis Admitting Diagnosis: uti DS: Discharge Diagnosis Discharge Diagnosis (1) Abnormal urinalysis: Code(s): R82.90 - Unspecified abnormal findings in urine Status: Acute Assessment and Plan: 08/11/20 14:24 Patient is 80-year-old female was brought to the emergency department with a confusion was not able to provide any review of systems or history, it was suspected the patient has a history of recurrent UTI and when she has a UTI patient presents with similar symptoms of confusion acute mental status change, patient was admitted in April with similar presentation patient had extensive workup the CT scan of the brain and MRI which were normal similarly vitamin B12 and CRP levels were normal, and that time she was found to have UTI with ESBL E coli and Klebsiella pneumonia patient was seen by ID and started on imipenem, currently urine is suspicious for UTI patient was started on ertapenem from the ER will continue, will follow-up on the urine culture and sensitivity and further recommendation to follow, patient will be seen by Dr. ramirez pending his opinion and further recommendation. today patient seems still confused unable to provide detailed review of symptom (2) Confusion: Code(s): R41.0 - Disorientation, unspecified Status: Acute Assessment and Plan: Plan is above (3) Chronic anemia: Code(s): D64.9 - Anemia, unspecified Status: Acute Assessment and Plan: Clinically stable (4) Chronic kidney disease, stage 4 (severe): Code(s): N18.4 - Chronic kidney disease, stage 4 (severe) Status: Inactive Assessment and Plan: Acute on chronic most likely dehydration patient is gently hydrated (5) Elevated LFTs: Code(s): R79.89 - Other specified abnormal findings of blood chemistry Status: Acute Assessment and Plan: Improving (6) Essential hypertension: Code(s): I10 - Essential (primary) hypertension Status: Inactive Assessment and Plan: Will continue home regimen and monitor (7) Paroxysmal atrial fibrillation: Code(s): I48.0 - Paroxysmal atrial fibrillation Status: Acute Assessment and Plan: Rate is controlled anticoagulated (8) Hypothyroidism: Code(s): E03.9 - Hypothyroidism, unspecified Status: Acute Assessment and Plan: Will continue home regimen (9) Diastolic heart failure: Qualifiers: Heart failure chronicity: chronic Qualified Code(s): I50.32 - Chronic diastolic (congestive) heart failure Code(s): I50.30 - Unspecified diastolic (congestive) heart failure Status: Chronic Assessment and Plan: Patient appears euvolemic (10) Elevated liver enzymes: Code(s): R74.8 - Abnormal levels of other serum enzymes Status: Acute DS: Summary Hospital Course Reason for hospitalization: Chief complaint: uti Narrative: Jessica Srinivasan is a 80-year-old female with history of recurrent urinary tract infection, chronic kidney disease, paroxysmal atrial fibrillation, coronary artery disease, hypertension, and several other comorbidities who presented to the emergency department earlier this morning from home for evaluation of confusion. She is not able to provide me with much in the way of history given her confusion and as such a majority is following history is obtained via a review of her electronic medical records as well as discussions with her daughter who is at bedside, with the patient's permission. I have seen the patient previously and at that time I was concerned she may have underlying dementia however daughter assures me that the patient is very sharp and she has no evidence to suggest dementia when she is feeling well. In any event, she recently had a PICC line inserted and was receiving IV antibiotics as an outpatient for multidrug resistant Klebsiella pneumoniae urinary tract infection. In fact she
--- NOTE | 2020-08-13 06:28 | CONS_ITS ---
DATE OF CONSULTATION: 08/12/2020 REASON FOR CONSULTATION: Bacteriuria. HISTORY OF PRESENT ILLNESS: This is a 80-year-old female with chronic overactive bladder. She has had past urinary tract infections. Also has chronic bacteriuria. I saw her in the office at the request of her primary care physician, Dr. Arambula, approximately 3 to 4 weeks ago and she had her usual symptoms of overactive bladder. After I discussed pros and cons with the patient and her in the office, I gave her 7 days of imipenem, which she completed about 9 days before admission. When I saw her in the office, she was not confused. She had a recent fall sustaining blunt pressure injuries to both knees and presented to the emergency room on August 10 with pain in her knees. Daughter also reported hallucinations. Her unfortunately has had coronavirus infection though he is recuperating at home reportedly. No fever, chills, or sweats. She denies abdominal pain. Here, she has been given ertapenem. ALLERGIES: MULTIPLE INCLUDING MULTIPLE ANTIBIOTICS. PRESENT MEDICATIONS: Ertapenem. No immunosuppressants. She is on multiple home medications as well. HABITS: No tobacco. No alcohol. PAST MEDICAL HISTORY: As detailed in her chart with no updates in the last 4 weeks. REVIEW OF SYSTEMS: Somewhat limited by the patient's memory. Otherwise, 14-point review is negative. FAMILY HISTORY: Not pertinent to her present illness. SOCIAL HISTORY: , retired, lives locally. PHYSICAL EXAMINATION: GENERAL: This is an elderly female who appears her actual age. Decreased short term memory. VITAL SIGNS: Afebrile, 146/86, 57, 18, 99%. SKIN: Warm and dry. No rashes. EENT: The conjunctivae are normal. Pupils equal, round. The oral mucosa is well hydrated. NECK: No masses, thyromegaly, tenderness, or meningismus. LUNGS: Clear to auscultation and percussion. CARDIAC: Regular rate and rhythm. No murmur, gallop, rub. ABDOMEN: Soft, nontender. No masses. No organomegaly. EXTREMITIES: Without clubbing, cyanosis, or edema. BACK: She has no CVAT. LABORATORY DATA: Urine culture in process. Urine from July 16 had an ESBL producing Klebsiella pneumoniae, similar to previous results. White count is 6.7, hemoglobin 12.9, platelets are 229. Differential is normal. BUN 34, creatinine 1.4. Transaminases twice normal, similar to prior. Albumin 3.5. Urine yellow, cloudy, 6.0, 1.012, 1+ protein, 3+ blood, 3+ leukocyte esterase, greater than 75 white and red cells, trace bacteria. Coronavirus assay nonreactive. RADIOLOGY: Previous brain MRI showed strokes and senescent changes. CT of the brain, same, and her current chest x-ray, cardiomegaly, pulmonary edema. ASSESSMENT: 1. Confusion. I do not think this is related to urinary tract infection. Instead, this could be metabolic, drug, vascular or related to a primary degenerative brain disorder such as Alzheimer's. 2. Multiple antibiotic allergies. 3. Bacteriuria. 4. Overactive bladder. 5. Chronic renal insufficiency stage IV. 6. Prior strokes and cerebrovascular disease. RECOMMENDATIONS: 1. If you choose to treat, ertapenem is appropriate for 7-day course, modified by her culture results. 2. No change in recommendations from myself and Urology regarding long-term management. 3. Continue to investigate for alternative sources of her confusion. Thank you very much for asking me to see her. Please call if further questions arise. KESHIA HALL M.D. SCIENTIFIC WRITER SCIENTIFIC WRITER D I MT: Perez
== END 2020-08-12 18:00 | disposition home or self-care (01) ==
LOC: ANHED 12:12 → ANH3MEDSUR 16:27
PROVIDERS: Physician Assistant; Admitting Provider Family Medicine; Emergency Provider Emergency Medicine; PCP Family Medicine; Visit Provider Family Medicine
DX: R82.90 Unspecified abnormal findings in urine (principal); R41.0 Disorientation, unspecified; D63.1 Anemia in chronic kidney disease; R79.89 Other specified abnormal findings of blood chemistry; I48.0 Paroxysmal atrial fibrillation; I13.0 Hypertensive heart and chronic kidney disease with heart failure and stage 1 through stage 4 chronic kidney disease, or unspecified chronic kidney disease; N18.4 Chronic kidney disease, stage 4 (severe); E03.9 Hypothyroidism, unspecified; I50.30 Unspecified diastolic (congestive) heart failure; R74.8 Abnormal levels of other serum enzymes; R82.71 Bacteriuria; F41.9 Anxiety disorder, unspecified; I25.118 Atherosclerotic heart disease of native coronary artery with other forms of angina pectoris; E78.5 Hyperlipidemia, unspecified; K21.9 Gastro-esophageal reflux disease without esophagitis; M10.9 Gout, unspecified; K75.9 Inflammatory liver disease, unspecified; E87.5 Hyperkalemia; R94.31 Abnormal electrocardiogram [ECG] [EKG]; K58.9 Irritable bowel syndrome, unspecified; J81.1 Chronic pulmonary edema; M17.0 Bilateral primary osteoarthritis of knee; R30.0 Dysuria; N32.81 Overactive bladder; N39.498 Other specified urinary incontinence; G46.2 Posterior cerebral artery syndrome; Z87.891 Personal history of nicotine dependence; Z79.01 Long term (current) use of anticoagulants; Z79.82 Long term (current) use of aspirin; Z20.828 Contact with and (suspected) exposure to other viral communicable diseases; Z86.73 Personal history of transient ischemic attack (TIA), and cerebral infarction without residual deficits
CPT/HCPCS: 36415; 70450; 71045; 80053; 81001; 82607; 82746; 84443; 85025; 87086; 87088; 87635; 93005; 96361; 96365; 96376; 97110; 97161; 97166; 97530; 97535; 99285; A9270; C9803; G0378; J1335; J7040; J7120; U0003

== ENCOUNTER 2020-08-15 06:35 | Emergency (ER) | payer MEDICARE, SELFPAY ==
--- NOTE | ~2020-08-15 | XR_ITS ---
XR chest 1V portable 08/15/2020 07:41 Indication: Confusion Procedure: AP portable chest Comparison: Comparison to multiple prior studies sequentially, with oldest reviewed study dated 10/2018. Findings: Cardiomegaly. Mild interstitial infiltrates bilaterally. No peripheral consolidation, effus ion or pneumothorax. No acute osseous abnormality. Impression: 1: Cardiomegaly with bilateral perihilar interstitial infiltrates, likely edema versus pneumonia. Reviewed, dictated and finalized at location A. INSPECTOR OPTICAL GLASS Impression: 1: Cardiomegaly with bilateral perihilar interstitial infiltrates, likely edema versus pneumonia.
[2020-08-15 06:33] VITALS: BP 124/96; PULSE 67; RESP 16; TEMP 36.6
--- NOTE | 2020-08-15 06:54 | ECG_ITS ---
Measurements Intervals Downs Rate: 91 P: AL: 0 QRS: -30 QRSD: 102 T: 85 QT: 357 QTc: 440 Interpretive Statements ATRIAL FIBRILLATION LOW QRS VOLTAGE IN LIMB LEADS NONSPECIFIC T-WAVE ABNORMALITY- INF/LAT LEADS BASELINE ARTIFACT- I, II, III, V3-V6 ABNORMAL ECG Electronically Signed On 08-15-2020 7:46:37 KETTLE LOADER by Devonte Miller D.O.
[2020-08-15 07:12] VITALS: BP 113/70; PULSE 89; RESP 20; O2SAT 97
[2020-08-15 07:28] LABS: Alanine Aminotransferase 43 U/L (4-35); Albumin Level 3.5 g/dL (3.5-5.1); Alkaline Phosphatase 119 U/L (38-126); Anion Gap 6 mmol/L (8-16); Aspartate Amino Transferase 64 U/L (14-36); Bilirubin,Total 0.4 mg/dL (0.2-1.3); Blood Urea Nitrogen 36 mg/dL (7-17); Calcium 8.6 mg/dL (8.4-10.2); Carbon Dioxide 26 mmol/L (22-30); Chloride 107 mmol/L (98-107); Estimated Glomerular Filt Rate 36; Glucose 84 mg/dL (65-105); Potassium 4.2 mmol/L (3.4-5.0); Sodium 139 mmol/L (137-145)
--- NOTE | 2020-08-15 07:31 | PC.NURSE ---
CALLED LAB. NOTIFIED OF ADD ON LABS
[2020-08-15 07:42] LABS: Basophils Absolute Auto 0.1 K/mm3 (0.0-0.1); Basophils Percent Auto 0.7 % (0.2-1.2); Eosinophils Absolute Auto 0.3 K/mm3 (0-0.3); Eosinophils Percent Auto 4.1 % (0-4.4); Hematocrit 37.9 % (37.0-47.0); Hemoglobin 12.1 g/dL (12.0-15.0); Immature Granulocyte Absolute 0.03 K/mm3 (0.00-0.031); Immature Granulocyte Percent A 0.4 % (0-0.5); Lymphocytes Absolute Auto 1.24 K/mm3 (0.9-3.2); Lymphocytes Percent Auto 16.9 % (18.3-44.2); Mean Corpuscular HGB Conc 31.9 g/dl (32-36); Mean Corpuscular Hemoglobin 29.7 pg (26-34); Mean Corpuscular Volume 92.9 fl (80-100); Mean Platelet Volume 11.1 fl (7.4-10.4); Monocytes Absolute Auto 0.5 K/mm3 (0.1-0.6); Monocytes Percent Auto 7.4 % (2.6-8.5); Neutrophils Absolute Auto 5.2 K/mm3 (1.3-6.7); Neutrophils Percent Auto 70.5 % (45.5-73.1); Platelet Count Result 229 k/mm3 (150-375); Red Blood Count 4.08 M/mm3 (4.2-5.4); Red Cell Distribution Width 13.4 % (11.5-14.5); White Blood Count 7.3 K/mm3 (4.5-10.0)
--- NOTE | 2020-08-15 07:46 | ED.AMS ---
HPI - Altered Mental Status General Chief Complaint: Altered Mental Status Stated Complaint: ams Time Seen by Provider: 08/15/20 07:04 Source: family Mode of arrival: EMS Limitations: altered mental status History of Present Illness HPI narrative: This patient is a 80 year old female who presents from home with her daughter due to concern about confusion. Her daughter states starting yesterday at 5 pm she started hallucinating and she is confused. She is concerned that patient may have a UTI causing these symptoms. Patient was just discharged from [facility] days ago for a similar presentation. She was evaluated by Dr. Rush of infectious disease, and he did not think patient had a UTI or that this was cause of her confusion. Her daughter states she was fine initially after being discharge. Patient has frequent hospital visits due to confusion. Her daughter is not aware of a dementia diagnosis. She denies patient having fever, chills, vomiting , pain or a fall. She reports patient is eating normally. She noticed that patient's urine appeared brown yesterday, Related Data Home Medications Medication Instructions Recorded Confirmed amlodipine 5 mg tablet 5 mg PO DAILY 07/29/19 08/10/20 apixaban 5 mg tablet 5 mg PO BID 07/29/19 08/10/20 ezetimibe 10 mg tablet 10 mg PO HS 07/29/19 08/10/20 metoprolol succinate 50 mg 50 mg PO DAILY 07/29/19 08/10/20 tablet,extended release 24 hr calcium carbonate [Calcium 600] 600 mg PO DAILY 07/31/19 08/10/20 glucosamine sulfate [Glucosamine] 500 mg PO BID 07/31/19 08/10/20 multivitamin 1 tablet PO BID 07/31/19 08/10/20 omega 5-[id number]-sxw-fish oil [Fish Oil] 1 cap PO BID 07/31/19 08/10/20 Bone Density Calcium + D 600 mg PO DAILY 12/29/19 08/10/20 PreserVision AREDS 1 tablet PO DAILY 12/29/19 08/10/20 garlic 1,000 mg PO DAILY 03/15/20 08/10/20 aspirin 81 mg PO DAILY 04/04/20 08/10/20 ciprofloxacin-dexamethasone 5 drp RIGHTEAR BID 04/04/20 08/10/20 [Ciprodex] ferrous gluconate 324 mg PO DAILY 04/04/20 08/10/20 vitamin A-vit C-vit E-zinc-Cu 2 tablet PO BID 04/28/20 08/10/20 tablet lorazepam 0.5 mg PO PRN PRN 08/10/20 08/10/20 melatonin 10 mg PO HS PRN 08/10/20 08/10/20 Allergies Allergy/AdvReac Type Severity Reaction Status Date / Time amiodarone Allergy Unknown Unknown Verified 08/15/20 06:48 amoxicillin Allergy Unknown Unknown Verified 08/15/20 06:48 atorvastatin Allergy Unknown Unknown Verified 08/15/20 06:48 celecoxib Allergy Unknown Unknown Verified 08/15/20 06:48 clavulanic acid Allergy Unknown JOINT Verified 08/15/20 06:48 PAIN codeine Allergy Unknown Unknown Verified 08/15/20 06:48 Fish Containing Products Allergy Unknown Unknown Verified 08/15/20 06:48 levofloxacin Allergy Unknown Unknown Verified 08/15/20 06:48 lisinopril Allergy Unknown Unknown Verified 08/15/20 06:48 nitrofurantoin Allergy Unknown Diarrhea Verified 08/15/20 06:48 pitavastatin Allergy Unknown Unknown Verified 08/15/20 06:48 shellfish derived Allergy Unknown Unknown Verified 08/15/20 06:48 shrimp Allergy Unknown Unknown Verified 08/15/20 06:48 Iaztorr-Xza-Jvw Reductase Allergy Unknown unknown Verified 08/15/20 06:48 Inhibitor Sulfa (Sulfonamide Allergy Unknown Unknown Verified 08/15/20 06:48 Antibiotics) sulfamethizole Allergy Unknown stomtits Verified 08/15/20 06:48 sulfamethoxazole Allergy Unknown unknown Verified 08/15/20 06:48 trimethoprim Allergy Unknown Unknown Verified 08/15/20 06:48 zolpidem Allergy Unknown Unknown Verified 08/15/20 06:48 Review of Systems Review of Systems: ROS unobtainable: Yes unobtainable due to mental status PMFSH Past Medical History Medical History Anxiety Chronic anemia Chronic atrial fibrillation Chronic kidney disease, stage 4 (severe) Baseline creatinine between 1.5 and 1.90. Coronary artery disease With history of stents. Depression Diastolic heart failure Echocardiogram April
[2020-08-15 07:51] LABS: Magnesium 2.1 mg/dL (1.6-2.3)
[2020-08-15 08:04] LABS: NT Pro B Type Natriuretic Pept 5710 PG/ML (5-100); Troponin I 0.016 ng/mL (0.000-0.034)
[2020-08-15 08:08] LABS: Add Urine Microscopic? YES; Appearance Urine Cloudy (Clear); Bacteria Urine Trace /hpf; Bilirubin Urine Negative (Negative); Blood Urine 3+ (Negative); Color Urine Red (Yellow); Glucose Urine UA Negative (Negative); Ketones Urine Negative (Negative); Leukocyte Esterase Ur 1+ LEU/UL (Negative); Mucus Urine Rare /lpf; Nitrate Urine Negative (Negative); Protein Urine 2+ mg/dL (Negative); RBC Urine >75 /hpf (0-2); Specific Grav Ur 1.013 (1.001-1.035); Squamous Epithelial Cell Urine Many /hpf (Few); Urobilinogen Urine Negative mg/dL (<2.0); WBC Urine >75 /hpf
[2020-08-15 08:23] VITALS: BP 142/70; PULSE 87; RESP 20; O2SAT 97
[2020-08-15 08:32] LABS: INR 1.1; Partial Thromboplastin Time 32.1 SECONDS (22.3-36.8); Prothrombin Time 14.4 Seconds (11.1-14.7)
[2020-08-15 09:40] VITALS: BP 137/84; PULSE 87; RESP 20; O2SAT 98
== END 2020-08-15 10:04 | disposition home or self-care (01) ==
PROVIDERS: Emergency Medicine; Emergency Provider General Practice; PCP Family Medicine
DX: I13.0 Hypertensive heart and chronic kidney disease with heart failure and stage 1 through stage 4 chronic kidney disease, or unspecified chronic kidney disease (principal); N18.4 Chronic kidney disease, stage 4 (severe); I50.40 Unspecified combined systolic (congestive) and diastolic (congestive) heart failure; Z87.891 Personal history of nicotine dependence; I48.0 Paroxysmal atrial fibrillation; E78.5 Hyperlipidemia, unspecified; K21.9 Gastro-esophageal reflux disease without esophagitis; I25.10 Atherosclerotic heart disease of native coronary artery without angina pectoris; H40.9 Unspecified glaucoma; E03.9 Hypothyroidism, unspecified; H35.30 Unspecified macular degeneration; N32.81 Overactive bladder; I65.21 Occlusion and stenosis of right carotid artery; M10.9 Gout, unspecified; Z86.718 Personal history of other venous thrombosis and embolism; Z87.440 Personal history of urinary (tract) infections; F32.9 Major depressive disorder, single episode, unspecified; F41.9 Anxiety disorder, unspecified; M19.90 Unspecified osteoarthritis, unspecified site; Z79.82 Long term (current) use of aspirin; Z79.01 Long term (current) use of anticoagulants; R94.31 Abnormal electrocardiogram [ECG] [EKG]
CPT/HCPCS: 36415; 51701; 71045; 80053; 81001; 83735; 83880; 84484; 85025; 85610; 85730; 87077; 87086; 87088; 87186; 93005; 99284